=== PATIENT | female | born 1960 | race Caucasian/White ===

== ENCOUNTER 2018-05-01 12:49 | Emergency (ER) | payer OTHER, SELFPAY ==
[2018-05-01 12:55] VITALS: BP 113/75; PULSE 78; RESP 18; TEMP 36.7; O2SAT 98
--- NOTE | 2018-05-01 13:50 | ED_ITS ---
HPI - Back Pain/Injury <Elena Benton PA-C - Last Filed: 05/01/18 19:41> General Chief Complaint: Back Pain/Injury Stated Complaint: BACK PAIN/LEFT SIDE Time Seen by Provider: 05/01/18 13:46 Source: patient Mode of arrival: ambulatory Limitations: no limitations History of Present Illness HPI Narrative: This 58-year-old female complains of left sided back pain after a fall yesterday. She states she on a stump, and fell backwards, hitting her right lower thoracic and lumbar area on a stump. She denies any other injury, head contusion or LOC. She states she was slightly sore yesterday but took Tylenol and used a heating pad and felt okay last night. She states that she slept fine. She states that initially on awakening this morning she did not have any pain, but throughout the day she has had progressively worsening pain that feels like it is on the left side of her back, but can radiate down into her lower back, and also seems to radiate around to her anterior thigh as well. She does think she could have hit her hip area on the stump as well. She denies any weakness or paresthesia in the left leg. She denies any pain in the posterior or lateral leg. She has not had any urinary or bowel problems or changes. She states that she is not in pain at rest. It isn't painful to move her leg but painful to move her trunk. Pain has not been relieved with Tylenol today as it was yesterday. Related Data Home Medications Medication Instructions Recorded Confirmed albuterol sulfate 1 puff INHALATION Q4-6H PRN 05/01/18 05/01/18 cetirizine [Zyrtec] 10 mg PO QPM 05/01/18 05/01/18 cholecalciferol (vitamin D3) 5,000 unit PO QPM 05/01/18 05/01/18 [Vitamin D3] citalopram [Celexa] 20 mg PO QPM 05/01/18 05/01/18 fluticasone-salmeterol [Advair 1 puff INHALATION BID 05/01/18 05/01/18 Diskus] [id number]-ftgicawz-[id number] 1 tab PO QPM 05/01/18 05/01/18 [Multivitamin 50 Plus] vitamin K2 1 tab PO QPM 05/01/18 05/01/18 Previous Rx's Medication Instructions Recorded cyclobenzaprine 10 mg PO Q8H PRN #14 tab 05/01/18 lidocaine [Lidoderm] 2 patch TOP DAILY #30 each 05/01/18 meloxicam [Mobic] 15 mg PO DAILY #20 tab 05/01/18 oxycodone-acetaminophen [Percocet] 1 tab PO Q6H PRN #8 tab 05/01/18 Allergies Allergy/AdvReac Type Severity Reaction Status Date / Time hydrocodone [From VICODIN] Allergy Mild flu like Verified 05/01/18 14:42 symptoms Review of Systems <Elena Benton PA-C - Last Filed: 05/01/18 19:41> Review of Systems All systems reviewed & are unremarkable except as noted in HPI and below Exam <Elena Benton PA-C - Last Filed: 05/01/18 19:41> Narrative Exam Narrative: GENERAL APPEARANCE: Patient sitting comfortably, in no distress. LUNGS: Clear to auscultation bilaterally. HEART: Rate and rhythm regular without murmur, normal S1 and S2, no S3 or S4. MUSCULOSKELETAL: No point tenderness over the thoracic or lumbar spine, however at the T12-L2 levels she has left paraspinal musculature tenderness, also tenderness in the remainder of the musculature out to the mid scapular line through the lumbar area and also posterior hip and sacroiliac sites. No bony tenderness over the left hip, femur, or knee. She has full range of motion of the left hip, knee, and ankle without tenderness. Tender with any attempts at trunk range of motion, able to move from supine to sit. Lower extremity strength 5/5 bilaterally throughout bilateral hip flexors, knee extensors, foot plantar flexion. NEUROVASCULAR: Ft are warm and pink with pedal pulses intact, sensation grossly intact Initial Vital Signs Initial Vital Signs: Vital Signs Temperature 98.0 F 05/01/18 12:55 Pulse Rate 78 05/01/18 12:55 Respiratory Rate 18 05/01/18 12:55 Blood Pressure 113/75 05/01/18 12:55 Pulse Oximetry 98 05/01/18 12:55 <Jasiel Benavidez DO - Last Filed: 05/04/18 18:38> Initial Vital Signs Initial Vital Signs: Vital Signs Temperature 98.0 F 05/01/18 12:55 Pulse Rate 78 05/01/18 12:55 Respiratory Rate 18 05/01/18 12:55 Blood Pressure 113/75 05/01/18 12:55 Pulse Oximetry 98 05/01/18 12:55 Course <Elena Benton PA-C - Last Filed: 05/01/18 19:41> Additional Information: Patient is feeling more comfortable at the time of discharge. No acute neurologic symptoms. Advised return if any acute changes/ worsening, otherwise rest, medication management and follow-up with PCP as she may need further workup or a referral for therapy. She is agreeable Orders Ordered: Discontinued Medications Ibuprofen (Advil) 800 mg PO NOW ONE Stop: 05/01/18 14:03 Last Admin: 05/01/18 14:12 Dose: 800 mg Oxycodone/Acetaminophen (Percocet 5/325) 1 tab PO NOW ONE Stop: 05/01/18 14:03 Last Admin: 05/01/18 14:12 Dose: 1 tab Vital Signs - 8 hr 05/01/18 12:55 05/01/18 16:30 Temperature 98.0 F 97.9 F Pulse Rate 78 65 Respiratory Rate 18 16 Blood Pressure 113/75 Blood Pressure [Left Arm] 107/65 Pulse Oximetry 98 98 <Jasiel Benavidez DO - Last Filed: 05/04/18 18:38> Orders Ordered: Discontinued Medications Ibuprofen (Advil) 800 mg PO NOW ONE Stop: 05/01/18 14:03 Last Admin: 05/01/18 14:12 Dose: 800 mg Oxycodone/Acetaminophen (Percocet 5/325) 1 tab PO NOW ONE Stop: 05/01/18 14:03 Last Admin: 05/01/18 14:12 Dose: 1 tab Vital Signs - 8 hr 05/01/18 12:55 05/01/18 16:30 Temperature 98.0 F 97.9 F Pulse Rate 78 65 Respiratory Rate 18 16 Blood Pressure 113/75 Blood Pressure [Left Arm] 107/65 Pulse Oximetry 98 98 MDM - Back Pain/Injury <Elena Benton PA-C - Last Filed: 05/01/18 19:41> Imaging Data T/L, hip: Radiologist's impression: [address] [address] XRay Report Signed Patient: Jinny Felder MR#: [id number] : 1960 Acct:[id number] Age/Sex: 58 / F Date of Service: 05/01/18 Loc: ED Accession Number: [id number] Procedure: XR thoracic spine 3V Ordering Provider: Elena Benton P.A-C PROCEDURE: XR THORACIC SPINE 3V INDICATIONS: fall, L. paraspinal pain TECHNIQUE: 3 views of the thoracic spine were acquired. COMPARISON: None. FINDINGS: Bones: On the lateral views, the cervicothoracic junction is adequately visualized and the alignment through this region is within normal limits. The vertebral body heights are within normal limits throughout the thoracic spine without evidence to suggest acute compression fracture. The bone mineralization is within normal limits. Mild to moderate multilevel degenerative changes of the thoracic spine are evident. Soft tissues: The imaged overlying soft tissues of the chest are within normal limits. IMPRESSION: Mild to moderate multilevel degenerative changes of the thoracic spine. No fractures. Dictated by: Pool Garcia M.D. on 05/01/2018 at 14:03 Approved by: Pool Garcia M.D. on 05/01/2018 at 14:03 [place] [address] XRay Report Signed Patient: Jinny Felder MR#: [id number] : 1960 Acct:[id number] Age/Sex: 58 / F Date of Service: 05/01/18 Loc: ED Accession Number: [id number] Procedure: XR hip w pel if done LT 2V Ordering Provider: Elena Benton P.A-C PROCEDURE: XR HIP W PEL IF DONE LT 2V INDICATIONS: fall, pain TECHNIQUE: 2 views of the hip were acquired. COMPARISON: None. FINDINGS: Bones: No fractures or dislocations. No suspicious bony lesions. The visualized pelvic ring appears intact. Mild degenerative changes of the bilateral hips are present. There moderate degenerative changes of the imaged portions of the lumbosacral spine and pubic symphysis. Soft tissues: No suspicious soft tissue calcifications or masses. A surgical clip within the left hemipelvis likely is related to a previous tubal ligation procedure. A large amount of residual stool is seen throughout the colon. This may be related to constipation. Please correlate clinically. IMPRESSION: Mild degenerative changes of the left hip without acute fracture evident. Dictated by: Pool Garcia M.D. on 05/01/2018 at 13:59 Approved by: Pool Garcia M.D. on 05/01/2018 at 14:03 View Report History [address] [address] XRay Report Signed Patient: Jinny Felder MR#: [id number] : 1960 Acct:[id number] Age/Sex: 58 / F Date of Service: 05/01/18 Loc: ED Accession Number: [id number] Procedure: XR lumbar spine 2-3V Ordering Provider: Elena Benton P.A-C PROCEDURE: XR LUMBAR SPINE 2-3V INDICATIONS: fall, contusion, L paraspinal pain, anterior LE pain TECHNIQUE: 2 views of the lumbar spine were acquired. COMPARISON: [facility], MR, L-SPINE WITHOUT CONTRAST, 07/16/2012, 17:54. FINDINGS: Bones: There are 5 lumbar-type vertebral bodies. The lowest intervertebral disk space is designated as L5-S1. The vertebral body heights are well-maintained without evidence to suggest an acute compression fracture. The bone mineralization is within normal limits. Moderate degenerative changes of the lumbar spine are identified. Soft tissues: The soft tissues of the imaged abdomen and pelvis are within normal limits. A large to moderate amount of residual stool is seen throughout the included portions of the colon. IMPRESSION: 1. Moderate degenerative changes of the lumbar spine without an acute fracture evident. 2. Prominent residual stool within the colon may represent constipation. Dictated by: Pool Garcia M.D. on 05/01/2018 at 14:04 Approved by: Pool Garcia M.D. on 05/01/2018 at 14:09 View Report History [address] [address] XRay Report Signed Patient: Jinny Felder MR#: [id number] : 1960 Acct:[id number] Age/Sex: 58 / F Date of Service: 05/01/18 Loc: ED Accession Number: [id number] Procedure: XR lumbar spine 2-3V Ordering Provider: Elena Benton P.A-C PROCEDURE: XR LUMBAR SPINE 2-3V INDICATIONS: fall, contusion, L paraspinal pain, anterior LE pain TECHNIQUE: 2 views of the lumbar spine were acquired. COMPARISON: [facility], MR, L-SPINE WITHOUT CONTRAST, 07/16/2012, 17:54. FINDINGS: Bones: There are 5 lumbar-type vertebral bodies. The lowest intervertebral disk space is designated as L5-S1. The vertebral body heights are well-maintained without evidence to suggest an acute compression fracture. The bone mineralization is within normal limits. Moderate degenerative changes of the lumbar spine are identified. Soft tissues: The soft tissues of the imaged abdomen and pelvis are within normal limits. A large to moderate amount of residual stool is seen throughout the included portions of the colon. IMPRESSION: 1. Moderate degenerative changes of the lumbar spine without an acute fracture evident. 2. Prominent residual stool within the colon may represent constipation. Dictated by: Pool Garcia M.D. on 05/01/2018 at 14:04 Approved by: Pool Garcia M.D. on 05/01/2018 at 14:09 Discharge Plan Departure Patient Disposition: Home Clinical Impression: Strain of lumbar region, Strain of left hip, Contusion of multiple sites Discharge Date/Time: 05/01/18 16:33 Interventions: ED Discharge Assessment Last Done: 05/01/18 16:32 Instructions: DI for Low Back Pain Activity Restrictions/Additional Instructions: There were no acute breaks or problems found on your x-rays today. You do have a little bit of arthritis, and likely strains on top of this due to the falls. I have sent in a prescription for an anti-inflammatory, called meloxicam, and the muscle relaxant, Flexeril that you have had in the past. I have also sent in a prescription for lidocaine patches, and you can use all of these as needed. I have written you a prescription for a few Percocet in case you need these over the next day or 2 to help with pain. Please remember not to take the muscle relaxant or pain pills and drive since they can make you sleepy. Please follow-up with your PCM in a few days to assess your progress and determine whether any further testing or imaging studies are needed, they may be if you are not getting better. Please return here as we talked about if you have acutely worsening symptoms, or new symptoms such as weakness or numbness in your extremities or difficulty urinating. Prescriptions: New cyclobenzaprine 10 mg tablet 10 mg PO Q8H PRN (Reason: muscle spasm) Qty: 14 RF: 0 meloxicam [Mobic] 15 mg tablet 15 mg PO DAILY Qty: 20 RF: 0 oxycodone-acetaminophen [Percocet] 5-325 mg tablet 1 tab PO Q6H PRN (Reason: acute back and hip pain) Qty: 8 RF: 0 lidocaine [Lidoderm] 5 % adhesive patch,medicated 2 patch TOP DAILY Qty: 30 RF: 0 No Action fluticasone-salmeterol [Advair Diskus] 250-50 mcg/dose blister with device 1 puff Inhalation BID RF: 0 citalopram [Celexa] 20 mg tablet 20 mg PO QPM RF: 0 cetirizine [Zyrtec] 10 mg Tablet 10 mg PO QPM RF: 0 albuterol sulfate 90 mcg/actuation Hfa Aerosol Inhaler 1 puff INHALATION Q4-6H PRN (Reason: Shortness Of Breath) RF: 0 [id number]-jtoatyiw-seccxq [Multivitamin 50 Plus] Tablet 1 tab PO QPM RF: 0 cholecalciferol (vitamin D3) [Vitamin D3] 5,000 unit Tablet 5,000 unit PO QPM RF: 0 vitamin K2 1 tab PO QPM RF: 0 Referrals: [facility] [Provider Group] <Jasiel Benavidez DO - Last Filed: 05/04/18 18:38> Cosign ED Attending Kindra Attestation: I was available for consultation during this patient's emergency department encounter
--- NOTE | 2018-05-01 14:02 | DI.RAD.S_ITS ---
PROCEDURE: XR THORACIC SPINE 3V INDICATIONS: fall, L. paraspinal pain TECHNIQUE: 3 views of the thoracic spine were acquired. COMPARISON: None. FINDINGS: Bones: On the lateral views, the cervicothoracic junction is adequately visualized and the alignment through this region is within normal limits. The vertebral body heights are within normal limits throughout the thoracic spine without evidence to suggest acute compression fracture. The bone mineralization is within normal limits. Mild to moderate multilevel degenerative changes of the thoracic spine are evident. Soft tissues: The imaged overlying soft tissues of the chest are within normal limits. IMPRESSION: Mild to moderate multilevel degenerative changes of the thoracic spine. No fractures. Dictated by: Pool Garcia M.D. on 05/01/2018 at 14:03 Approved by: Pool Garcia M.D. on 05/01/2018 at 14:03
--- NOTE | 2018-05-01 14:02 | DI.RAD.S_ITS ---
PROCEDURE: XR LUMBAR SPINE 2-3V INDICATIONS: fall, contusion, L paraspinal pain, anterior LE pain TECHNIQUE: 2 views of the lumbar spine were acquired. COMPARISON: [facility], , L-SPINE WITHOUT CONTRAST, 07/16/2012, 17:54. FINDINGS: Bones: There are 5 lumbar-type vertebral bodies. The lowest intervertebral disk space is designated as L5-S1. The vertebral body heights are well-maintained without evidence to suggest an acute compression fracture. The bone mineralization is within normal limits. Moderate degenerative changes of the lumbar spine are identified. Soft tissues: The soft tissues of the imaged abdomen and pelvis are within normal limits. A large to moderate amount of residual stool is seen throughout the included portions of the colon. IMPRESSION: 1. Moderate degenerative changes of the lumbar spine without an acute fracture evident. 2. Prominent residual stool within the colon may represent constipation. Dictated by: Pool Garcia M.D. on 05/01/2018 at 14:04 Approved by: Pool Garcia M.D. on 05/01/2018 at 14:09
--- NOTE | 2018-05-01 14:02 | DI.RAD.S_ITS ---
PROCEDURE: XR HIP W PEL IF DONE LT 2V INDICATIONS: fall, pain TECHNIQUE: 2 views of the hip were acquired. COMPARISON: None. FINDINGS: Bones: No fractures or dislocations. No suspicious bony lesions. The visualized pelvic ring appears intact. Mild degenerative changes of the bilateral hips are present. There moderate degenerative changes of the imaged portions of the lumbosacral spine and pubic symphysis. Soft tissues: No suspicious soft tissue calcifications or masses. A surgical clip within the left hemipelvis likely is related to a previous tubal ligation procedure. A large amount of residual stool is seen throughout the colon. This may be related to constipation. Please correlate clinically. IMPRESSION: Mild degenerative changes of the left hip without acute fracture evident. Dictated by: Pool Garcia M.D. on 05/01/2018 at 13:59 Approved by: Pool Garcia M.D. on 05/01/2018 at 14:03
[2018-05-01] MEDS: OXYCODONE/ACETAMINOPHEN 5/325 TABLET 1 TAB PO (14:12)
[2018-05-01] MEDS: IBUPROFEN 400 MG TABLET 800 MG PO (14:12)
--- NOTE | 2018-05-01 14:51 | PC.NURSE ---
lung sounds clear throughout.
[2018-05-01 16:30] VITALS: BP 107/65; PULSE 65; RESP 16; TEMP 36.6; O2SAT 98
== END 2018-05-01 16:33 | disposition home or self-care (01) ==
PROVIDERS: Emergency Provider Internal Medicine; PCP Orthopaedic Surgery
DX: S39.012A Strain of muscle, fascia and tendon of lower back, initial encounter (principal); S76.012A Strain of muscle, fascia and tendon of left hip, initial encounter; W19.XXXA Unspecified fall, initial encounter
CPT/HCPCS: 72072; 72100; 73502; 99282; 99284

== ENCOUNTER 2019-02-08 16:46 | Emergency (ER) | payer OTHER, SELFPAY ==
[2019-02-08 16:48] VITALS: BP 115/70; PULSE 82; RESP 14; TEMP 36.7; O2SAT 98
[2019-02-08 17:04] LABS: Bacteria Urine None Seen; RBC Urine None Seen (0-5/HPF)
[2019-02-08 17:16] LABS: Culture Indicated Urine Specimen Cultured; WBC Urine 1-5/HPF (0-5/HPF)
--- NOTE | 2019-02-08 17:25 | ED.FEMALEGU ---
HPI - Female Genitourinary <Varsha AwadEDUARDO - Last Filed: 02/08/19 20:40> General Chief complaint: Urogenital-Female Stated complaint: SUSPECTED UTI Time Seen by Provider: 02/08/19 16:54 Source: patient Mode of arrival: Ambulatory Limitations: no limitations History of Present Illness HPI Narrative: 59-year-old female presents emergency department today complaining of dysuria, frequency, and chills since yesterday. She states she has had a few urinary tract infections years ago in the past and feels like this is similar. She denies any back pain, abdominal pain, nausea, vomiting, diarrhea, chest pain, shortness of breath, or other concerning symptoms. She states she is just getting over a cold but states she is feeling much better and has not been coughing very much at all. Related Data Home Medications Medication Instructions Recorded Confirmed albuterol sulfate 1 puff INHALATION Q4-6H PRN 05/01/18 05/01/18 cetirizine [Zyrtec] 10 mg PO QPM 05/01/18 05/01/18 cholecalciferol (vitamin D3) 5,000 unit PO QPM 05/01/18 05/01/18 [Vitamin D3] citalopram [Celexa] 20 mg PO QPM 05/01/18 05/01/18 fluticasone propion-salmeterol 1 puff INHALATION BID 05/01/18 05/01/18 [Advair Diskus] qddezvukkzrl-csupsaet-hpzrvt 1 tab PO QPM 05/01/18 05/01/18 [Multivitamin 50 Plus] vitamin K2 1 tab PO QPM 05/01/18 05/01/18 Previous Rx's Medication Instructions Recorded cyclobenzaprine 10 mg PO Q8H PRN #14 tab 05/01/18 lidocaine [Lidoderm] 2 patch TOP DAILY #30 each 05/01/18 meloxicam [Mobic] 15 mg PO DAILY #20 tab 05/01/18 oxycodone-acetaminophen [Percocet] 1 tab PO Q6H PRN #8 tab 05/01/18 nitrofurantoin macrocrystal 100 mg PO Q12H 5 Days #10 cap 02/08/19 nitrofurantoin macrocrystal 100 mg PO Q12H 5 Days #10 cap 02/08/19 Allergies Allergy/AdvReac Type Severity Reaction Status Date / Time hydrocodone [From VICODIN] Allergy Mild flu like Verified 02/08/19 16:51 symptoms Review of Systems <EDUARDO Díaz - Last Filed: 02/08/19 20:40> Review of Systems Narrative: REVIEW OF SYSTEMS: GENERAL: Denies fever, chills, malaise, or wt. loss. HENT: No head trauma, sore throat, or dysphagia. EYES: No loss of vision, double vision, eye pain, or irritation. CARDIOVASCULAR: No chest pain, palpitations, or orthopnea. RESPIRATORY: No shortness of breath or cough. GASTROINTESTINAL: Denies abdominal pain. GENITOURINARY: Complains of dysuria, see HPI.. No vaginal discharge or dyspareunia. Denies concerns for STIs MUSCULOSKELETAL: No pain, weakness, or trauma. INTEGUMENTARY: No rash, lesions, or pruritus. NEURO: No numbness, tingling, memory loss, confusion, or headaches. PSYCH: No behavior or mood changes. Patient History <EDUARDO Díaz - Last Filed: 02/08/19 20:40> Medical History Anxiety and depression (Chronic) Asthma (Chronic) Seasonal allergies (Chronic) Surgical History History of partial hysterectomy (Resolved) History of tonsillectomy (Resolved) History of tubal ligation (Resolved) Family History (Updated 05/01/18 @ 14:09 by Elena Benton PA-C) Other Family history non-contributory Social History (Updated 05/01/18 @ 14:09 by Elena Benton PA-C) Smoking Status: Current every day smoker additional social history: No EtOH Family History Other Family history non-contributory Social History Smoking Status: Current every day smoker additional social history: No EtOH alcohol intake frequency: 0-2 drinks per day Substance Use Type: marijuana Exam <EDUARDO Díaz - Last Filed: 02/08/19 20:40> Narrative Exam Narrative: PHYSICAL EXAMINATION: GENERAL: Well groomed, alert, and cooperative. Answers questions promptly and appropriately. Vital signs noted. HENT: Normocephalic, atraumatic. Hearing intact. Oral mucosa is pink and moist. EYES: Conjunctiva pink, sclera white, no periorbital swelling. CARDIOVASCULAR: Regular rate. RESPIRATORY: Normal respiratory rate, trachea midline, airway patent. No stridor, nasal flaring or accessory muscle use. GASTROINTESTINAL: Bowel sounds normoactive. Abdomen is soft and non-tender. No organomegaly, no palpable masses. GENITALURINARY: No flank tenderness. MUSCULOSKELETAL: Normal gait and coordination. Equal tone and mass bilaterally. EXTREMITIES: CMS intact, no pedal edema. SKIN: Warm, dry, soft, appropriate color for ethnicity. No lesions, rashes, or wounds. NEURO: Alert and Oriented X 3. Good coordination. No ataxia, or sensory deficits, or cognitive issues. PSYCH: Appropriate affect and mood. Initial Vital Signs Initial Vital Signs: Vital Signs Temperature 98.0 F 02/08/19 16:48 Pulse Rate 82 02/08/19 16:48 Respiratory Rate 14 02/08/19 16:48 Blood Pressure 115/70 02/08/19 16:48 Pulse Oximetry 98 02/08/19 16:48 <Jasiel Benavidez DO - Last Filed: 02/09/19 08:22> Initial Vital Signs Initial Vital Signs: Vital Signs Temperature 98.0 F 02/08/19 16:48 Pulse Rate 82 02/08/19 16:48 Respiratory Rate 14 02/08/19 16:48 Blood Pressure 115/70 02/08/19 16:48 Pulse Oximetry 98 02/08/19 16:48 Course <EDUARDO Díaz - Last Filed: 02/08/19 20:40> Orders Ordered: Discontinued Medications Nitrofurantoin Macrocrystals (Macrobid 100mg Prepack) 1 bottle MISC SEEINSTR ONE Stop: 02/08/19 17:27 Last Admin: 02/08/19 17:57 Dose: 1 bottle Documented by: JAMAL Vital Signs Vital signs: Vital Signs - 8 hr 02/08/19 16:48 02/08/19 17:59 Temperature 98.0 F Pulse Rate 82 82 Respiratory Rate 14 16 Blood Pressure 115/70 118/78 Pulse Oximetry 98 97 <Jasiel Benavidez DO - Last Filed: 02/09/19 08:22> Orders Ordered: Discontinued Medications Nitrofurantoin Macrocrystals (Macrobid 100mg Prepack) 1 bottle MISC SEEINSTR ONE Stop: 02/08/19 17:27 Last Admin: 02/08/19 17:57 Dose: 1 bottle Documented by: JAMAL Vital Signs Vital signs: Vital Signs - 8 hr 02/08/19 16:48 02/08/19 17:59 Temperature 98.0 F Pulse Rate 82 82 Respiratory Rate 14 16 Blood Pressure 115/70 118/78 Pulse Oximetry 98 97 MDM - Female Genitourinary <EDUARDO Díaz - Last Filed: 02/08/19 20:40> Medical Records Attestation: I reviewed the patient's medical records. Lab Data Attestation: I reviewed the patient's lab results. Labs: Lab Results 02/08/19 Range/Units 16:53 Urine RBC None seen (0-5/HPF) Urine WBC 1-5/hpf (0-5/HPF) Urine Bacteria None seen (None) Ur Culture Indicated? Specimen cultured Urine Dip Bedside Urine Glucose Negative Bedside Urine Bilirubin - Negative Bedside Urine Ketone - Negative Urine Specific [place] 1.005 Bedside Urine Occult Blood +/- Bedside Urine pH 6.0 Bedside Urine Protein - Negative Bedside Urine Urobilinogen - Negative Bedside Urine Nitrite - Negative Bedside Urine Leukocytes + 70 Esterase MDM Narrative Medical decision making narrative: Exam and history consistent with urinary tract infection. However urinalysis only shows small amount of blood and white blood cells. Due to the fact that patient is very symptomatic, she was given antibiotics. She was instructed that she will get a call in the next few days if antibiotics need to be changed. She was encouraged to follow up with her primary care provider in the next week. Return precautions given. <Jasiel Benavidez DO - Last Filed: 02/09/19 08:22> Lab Data Labs: Lab Results 02/08/19 Range/Units 16:53 Urine RBC None seen (0-5/HPF) Urine WBC 1-5/hpf (0-5/HPF) Urine Bacteria None seen (None) Ur Culture Indicated? Specimen cultured Urine Dip Bedside Urine Glucose Negative Bedside Urine Bilirubin - Negative Bedside Urine Ketone - Negative Urine Specific [place] 1.005 Bedside Urine Occult Blood +/- Bedside Urine pH 6.0 Bedside Urine Protein - Negative Bedside Urine Urobilinogen - Negative Bedside Urine Nitrite - Negative Bedside Urine Leukocytes + 70 Esterase Discharge Plan Departure Patient Disposition: Home Clinical Impression: Urinary tract infection Qualifiers: Urinary tract infection type: acute cystitis Hematuria presence: with hematuria Qualified Code(s): N30.01 - Acute cystitis with hematuria Discharge Date/Time: 02/08/19 18:00 Instructions: DI for Urinary Tract Infection (UTI) Activity Restrictions/Additional Instructions: Thank you for entrusting me with your care today. As discussed, it appears to have a urinary tract infection. You will receive a call in 2 days if your antibiotics need to be changed based on urine culture. Please follow up with your primary care provider next few weeks if symptoms continue. Return to the emergency department if you develop chest pain, shortness of breath, syncope, slurred speech, fevers, or other concerning symptoms. [facility]. Prescriptions: New nitrofurantoin macrocrystal 100 mg capsule 100 mg PO Q12H 5 Days Qty: 10 RF: 0 nitrofurantoin macrocrystal 100 mg capsule 100 mg PO Q12H 5 Days Qty: 10 RF: 0 No Action fluticasone propion-salmeterol [Advair Diskus] 250-50 mcg/dose blister with device 1 puff Inhalation BID RF: 0 citalopram [Celexa] 20 mg tablet 20 mg PO QPM RF: 0 cetirizine [Zyrtec] 10 mg Tablet 10 mg PO QPM RF: 0 albuterol sulfate 90 mcg/actuation Hfa Aerosol Inhaler 1 puff INHALATION Q4-6H PRN (Reason: Shortness Of Breath) RF: 0 sfokmgfgsqvf-xwexgxfz-smovjh [Multivitamin 50 Plus] Tablet 1 tab PO QPM RF: 0 cholecalciferol (vitamin D3) [Vitamin D3] 5,000 unit Tablet 5,000 unit PO QPM RF: 0 vitamin K2 1 tab PO QPM RF: 0 cyclobenzaprine 10 mg tablet 10 mg PO Q8H PRN (Reason: muscle spasm) Qty: 14 RF: 0 meloxicam [Mobic] 15 mg tablet 15 mg PO DAILY Qty: 20 RF: 0 oxycodone-acetaminophen [Percocet] 5-325 mg tablet 1 tab PO Q6H PRN (Reason: acute back and hip pain) Qty: 8 RF: 0 lidocaine [Lidoderm] 5 % adhesive patch,medicated 2 patch TOP DAILY Qty: 30 RF: 0 Referrals: Kervin Ghotra MD [Primary Care Provider] - <Jasiel Benavidez DO - Last Filed: 02/09/19 08:22> Sign Out Provider Sign Out Attestation: I was available for consultation during this patient's emergency department visit. This chart is signed by myself for administrative purposes only. I did not have direct contact with this patient during this visit. They were seen independently by the APC.
[2019-02-08] MEDS: NITROFURANTOIN 100MG PREPACK 1 BOTTLE MISC (17:57)
[2019-02-08 17:59] VITALS: BP 118/78; PULSE 82; RESP 16; O2SAT 97
== END 2019-02-08 18:00 | disposition home or self-care (01) ==
PROVIDERS: Emergency Provider Nurse Practitioner; PCP Orthopaedic Surgery
DX: N30.01 Acute cystitis with hematuria (principal)
CPT/HCPCS: 81003; 81015; 87077; 87086; 87186; 99282; 99283

== ENCOUNTER 2021-03-30 16:57 | Emergency (ER) | payer OTHER, SELFPAY ==
[2021-03-30 17:04] VITALS: BP 117/70; PULSE 85; RESP 18; TEMP 36.9; O2SAT 91; BMI 25.8
--- NOTE | 2021-03-30 17:13 | DI.RAD.S_ITS ---
PROCEDURE: XR CHEST 1V INDICATIONS: Short of breath, the hypoxia TECHNIQUE: One view of the chest was acquired. COMPARISON: None. FINDINGS: Surgical changes and devices: None. Lungs and pleura: Lungs are clear. No pleural effusions or pneumothorax. Mediastinum: Mediastinal contours appear normal. Heart size is normal. Bones and chest wall: No suspicious bony lesions. Age-appropriate bony degenerative changes are seen. Minimal dextroconvex scoliotic curvature is seen. Overlying soft tissues appear unremarkable. IMPRESSION: Unremarkable portable chest for age, with clear lungs. Dictated by: Raheem Jackson M.D. on 03/30/2021 at 16:43 Approved by: Raheem Jackson M.D. on 03/30/2021 at 16:44
[2021-03-30 17:31] LABS: Add Manual Diff / Slide Review NO; Basophils Absolute Auto 100 /uL (0-100); Basophils Percent Auto 0.7 % (0-2); Eosinophils Absolute Auto 200 /uL (0-450); Hematocrit 40.8 % (36-46); Hemoglobin 13.7 g/dL (12.0-16.0); Lymphocytes Absolute Auto 1400 /uL (1100-4500); Lymphocytes Percent Auto 18.2 % (25-40); Mean Corpuscular HGB Conc 33.5 % (30-36); Mean Corpuscular Hemoglobin 32.6 PG (26-34); Mean Corpuscular Volume 97.4 fL (80-100); Monocytes Absolute Auto 800 /uL (0-900); Neutrophils Absolute Auto 5300 /uL (1500-7000); Neutrophils Percent Auto 68.1 % (50-75); Platelet Count 258 X10^3/uL (150-400); Red Blood Cell Count 4.19 X10^6/uL (4.0-5.2); Red Cell Distribution Width 12.1 % (11.6-14.8); White Blood Cell Count 7.7 X10^3/uL (4.5-11.0)
[2021-03-30 17:46] LABS: COVID19 -Nasal RAPID Negative (Negative)
[2021-03-30 18:02] LABS: BUN Creatinine Ratio 16.5 (6-22); Blood Urea Nitrogen 15 mg/dL (7-17); Calcium 9.7 mg/dL (8.4-10.2); Carbon Dioxide 28 mmol/L (22-32); Chloride 104 mmol/L (98-107); Creatine Kinase 41 U/L (30-135); Estimated Glomerular Filt Rate > 60.0 mL/min (>60); Glucose 107 mg/dL (80-110); HEMOLYSIS < 15 (0-50); Lactate (Lactic Acid) 0.7 mmol/L (0.7-2.1); Magnesium 2.1 mg/dL (1.6-2.3); Potassium 4.4 mmol/L (3.4-5.1); Sodium 138 mmol/L (137-145)
--- NOTE | 2021-03-30 18:10 | ED_ITS ---
HPI - SOB/Dyspnea General Chief Complaint: Shortness of Breath/Dyspnea Stated Complaint: SOB Time Seen by Provider: 03/30/21 18:06 Source: patient Mode of arrival: Ambulatory Limitations: no limitations History of Present Illness HPI Narrative: 61F daily smoker with history of seizure presents with a significant other and a chief complaint of increasing shortness of breath and hacking cough for the past few days. She has been using her Advair and Mucinex as instructed. She does not have a rescue inhaler. She states her symptoms started acting up after she started washing after a friend's cats to help them out. She has a known allergy to cats. She denies any fever chills. She has had no nausea, vomiting or diarrhea. Related Data Home Medications Medication Instructions Recorded Confirmed albuterol sulfate 90 mcg/actuation 1 puff INHALATION Q4-6H PRN 05/01/18 05/01/18 aerosol inhaler cetirizine 10 mg tablet (Zyrtec) 10 mg PO QPM 05/01/18 05/01/18 cholecalciferol (vitamin D3) 125 5,000 unit PO QPM 05/01/18 05/01/18 mcg (5,000 unit) tablet (Vitamin D3) citalopram 20 mg tablet 20 mg PO QPM 05/01/18 05/01/18 fluticasone 250 mcg-salmeterol 50 1 puff INHALATION BID 05/01/18 05/01/18 mcg/dose blistr powdr for inhalation akohqnjolmvx-jcylxzsd-bulhix 1 tab PO QPM 05/01/18 05/01/18 tablet (Multivitamin 50 Plus) vitamin K2 1 tab PO QPM 05/01/18 05/01/18 Previous Rx's Medication Instructions Recorded cyclobenzaprine 10 mg tablet 10 mg PO Q8H PRN #14 tab 05/01/18 lidocaine 5 % topical patch 2 patch TOP DAILY #30 each 05/01/18 (Lidoderm) meloxicam 15 mg tablet (Mobic) 15 mg PO DAILY #20 tab 05/01/18 oxycodone-acetaminophen 5 mg-325 1 tab PO Q6H PRN #8 tab 05/01/18 mg tablet (Percocet) albuterol sulfate 90 mcg/actuation 2 puff INHALATION Q4H PRN #1 each 03/30/21 breath activated powder inhaler doxycycline hyclate 100 mg tablet 100 mg PO BID #20 tab 03/30/21 prednisone 20 mg tablet 20 mg PO DAILY #5 tab 03/30/21 Allergies Allergy/AdvReac Type Severity Reaction Status Date / Time hydrocodone [From VICODIN] Allergy Mild flu like Verified 02/08/19 16:51 symptoms Review of Systems Review of Systems Narrative: GENERAL: Denies chills, fatigue, malaise, fever, sweats. HEENT: Denies sinus pain, ear pain, sore throat, difficulty swallowing, dizziness. RESPIRATORY: See HPI CARDIOVASCULAR: Denies chest pain, palpitations, orthopnea, edema, GASTROINTESTINAL: Denies nausea, vomiting, abdominal pain, diarrhea, constipation, melena. : Denies dysuria, frequency, incontinence, hematuria, urinary retention. MUSCULOSKELETAL: denies weakness, joint pain, or bony pain SKIN: Denies rash, skin lesions, or other NEUROLOGIC: Denies weakness, headache, numbness, change in speech, confusion, seizures, incoordination. PSYCHIATRIC: No concerning psychosocial issues. 12 point review of systems is negative except for those stated above Patient History Medical History Anxiety and depression Asthma Seasonal allergies Surgical History History of partial hysterectomy History of tonsillectomy History of tubal ligation Family History Other Family history non-contributory Social History Smoking Status: Current every day smoker additional social history: No EtOH Smoking Status: Current every day smoker tobacco type: cigarettes alcohol intake frequency: 0-2 drinks per day Substance Use Type: marijuana Exam Narrative Exam Narrative: GENERAL: [61 year old patient appears stated age. Well-developed patient, in mild distress. HEAD: Atraumatic. Normocephalic. EYES: Pupils equal round and reactive. Extraocular motions intact. No scleral icterus. No injection or drainage. ENT: Nose without bleeding, purulent drainage. Throat without erythema, tonsillar hypertrophy or exudate. Airway patent. NECK: Trachea midline. Non tender CARDIOVASCULAR: Regular rate and rhythm without murmurs, gallops, or rubs. RESPIRATORY: Decreased breath sounds throughout with prolonged expiratory phase GASTROINTESTINAL: Abdomen soft, non-tender, nondistended. EXTREMITIES: No edema or joint tenderness. BACK: Nontender without deformity or crepitance. No flank tenderness. NEURO: AOx3. SKIN: No rash or erythema of visible areas Initial Vital Signs Initial Vital Signs: Vital Signs Temperature 98.5 F 03/30/21 17:04 Pulse Rate 85 03/30/21 17:04 Respiratory Rate 18 03/30/21 17:04 Blood Pressure 117/70 03/30/21 17:04 Pulse Oximetry 91 03/30/21 17:04 Course Orders Ordered: Discontinued Medications Albuterol/Ipratropium (Albuterol/Ipratropium 3 Ml Ampul) 3 ml INH NOW ONE Stop: 03/30/21 18:59 Last Admin: 03/30/21 19:26 Dose: 3 ml Documented by: FADY Methylprednisolone (Methylprednisolone 125 Mg/2 Ml Vial) 125 mg IV NOW ONE Stop: 03/30/21 18:59 Last Admin: 03/30/21 19:10 Dose: 125 mg Documented by: KEN Reevaluation(s) Reevaluation #1: Patient with significantly improved respiratory exam after above-stated therapies. She has been given return precautions and has had questions answered to her apparent satisfaction Vital Signs Vital signs: Vital Signs - 8 hr 03/30/21 17:04 Temperature 98.5 F Pulse Rate 85 Respiratory Rate 18 Blood Pressure 117/70 Pulse Oximetry 91 MDM - SOB/Dyspnea Lab Data Result diagrams: 03/30/21 17:23 03/30/21 17:23 Labs: Lab Results 03/30/21 03/30/21 03/30/21 Range/Units 17:05 17:10 17:10 WBC (4.5-11.0) X10^3/uL RBC (4.0-5.2) X10^6/uL Hgb (12.0-16.0) g/dL Hct (36-46) % MCV (80-100) fL MCH (26-34) PG MCHC (30-36) % RDW (11.6-14.8) % Plt Count (150-400) X10^3/uL Neut % (Auto) (50-75) % Lymph % (Auto) (25-40) % [place] % (Auto) (3-14) % Eos % (Auto) (2-4) % Baso % (Auto) (0-2) % Neut # (Auto) (6436-2351) /uL Lymph # (Auto) (5874-8349) /uL [place] # (Auto) (0-900) /uL Eos # (Auto) (0-450) /uL Baso # (Auto) (0-100) /uL D-Dimer < 200 (<230) ng/mL Sodium (137-145) mmol/L Potassium (3.4-5.1) mmol/L Chloride (98-107) mmol/L Carbon Dioxide (22-32) mmol/L BUN (7-17) mg/dL Creatinine (0.52-1.04) mg/dL Estimated GFR (>60) mL/min BUN/Creatinine Ratio (6-22) Glucose (80-110) mg/dL Lactate (0.7-2.1) mmol/L Calcium (8.4-10.2) mg/dL Magnesium (1.6-2.3) mg/dL Total Creatine Kinase (30-135) U/L CK-MB (CK-2) CK-MB (CK-2) Rel Index Troponin I (0.01-0.034) ng/mL Chlamy pneumoniae PCR Not detected (Not Detect) Adenovirus (PCR) Not detected (Not Detect) B. pertussis DNA (PCR) Not detected (Not Detecte) B.parapertussis DNA PCR Not detected (Not Detecte) Coronavirus OC43 (PCR) Not detected (Not Detect) Coronavirus HKU1 (PCR) Not detected (Not Detect) Coronavirus 229E (PCR) Not detected (Not Detect) SARS-CoV-2 (PCR) Negative Not detected (Negative) Coronavirus NL63 (PCR) Not detected (Not Detect) Human Metapneumovir PCR Not detected (Not Detect) Influenza Type A (PCR) Not detected (Not Detect) Influenza Type B (PCR) Not detected (Not Detect) M. pneumoniae (PCR) Not detected (Not Detect) Parainfluenza 1 (PCR) Not detected (Not Detect) Parainfluenza 2 (PCR) Not detected (Not Detect) Parainfluenza 3 (PCR) Not detected (Not Detect) Parainfluenza 4 (PCR) Not detected (Not Detect) RSV (PCR) Not detected (Not Detect) Entero/Rhino (PCR) Detected H (Not Detect) 03/30/21 03/30/21 03/30/21 Range/Units 17:23 17:23 17:23 WBC 7.7 (4.5-11.0) X10^3/uL RBC 4.19 (4.0-5.2) X10^6/uL Hgb 13.7 (12.0-16.0) g/dL Hct 40.8 (36-46) % MCV 97.4 (80-100) fL MCH 32.6 (26-34) PG MCHC 33.5 (30-36) % RDW 12.1 (11.6-14.8) % Plt Count 258 (150-400) X10^3/uL Neut % (Auto) 68.1 (50-75) % Lymph % (Auto) 18.2 L (25-40) % [place] % (Auto) 10.0 (3-14) % Eos % (Auto) 3.0 (2-4) % Baso % (Auto) 0.7 (0-2) % Neut # (Auto) 5300 (4563-7387) /uL Lymph # (Auto) 1400 (2377-0910) /uL [place] # (Auto) 800 (0-900) /uL Eos # (Auto) 200 (0-450) /uL Baso # (Auto) 100 (0-100) /uL D-Dimer (<230) ng/mL Sodium 138 (137-145) mmol/L Potassium 4.4 (3.4-5.1) mmol/L Chloride 104 (98-107) mmol/L Carbon Dioxide 28 (22-32) mmol/L BUN 15 (7-17) mg/dL Creatinine 0.91 (0.52-1.04) mg/dL Estimated GFR > 60.0 (>60) mL/min BUN/Creatinine Ratio 16.5 (6-22) Glucose 107 (80-110) mg/dL Lactate 0.7 (0.7-2.1) mmol/L Calcium 9.7 (8.4-10.2) mg/dL Magnesium 2.1 (1.6-2.3) mg/dL Total Creatine Kinase 41 (30-135) U/L CK-MB (CK-2) TNP CK-MB (CK-2) Rel Index TNP Troponin I < 0.012 (0.01-0.034) ng/mL Chlamy pneumoniae PCR (Not Detect) Adenovirus (PCR) (Not Detect) B. pertussis DNA (PCR) (Not Detecte) B.parapertussis DNA PCR (Not Detecte) Coronavirus OC43 (PCR) (Not Detect) Coronavirus HKU1 (PCR) (Not Detect) Coronavirus 229E (PCR) (Not Detect) SARS-CoV-2 (PCR) (Negative) Coronavirus NL63 (PCR) (Not Detect) Human Metapneumovir PCR (Not Detect) Influenza Type A (PCR) (Not Detect) Influenza Type B (PCR) (Not Detect) M. pneumoniae (PCR) (Not Detect) Parainfluenza 1 (PCR) (Not Detect) Parainfluenza 2 (PCR) (Not Detect) Parainfluenza 3 (PCR) (Not Detect) Parainfluenza 4 (PCR) (Not Detect) RSV (PCR) (Not Detect) Entero/Rhino (PCR) (Not Detect) Discharge Plan Departure Patient Disposition: Home Clinical Impression: Chronic obstructive pulmonary disease with (acute) exacerbation, Atypical pneumonia Activity Restrictions/Additional Instructions: *You have been diagnosed with [COPD exacerbation with atypical pneumonia ] *What to do: *Please continue to take your regular medications as directed. [ x] New medication prescriptions sent to your pharmacy: [ [facility]] [ ] New medication written as a paper prescription [ ] No new medications given *Please follow up with your primary care provider in 2-3 days, call for an appointment. Let them know you were seen in the Emergency Department and that we ask that you be seen in follow up. We will electronically transmit a record of today's note if your PCP is in our system *If you do not have a primary care provider please contact the [facility] Resource line at [phone]. They will ask some questions about your medical history and help get you set up with a doctor in the community. *Return to Emergency Department if you should have any new, worsening or concerning symptoms, such as [fever greater than 101 F, shaking chills, worsening pain, persistent vomiting or other bothersome symptoms] Prescriptions: New prednisone 20 mg tablet 20 mg PO DAILY Qty: 5 0RF Rx Instructions: administer with food or milk doxycycline hyclate 100 mg tablet 100 mg PO BID Qty: 20 0RF albuterol sulfate 90 mcg/actuation aerosol powdr breath activated 2 puff INHALATION Q4H PRN (Reason: shortness of breath or wheezing) Qty: 1 0RF Rx Instructions: administer with spacer No Action fluticasone propion-salmeterol [Advair Diskus] 250-50 mcg/dose blister with device 1 puff Inhalation BID 0RF citalopram [Celexa] 20 mg tablet 20 mg PO QPM 0RF cetirizine [Zyrtec] 10 mg Tablet 10 mg PO QPM 0RF albuterol sulfate 90 mcg/actuation Hfa Aerosol Inhaler 1 puff INHALATION Q4-6H PRN (Reason: Shortness Of Breath) 0RF plqyvltdteuy-rpsgnifo-mvgova [Multivitamin 50 Plus] Tablet 1 tab PO QPM 0RF cholecalciferol (vitamin D3) [Vitamin D3] 5,000 unit Tablet 5,000 unit PO QPM 0RF vitamin K2 1 tab PO QPM 0RF cyclobenzaprine 10 mg tablet 10 mg PO Q8H PRN (Reason: muscle spasm) Qty: 14 0RF Rx Instructions: 1/2-1 tab up to q8h prn. Do not drive meloxicam [Mobic] 15 mg tablet 15 mg PO DAILY Qty: 20 0RF Rx Instructions: not with other NSAIDS oxycodone-acetaminophen [Percocet] 5-325 mg tablet 1 tab PO Q6H PRN (Reason: acute back and hip pain) Qty: 8 0RF Rx Instructions: do not drive lidocaine [Lidoderm] 5 % adhesive patch,medicated 2 patch TOP DAILY Qty: 30 0RF Rx Instructions: apply 1-3 patches daily and leave on most painful area for 12 hrs Referrals: Kervin Ghotra MD [Primary Care Provider] -
[2021-03-30 18:14] LABS: Troponin I < 0.012 ng/mL (0.01-0.034)
[2021-03-30 18:35] LABS: D Dimer < 200 ng/mL (<230)
[2021-03-30 18:46] LABS: Adenovirus Not Detected (Not Detect); Coronavirus 229E Not Detected (Not Detect); Coronavirus HKU1 Not Detected (Not Detect); Coronavirus NL 63 Not Detected (Not Detect); Coronavirus OC43 Not Detected (Not Detect); Human Metapneumovirus Not Detected (Not Detect); SARS- CoV-2 Not Detected (Not Detecte)
[2021-03-30 18:47] LABS: B. parapertussis Not Detected (Not Detecte); Bordetella pertussis Not Detected (Not Detecte); Chlamydophila pneumoniae Not Detected (Not Detect); Human Rhinovirus/Enterovirus Detected (Not Detect); Influenza A Not Detected (Not Detect); Influenza B Not Detected (Not Detect); Mycoplasma pneumoniae Not Detected (Not Detect); Parainfluenza Virus 1 Not Detected (Not Detect); Parainfluenza Virus 2 Not Detected (Not Detect); Parainfluenza Virus 3 Not Detected (Not Detect); Parainfluenza Virus 4 Not Detected (Not Detect); Respiratory Syncytial Virus Not Detected (Not Detect)
[2021-03-30] MEDS: methylPREDNISolone 125 MG/2 ML VIAL IV (19:10)
[2021-03-30 19:12] VITALS: BP 124/64; PULSE 70; RESP 20; O2SAT 94
[2021-03-30] MEDS: ALBUTEROL/IPRATROPIUM 3 ML AMPUL INH (19:26)
[2021-03-30 19:36] VITALS: PULSE 73; RESP 16; O2SAT 93
[2021-03-30 20:00] VITALS: BP 122/73; PULSE 77; RESP 20; O2SAT 93
== END 2021-03-30 20:12 | disposition home or self-care (01) ==
PROVIDERS: Emergency Medicine; Emergency Provider Emergency Medicine; PCP Orthopaedic Surgery
DX: J44.1 Chronic obstructive pulmonary disease with (acute) exacerbation (principal); J18.8 Other pneumonia, unspecified organism; F17.210 Nicotine dependence, cigarettes, uncomplicated; Z20.822 Contact with and (suspected) exposure to COVID-19
CPT/HCPCS: 36415; 71045; 80048; 82550; 83605; 83735; 84484; 85025; 85379; 87633; 87635; 94640; 96374; 99284; C9803; J2930

== ENCOUNTER 2022-07-25 09:50 | Emergency (ER) | payer OTHER, SELFPAY ==
[2022-07-25] VITALS (8 sets, daily range): BP systolic 124–140; BP diastolic 66–81; PULSE 70–82; RESP 16–29; TEMP 36.2; O2SAT 91–96; BMI 25.8
--- NOTE | 2022-07-25 10:11 | DI.RAD.S_ITS ---
PROCEDURE: XR CHEST 1V INDICATIONS: Shortness of breath TECHNIQUE: One view of the chest was acquired. COMPARISON: [facility], , XR CHEST 1V, 03/30/2021, 17:34. FINDINGS: Surgical changes and devices: None. Lungs and pleura: Lungs are clear. No pleural effusions or pneumothorax. Mediastinum: Mediastinal contours appear normal. Heart size is normal. Bones and chest wall: No suspicious bony lesions. Overlying soft tissues appear unremarkable. IMPRESSION: No acute cardiopulmonary pathology. Dictated by: David Silveira M.D. on 07/25/2022 at 10:18 Approved by: David Silveira M.D. on 07/25/2022 at 10:18
--- NOTE | 2022-07-25 10:18 | ED.SOB ---
HPI - SOB/Dyspnea General Chief Complaint: Shortness of Breath/Dyspnea Stated Complaint: SOB dyspnea Time Seen by Provider: 07/25/22 10:17 Source: patient, RN notes reviewed and old records reviewed Mode of arrival: Family Vehicle Limitations: no limitations History of Present Illness HPI Narrative: This is a 62-year-old female with history of seasonal allergies, asthma and anxiety who presents with shortness of breath that has been going on for about 1-1/2 weeks with productive clear sputum, patient states no fevers or chills, she has not noticed increased nasal congestion or other infectious symptoms she is had a little bit of light discomfort up in her chest in the upper throat area. No chest pressure or pain. She states she is felt more short of breath with exertion. She denies any diaphoresis. No nausea or vomiting, no swelling for extremities. No changes to bowel movements or urination. No known sick contacts. She states she does have a history of asthma she uses Advair 250/50 daily, she uses albuterol she is been using it twice daily which is atypical for her. She takes Zyrtec, Celexa, vitamin-D, multivitamin and a nasal decongestant daily. Patient states prior surgeries include hysterectomy, no known cardiac history or stents. She does smoke a half pack daily, occasional alcohol, no illicit. Her primary care is through the [facility]. Patient states she presents today as her symptoms have not been improving she is not feeling significantly worse. Related Data Home Medications Medication Instructions Recorded Confirmed albuterol sulfate 90 mcg/actuation 1 puff inhalation Q4-6H PRN 05/01/18 05/01/18 aerosol inhaler Shortness Of Breath cetirizine 10 mg tablet (Zyrtec) 10 mg PO QPM 05/01/18 05/01/18 cholecalciferol (vitamin D3) 125 5,000 unit PO QPM 05/01/18 05/01/18 mcg (5,000 unit) tablet (Vitamin D3) citalopram 20 mg tablet 20 mg PO QPM 05/01/18 05/01/18 fluticasone 250 mcg-salmeterol 50 1 puff inhalation BID 05/01/18 05/01/18 mcg/dose blistr powdr for inhalation [id number] 1 tab PO QPM 01/03/19 01/03/19 tablet (Multivitamin 50 Plus tablet) vitamin K2 1 tab PO QPM 05/01/18 05/01/18 Previous Rx's Medication Instructions Recorded cyclobenzaprine 10 mg tablet 10 mg PO Q8H PRN muscle spasm #14 05/01/18 tabs lidocaine 5 % topical patch 2 patch topical DAILY #30 ea 05/01/18 (Lidoderm) meloxicam 15 mg tablet (Mobic) 15 mg PO DAILY pain #20 tabs 05/01/18 oxycodone-acetaminophen 5 mg-325 1 tab PO Q6H PRN acute back and 05/01/18 mg tablet (Percocet) hip pain #8 tabs albuterol sulfate 90 mcg/actuation 2 puff inhalation Q4H PRN 03/30/21 breath activated powder inhaler shortness of breath or wheezing #1 ea doxycycline hyclate 100 mg tablet 100 mg PO BID #20 tabs 03/30/21 prednisone 20 mg tablet 20 mg PO DAILY #5 tabs 03/30/21 prednisone 50 mg tablet 50 mg PO DAILY #5 tabs 07/25/22 Allergies Allergy/AdvReac Type Severity Reaction Status Date / Time hydrocodone [From VICODIN] Allergy Mild flu like Verified 07/25/22 10:47 symptoms Review of Systems Review of Systems ROS Unobtainable: All systems reviewed & are unremarkable except as noted in HPI and below Patient History Medical History (Updated 07/25/22 @ 18:38 by Deb Paula DO) Anxiety and depression Asthma Seasonal allergies Surgical History History of partial hysterectomy History of tonsillectomy History of tubal ligation Family History Other Family history non-contributory Social History Smoking Status: Current every day smoker additional social history: No EtOH Smoking Status: Current every day smoker tobacco type: cigarettes alcohol intake frequency: 0-2 drinks per day Substance Use Type: marijuana Exam Narrative Exam Narrative: GENERAL: Alert and oriented x three, elderly female in mild distress HEENT: Head normocephalic, atraumatic, EOMI, pupils reactive, nares are clear, face symmetric, moist mucous membranes NECK: Supple, full range of motion CARDIOVASCULAR: Regular rate and rhythm without murmurs, rubs or gallops. No JVD. No swelling bilateral lower extremities. RESPIRATORY: Breath sounds equal bilaterally, patient has expiratory inspiratory wheeze bilateral bases, not appreciated much at the upper lungs bilaterally, no rales or rhonchi. No tachypnea. No accessory muscle use. Patient's speaks in full sentences. ABDOMEN: Soft, nontender. Normoactive bowel sounds all 4 quadrants. No guarding or rebound, rigidity, no mass : No CVA tenderness EXTREMITIES: Normal range of motion, no clubbing or edema. Neurovascularly intact NEUROLOGICAL: Cranial nerves II through XII grossly intact. Moving all extremities SKIN: Warm, dry, no petechiae, no rashes or lesions. Initial Vital Signs Initial Vital Signs: Vital Signs Pulse Rate 82 07/25/22 10:05 Blood Pressure 140/81 07/25/22 10:05 Pulse Oximetry 95 07/25/22 10:05 Oxygen Delivery Method Room Air 07/25/22 10:05 Course Orders Ordered: ED Orders 07/25/22 10:10 Complete Blood Count AUTO DIFF Stat Comprehensive Metabolic Panel Stat Lactate (Lactic Acid) Stat NT-proBNP (BNP-Adult 18+) Stat Prothrombin Time INR Stat Troponin I Stat 07/25/22 10:11 XR chest 1V Stat EKG-12 Lead Stat Measure peak expiratory flow ONCE RT Consult Eval and Treat NOW 07/25/22 10:15 Respiratory Panel (Film Array) Stat Discontinued Medications Albuterol/Ipratropium (Albuterol/Ipratropium 3 Ml Ampul) 3 ml INH NOW ONE Stop: 07/25/22 10:38 Last Admin: 07/25/22 10:48 Dose: 3 ml Documented By: HAILEEF Methylprednisolone (Methylprednisolone 125 Mg/2 Ml Vial) 125 mg IV NOW ONE Stop: 07/25/22 10:38 Last Admin: 07/25/22 10:59 Dose: 125 mg Documented By: RLS Vital Signs Vital signs: Vital Signs - 8 hr 07/25/22 10:48 07/25/22 11:00 07/25/22 11:01 Pulse Rate 73 81 Respiratory Rate 16 29 H Blood Pressure 127/76 Pulse Oximetry 95 91 Oxygen Delivery Method Room Air 07/25/22 11:01 07/25/22 11:30 07/25/22 11:30 Pulse Rate 76 70 Respiratory Rate 28 H 21 Blood Pressure 129/66 Pulse Oximetry 96 92 Oxygen Delivery Method 07/25/22 12:00 07/25/22 12:00 Pulse Rate 74 Respiratory Rate 21 Blood Pressure 124/68 Pulse Oximetry 91 Oxygen Delivery Method MDM - SOB/Dyspnea Lab Data 07/25/22 10:10 07/25/22 10:10 Labs: Lab Results 07/25/22 07/25/22 07/25/22 Range/Units 10:10 10:10 10:10 WBC 5.6 (4.5-11.0) X10^3/uL RBC 4.16 (4.0-5.2) X10^6/uL Hgb 14.2 (12.0-16.0) g/dL Hct 41.3 (36-46) % MCV 99.3 (80-100) fL MCH 34.0 (26-34) PG MCHC 34.3 (30-36) % RDW 11.9 (11.6-14.8) % Plt Count 272 (150-400) X10^3/uL Neut % (Auto) 57.2 (50-75) % Lymph % (Auto) 29.3 (25-40) % Bartholomew % (Auto) 8.1 (3-14) % Eos % (Auto) 4.5 H (2-4) % Baso % (Auto) 0.9 (0-2) % Neut # (Auto) 3200 (5368-9727) /uL Lymph # (Auto) 1700 (5153-2798) /uL Bartholomew # (Auto) 500 (0-900) /uL Eos # (Auto) 300 (0-450) /uL Baso # (Auto) 0 (0-100) /uL PT 10.9 (10.1-12.7) SECONDS INR 1.0 (0.9-1.3) Sodium 138 (137-145) mmol/L Potassium 4.6 (3.4-5.1) mmol/L Chloride 104 (98-107) mmol/L Carbon Dioxide 30 (22-32) mmol/L BUN 17 (7-17) mg/dL Creatinine 0.85 (0.52-1.04) mg/dL Estimated GFR > 60 (>60) mL/min BUN/Creatinine Ratio 20.0 (6-22) Glucose 94 (80-110) mg/dL Lactate (0.7-2.1) mmol/L Calcium 8.8 (8.4-10.2) mg/dL Total Bilirubin 0.6 (0.2-1.3) mg/dL AST 24 (14-36) IU/L ALT 19 (<35) IU/L Alkaline Phosphatase 79 (38-126) U/L Troponin I < 0.012 (0.01-0.034) ng/mL NT-Pro-B Natriuret Pep 64 (<125) pg/mL Total Protein 7.1 (6.3-8.2) g/dL Albumin 4.1 (3.5-5.0) g/dL Globulin 3.0 (1.7-4.1) g/dL Albumin/Globulin Ratio 1.4 (1.0-2.8) Chlamy pneumoniae PCR (Not Detect) Adenovirus (PCR) (Not Detect) B. pertussis DNA (PCR) (Not Detecte) B.parapertussis DNA PCR (Not Detecte) Coronavirus OC43 (PCR) (Not Detect) Coronavirus HKU1 (PCR) (Not Detect) Coronavirus 229E (PCR) (Not Detect) SARS-CoV-2 (PCR) (Not Detecte) Coronavirus NL63 (PCR) (Not Detect) Human Metapneumovir PCR (Not Detect) Influenza Type A (PCR) (Not Detect) Influenza Type B (PCR) (Not Detect) M. pneumoniae (PCR) (Not Detect) Parainfluenza 1 (PCR) (Not Detect) Parainfluenza 2 (PCR) (Not Detect) Parainfluenza 3 (PCR) (Not Detect) Parainfluenza 4 (PCR) (Not Detect) RSV (PCR) (Not Detect) Entero/Rhino (PCR) (Not Detect) 07/25/22 07/25/22 Range/Units 10:10 10:15 WBC (4.5-11.0) X10^3/uL RBC (4.0-5.2) X10^6/uL Hgb (12.0-16.0) g/dL Hct (36-46) % MCV (80-100) fL MCH (26-34) PG MCHC (30-36) % RDW (11.6-14.8) % Plt Count (150-400) X10^3/uL Neut % (Auto) (50-75) % Lymph % (Auto) (25-40) % Bartholomew % (Auto) (3-14) % Eos % (Auto) (2-4) % Baso % (Auto) (0-2) % Neut # (Auto) (3440-3344) /uL Lymph # (Auto) (1209-8238) /uL Bartholomew # (Auto) (0-900) /uL Eos # (Auto) (0-450) /uL Baso # (Auto) (0-100) /uL PT (10.1-12.7) SECONDS INR (0.9-1.3) Sodium (137-145) mmol/L Potassium (3.4-5.1) mmol/L Chloride (98-107) mmol/L Carbon Dioxide (22-32) mmol/L BUN (7-17) mg/dL Creatinine (0.52-1.04) mg/dL Estimated GFR (>60) mL/min BUN/Creatinine Ratio (6-22) Glucose (80-110) mg/dL Lactate 0.8 (0.7-2.1) mmol/L Calcium (8.4-10.2) mg/dL Total Bilirubin (0.2-1.3) mg/dL AST (14-36) IU/L ALT (<35) IU/L Alkaline Phosphatase (38-126) U/L Troponin I (0.01-0.034) ng/mL NT-Pro-B Natriuret Pep (<125) pg/mL Total Protein (6.3-8.2) g/dL Albumin (3.5-5.0) g/dL Globulin (1.7-4.1) g/dL Albumin/Globulin Ratio (1.0-2.8) Chlamy pneumoniae PCR Not detected (Not Detect) Adenovirus (PCR) Not detected (Not Detect) B. pertussis DNA (PCR) Not detected (Not Detecte) B.parapertussis DNA PCR Not detected (Not Detecte) Coronavirus OC43 (PCR) Not detected (Not Detect) Coronavirus HKU1 (PCR) Not detected (Not Detect) Coronavirus 229E (PCR) Not detected (Not Detect) SARS-CoV-2 (PCR) Not detected (Not Detecte) Coronavirus NL63 (PCR) Not detected (Not Detect) Human Metapneumovir PCR Not detected (Not Detect) Influenza Type A (PCR) Not detected (Not Detect) Influenza Type B (PCR) Not detected (Not Detect) M. pneumoniae (PCR) Not detected (Not Detect) Parainfluenza 1 (PCR) Not detected (Not Detect) Parainfluenza 2 (PCR) Not detected (Not Detect) Parainfluenza 3 (PCR) Not detected (Not Detect) Parainfluenza 4 (PCR) Not detected (Not Detect) RSV (PCR) Not detected (Not Detect) Entero/Rhino (PCR) Detected H (Not Detect) Imaging Data Chest x-ray: Radiologist's Impression: [address] [address] XRay Report Signed Patient: Jinny Felder MR#: [id number] : 1960 Acct:[id number] Age/Sex: 62 / F Date of Service: 07/25/22 Loc: ED Accession Number: [id number] ?? Procedure: XR chest 1V Ordering Provider: Deb Paula D.O. PROCEDURE:? XR CHEST 1V ? INDICATIONS:? Shortness of breath ? TECHNIQUE:? One view of the chest was acquired.? ? COMPARISON:? [facility], [place], XR CHEST 1V, 03/30/2021, 17:34. ? FINDINGS:? ? Surgical changes and devices:? None.? ? Lungs and pleura:? Lungs are clear.? No pleural effusions or pneumothorax.? ? Mediastinum:? Mediastinal contours appear normal.? Heart size is normal.? ? Bones and chest wall:? No suspicious bony lesions.? Overlying soft tissues appear unremarkable.? ? IMPRESSION:? No acute cardiopulmonary pathology. ? ? Dictated by: David Silveira M.D. on 07/25/2022 at 10:18 ? ? Approved by: David Silveira M.D. on 07/25/2022 at 10:18?? ECG Data Attestation: I personally reviewed and interpreted this ECG as follows: Prior ECG tracings: not available for review Interpretation: Sinus rhythm, short IA, rate of 73 IA 108 QRS is 68 QTC of 416. No acute ST elevation appreciated. Patient has no priors for comparison. MDM Narrative Medical decision making narrative: This is a 62-year-old female who presents with complaint of shortness of breath for a week and a half sometimes worse with exertion she does have some improvement with her albuterol but has not significantly improved. She is using her albuterol more frequently. Patient does not have any chest pressure, she has not had other other symptoms seem like a cardiac equivalent, patient does have wheezes bilaterally in bases and I suspect she is having flare of her asthma she also still continues to smoke which is likely exacerbates her symptoms. Chest x-ray is negative, labs including CBC, coags, CMP are negative, troponin and BNP are negative. Respiratory panel is positive for entero/rhino. Patient does not have prior EKGs for comparison but my suspicion for cardiac cause is much lower. Patient had DuoNeb and Solu-Medrol here in the department with improvement some very mild scant wheeze on repeat check but improved movement and decreased wheeze. Patient is feeling improved. Discussed viral infection likely causing her symptoms do not suspect cardiac or other causes at this time. Plan for continued oral steroids patient does not use a spacer with her inhaler so use a spacer with teaching from RT and return precautions. Discharge Plan Departure Patient Disposition: Home Clinical Impression: Asthma with exacerbation, Tobacco use, Rhinovirus infection Activity Restrictions/Additional Instructions: Please follow-up with your physician for recheck. Continue your home medications as prescribed. You may use your albuterol inhaler every 4-6 hours as needed for wheezing. Take oral steroids once daily until gone. Prescription sent to Please return for worsening symptoms, increasing chest pain, shortness of breath, lightheadedness or passing out, new swelling in her extremities or other new or concerning changes. Prescriptions: New prednisone 50 mg tablet 50 mg PO DAILY Qty: 5 0RF No Action fluticasone propion-salmeterol [Advair Diskus] 250-50 mcg/dose blister with device 1 puff Inhalation BID citalopram [Celexa] 20 mg tablet 20 mg PO QPM cetirizine [Zyrtec] 10 mg Tablet 10 mg PO QPM albuterol sulfate 90 mcg/actuation Hfa Aerosol Inhaler 1 puff INHALATION Q4-6H PRN (Reason: Shortness Of Breath) [id number] [Multivitamin 50 Plus] Tablet 1 tab PO QPM cholecalciferol (vitamin D3) [Vitamin D3] 5,000 unit Tablet 5,000 unit PO QPM vitamin K2 1 tab PO QPM cyclobenzaprine 10 mg tablet 10 mg PO Q8H PRN (Reason: muscle spasm) Qty: 14 0RF Rx Instructions: 1/2-1 tab up to q8h prn. Do not drive meloxicam [Mobic] 15 mg tablet 15 mg PO DAILY Qty: 20 0RF Rx Instructions: not with other NSAIDS oxycodone-acetaminophen [Percocet] 5-325 mg tablet 1 tab PO Q6H PRN (Reason: acute back and hip pain) Qty: 8 0RF Rx Instructions: do not drive lidocaine [Lidoderm] 5 % adhesive patch,medicated 2 patch TOP DAILY Qty: 30 0RF Rx Instructions: apply 1-3 patches daily and leave on most painful area for 12 hrs prednisone 20 mg tablet 20 mg PO DAILY Qty: 5 0RF Rx Instructions: administer with food or milk doxycycline hyclate 100 mg tablet 100 mg PO BID Qty: 20 0RF albuterol sulfate 90 mcg/actuation aerosol powdr breath activated 2 puff INHALATION Q4H PRN (Reason: shortness of breath or wheezing) Qty: 1 0RF Rx Instructions: administer with spacer Referrals: Kevrin Ghotra MD [Primary Care Provider] - Stand Alone Forms: Patient Portal/API
[2022-07-25 10:21] LABS: Add Manual Diff / Slide Review NO; Basophils Absolute Auto 0 /uL (0-100); Basophils Percent Auto 0.9 % (0-2); Eosinophils Absolute Auto 300 /uL (0-450); Eosinophils Percent Auto 4.5 % (2-4); Hematocrit 41.3 % (36-46); Hemoglobin 14.2 g/dL (12.0-16.0); Lymphocytes Absolute Auto 1700 /uL (1100-4500); Lymphocytes Percent Auto 29.3 % (25-40); Mean Corpuscular HGB Conc 34.3 % (30-36); Mean Corpuscular Volume 99.3 fL (80-100); Monocytes Absolute Auto 500 /uL (0-900); Monocytes Percent Auto 8.1 % (3-14); Neutrophils Absolute Auto 3200 /uL (1500-7000); Neutrophils Percent Auto 57.2 % (50-75); Platelet Count 272 X10^3/uL (150-400); Red Blood Cell Count 4.16 X10^6/uL (4.0-5.2); Red Cell Distribution Width 11.9 % (11.6-14.8); White Blood Cell Count 5.6 X10^3/uL (4.5-11.0)
[2022-07-25 10:28] LABS: Prothrombin Time 10.9 SECONDS (10.1-12.7)
[2022-07-25 10:31] LABS: Lactate (Lactic Acid) 0.8 mmol/L (0.7-2.1)
[2022-07-25 10:33] LABS: Alanine Aminotransferase 19 IU/L (<35); Albumin 4.1 g/dL (3.5-5.0); Albumin Globulin Ratio 1.4 (1.0-2.8); Alkaline Phosphatase 79 U/L (38-126); Aspartate Aminotransferase 24 IU/L (14-36); Bilirubin Total 0.6 mg/dL (0.2-1.3); Blood Urea Nitrogen 17 mg/dL (7-17); Calcium 8.8 mg/dL (8.4-10.2); Carbon Dioxide 30 mmol/L (22-32); Chloride 104 mmol/L (98-107); Estimated Glomerular Filt Rate > 60 mL/min (>60); Glucose 94 mg/dL (80-110); HEMOLYSIS < 15 (0-50); Potassium 4.6 mmol/L (3.4-5.1); Sodium 138 mmol/L (137-145); Total Protein 7.1 g/dL (6.3-8.2)
[2022-07-25 10:44] LABS: NT-proBNP (BNP-Adult 18+) 64 pg/mL (<125); Troponin I < 0.012 ng/mL (0.01-0.034)
[2022-07-25] MEDS: ALBUTEROL/IPRATROPIUM 3 ML AMPUL INH (10:48)
[2022-07-25] MEDS: methylPREDNISolone 125 MG/2 ML VIAL IV (10:59)
[2022-07-25 11:58] LABS: Adenovirus Not Detected (Not Detect); B. parapertussis Not Detected (Not Detecte); Bordetella pertussis Not Detected (Not Detecte); Chlamydophila pneumoniae Not Detected (Not Detect); Coronavirus 229E Not Detected (Not Detect); Coronavirus HKU1 Not Detected (Not Detect); Coronavirus NL 63 Not Detected (Not Detect); Coronavirus OC43 Not Detected (Not Detect); Human Metapneumovirus Not Detected (Not Detect); Human Rhinovirus/Enterovirus Detected (Not Detect); Influenza A Not Detected (Not Detect); Influenza B Not Detected (Not Detect); Mycoplasma pneumoniae Not Detected (Not Detect); Parainfluenza Virus 1 Not Detected (Not Detect); Parainfluenza Virus 2 Not Detected (Not Detect); Parainfluenza Virus 3 Not Detected (Not Detect); Parainfluenza Virus 4 Not Detected (Not Detect); Respiratory Syncytial Virus Not Detected (Not Detect); SARS- CoV-2 Not Detected (Not Detecte)
== END 2022-07-25 12:28 | disposition home or self-care (01) ==
PROVIDERS: Emergency Provider Emergency Medicine; PCP Orthopaedic Surgery
DX: J45.901 Unspecified asthma with (acute) exacerbation (principal); B34.8 Other viral infections of unspecified site; Z72.0 Tobacco use; Z79.899 Other long term (current) drug therapy
CPT/HCPCS: 36415; 71045; 80053; 83605; 83880; 84484; 85025; 85610; 87633; 93005; 94150; 94640; 96374; 99284; J2930

== ENCOUNTER 2022-09-02 09:50 | Emergency (ER) | payer OTHER, SELFPAY ==
[2022-09-02] VITALS (7 sets, daily range): BP systolic 118–132; BP diastolic 68–70; PULSE 74–86; RESP 16–18; TEMP 36.5; O2SAT 90–95; BMI 26.4
--- NOTE | 2022-09-02 10:10 | DI.RAD.S_ITS ---
PROCEDURE: XR CHEST 2V INDICATIONS: wheezing/sob TECHNIQUE: 2 views of the chest were acquired. COMPARISON: [facility], [place], XR CHEST 1V, 07/25/2022, 10:08. FINDINGS: Surgical changes and devices: None. Lungs and pleura: Lungs are clear. No pneumothorax. Slight blunting of the right greater than left costophrenic angles are suggestive of small effusions. Mediastinum: Mediastinal contours are normal. Heart size is normal. Bones and chest wall: No suspicious bony abnormalities. Soft tissues appear unremarkable. IMPRESSION: 1. Tiny effusions. 2. No concerning consolidation. Dictated by: Kervin Espinosa M.D. on 09/02/2022 at 10:21 Approved by: Kervin Espinosa M.D. on 09/02/2022 at 10:23
[2022-09-02] MEDS: ALBUTEROL/IPRATROPIUM 3 ML AMPUL 9 ML INH (10:15)
[2022-09-02 10:50] LABS: Add Manual Diff / Slide Review NO; Basophils Absolute Auto 100 /uL (0-100); Basophils Percent Auto 0.9 % (0-2); Eosinophils Absolute Auto 300 /uL (0-450); Eosinophils Percent Auto 4.9 % (2-4); Hematocrit 42.7 % (36-46); Hemoglobin 14.5 g/dL (12.0-16.0); Lymphocytes Absolute Auto 1800 /uL (1100-4500); Lymphocytes Percent Auto 25.7 % (25-40); Mean Corpuscular Hemoglobin 34.4 PG (26-34); Mean Corpuscular Volume 101.3 fL (80-100); Monocytes Absolute Auto 400 /uL (0-900); Monocytes Percent Auto 6.1 % (3-14); Neutrophils Absolute Auto 4400 /uL (1500-7000); Neutrophils Percent Auto 62.4 % (50-75); Platelet Count 274 X10^3/uL (150-400); Red Blood Cell Count 4.21 X10^6/uL (4.0-5.2); Red Cell Distribution Width 12.5 % (11.6-14.8); White Blood Cell Count 7.1 X10^3/uL (4.5-11.0)
[2022-09-02 10:53] LABS: Prothrombin Time 11.3 SECONDS (10.1-12.7)
[2022-09-02 11:07] LABS: Lactate (Lactic Acid) 0.9 mmol/L (0.7-2.1)
[2022-09-02 11:08] LABS: Alanine Aminotransferase 17 IU/L (<35); Albumin Globulin Ratio 1.3 (1.0-2.8); Alkaline Phosphatase 81 U/L (38-126); Aspartate Aminotransferase 22 IU/L (14-36); BUN Creatinine Ratio 21.8 (6-22); Bilirubin Total 0.7 mg/dL (0.2-1.3); Blood Urea Nitrogen 17 mg/dL (7-17); Calcium 8.8 mg/dL (8.4-10.2); Carbon Dioxide 32 mmol/L (22-32); Chloride 102 mmol/L (98-107); Estimated Glomerular Filt Rate > 60 mL/min (>60); Glucose 92 mg/dL (80-110); HEMOLYSIS < 15 (0-50); Potassium 4.3 mmol/L (3.4-5.1); Sodium 137 mmol/L (137-145)
[2022-09-02 11:20] LABS: NT-proBNP (BNP-Adult 18+) 78 pg/mL (<125); Troponin I < 0.012 ng/mL (0.01-0.034)
[2022-09-02 11:46] LABS: Adenovirus Not Detected (Not Detect); B. parapertussis Not Detected (Not Detecte); Bordetella pertussis Not Detected (Not Detecte); Chlamydophila pneumoniae Not Detected (Not Detect); Coronavirus 229E Not Detected (Not Detect); Coronavirus HKU1 Not Detected (Not Detect); Coronavirus NL 63 Not Detected (Not Detect); Coronavirus OC43 Not Detected (Not Detect); Human Metapneumovirus Not Detected (Not Detect); Human Rhinovirus/Enterovirus Not Detected (Not Detect); Influenza A Not Detected (Not Detect); Influenza B Not Detected (Not Detect); Mycoplasma pneumoniae Not Detected (Not Detect); Parainfluenza Virus 1 Not Detected (Not Detect); Parainfluenza Virus 2 Not Detected (Not Detect); Parainfluenza Virus 3 Not Detected (Not Detect); Parainfluenza Virus 4 Not Detected (Not Detect); Respiratory Syncytial Virus Not Detected (Not Detect); SARS- CoV-2 Not Detected (Not Detecte)
--- NOTE | 2022-09-02 12:28 | ED.SOB ---
HPI - SOB/Dyspnea <Patricia Love PA-C - Last Filed: 09/02/22 17:10> General Chief Complaint: Shortness of Breath/Dyspnea Stated Complaint: difficulty breathing Time Seen by Provider: 09/02/22 11:59 Source: patient Mode of arrival: Ambulatory Limitations: no limitations History of Present Illness HPI Narrative: Patient is a 62-year-old female presenting for evaluation of increasing dyspnea for the last several weeks. She states that she did not have any chest pain nor palpitations nor headache nor fever nor body aches or chills. She says that she is increasingly started to experience some shortness of breath and wheezing. She reports that she had an itching sensation in the roof of her mouth and her nose which she associates with allergies. She states that she took allergy medicine but it did not seem to help. She denies taking any cold medications. She takes an Advair daily once in the morning and once in the evening. She reports that her shortness of breath started to get worse so that by about 3 or 4 she felt she needed to take the Advair but she would wait intake albuterol instead. She states the albuterol did not help as much as the Advair. She came in today because her wheezing and shortness breath worsened. She reports smoking for the last 45 years less than a half a pack a day. She states she is now down to about 3 cigarettes a day. She was here 1 month ago for similar symptoms and was treated with prednisone. She states that she felt much better after the oral prednisone. She denies any recent surgery, coagulation issue or exogenous estrogen. Related Data Home Medications Medication Instructions Recorded Confirmed albuterol sulfate 90 mcg/actuation 1 puff inhalation Q4-6H PRN 05/01/18 05/01/18 aerosol inhaler Shortness Of Breath cetirizine 10 mg tablet (Zyrtec) 10 mg PO QPM 05/01/18 05/01/18 cholecalciferol (vitamin D3) 125 5,000 unit PO QPM 05/01/18 05/01/18 mcg (5,000 unit) tablet (Vitamin D3) citalopram 20 mg tablet 20 mg PO QPM 05/01/18 05/01/18 fluticasone 250 mcg-salmeterol 50 1 puff inhalation BID 01/03/19 01/03/19 mcg/dose blistr powdr for inhalation [id number] 1 tab PO QPM 05/01/18 05/01/18 tablet (Multivitamin 50 Plus tablet) vitamin K2 1 tab PO QPM 05/01/18 05/01/18 Previous Rx's Medication Instructions Recorded cyclobenzaprine 10 mg tablet 10 mg PO Q8H PRN muscle spasm #14 05/01/18 tabs lidocaine 5 % topical patch 2 patch topical DAILY #30 ea 05/01/18 (Lidoderm) meloxicam 15 mg tablet (Mobic) 15 mg PO DAILY pain #20 tabs 05/01/18 oxycodone-acetaminophen 5 mg-325 1 tab PO Q6H PRN acute back and 05/01/18 mg tablet (Percocet) hip pain #8 tabs albuterol sulfate 90 mcg/actuation 2 puff inhalation Q4H PRN 03/30/21 breath activated powder inhaler shortness of breath or wheezing #1 ea doxycycline hyclate 100 mg tablet 100 mg PO BID #20 tabs 03/30/21 prednisone 20 mg tablet 20 mg PO DAILY #5 tabs 03/30/21 prednisone 50 mg tablet 50 mg PO DAILY #5 tabs 07/25/22 prednisone 50 mg tablet 50 mg PO DAILY 5 days #5 tabs 09/02/22 Allergies Allergy/AdvReac Type Severity Reaction Status Date / Time hydrocodone [From VICODIN] Allergy Mild flu like Verified 07/25/22 10:47 symptoms Patient History <Patricia Love PA-C - Last Filed: 09/02/22 17:10> Medical History (Updated 09/02/22 @ 12:51 by Patricia Love PA-C) Anxiety and depression Asthma Seasonal allergies Surgical History History of partial hysterectomy History of tonsillectomy History of tubal ligation Family History Other Family history non-contributory Social History Smoking Status: Current every day smoker additional social history: No EtOH Smoking Status: Current every day smoker tobacco type: cigarettes alcohol intake frequency: 0-2 drinks per day Substance Use Type: marijuana Exam <Patricia Love PA-C - Last Filed: 09/02/22 17:10> Initial Vital Signs Initial Vital Signs: Vital Signs Temperature 97.7 F 09/02/22 10:00 Pulse Rate 86 09/02/22 10:00 Respiratory Rate 18 09/02/22 10:00 Blood Pressure 132/68 09/02/22 10:00 Pulse Oximetry 93 09/02/22 10:00 Oxygen Delivery Method Room Air 09/02/22 10:00 GENERAL: 62 year old patient appears stated age. Well-developed patient, in no acute distress. HEAD: Atraumatic. Normocephalic. EYES: Pupils equal round and reactive. Extraocular motions intact. No scleral icterus. No injection or drainage. ENT: Nose without bleeding, purulent drainage. Throat without erythema, tonsillar hypertrophy or exudate. Airway patent. TMs pearly jason with good COL, Nontender to mastoid, tragus or pinna palpation. NECK: Trachea midline. CARDIOVASCULAR: Regular rate and rhythm without murmurs, gallops, or rubs. RESPIRATORY: Wheezing noted throughout lungs on auscultation EXTREMITIES: No edema or joint tenderness. NEURO: AOx3. SKIN: No rash or erythema of visible areas <Deb Paula DO - Last Filed: 09/02/22 19:21> Initial Vital Signs Initial Vital Signs: Vital Signs Temperature 97.7 F 09/02/22 10:00 Pulse Rate 86 09/02/22 10:00 Respiratory Rate 18 09/02/22 10:00 Blood Pressure 132/68 09/02/22 10:00 Pulse Oximetry 93 09/02/22 10:00 Oxygen Delivery Method Room Air 09/02/22 10:00 Course <Patricia Love PA-C - Last Filed: 09/02/22 17:10> Orders Ordered: ED Orders 09/02/22 10:22 Measure peak expiratory flow ONCE RT Consult Eval and Treat NOW 09/02/22 10:39 EKG-12 Lead Stat 09/02/22 10:40 Complete Blood Count AUTO DIFF Stat Comprehensive Metabolic Panel Stat Lactate (Lactic Acid) Stat NT-proBNP (BNP-Adult 18+) Stat Prothrombin Time INR Stat Troponin I Stat 09/02/22 10:50 Respiratory Panel (Film Array) Stat Discontinued Medications Albuterol (Albuterol Hfa Mdi 60 Puff/8 Gm Inhaler) 6 puff INH NOW ONE Stop: 09/02/22 12:39 Albuterol (Albuterol Hfa Prepack) 1 box [facility] ONE Stop: 09/02/22 13:16 Last Admin: 09/02/22 13:16 Dose: 1 box Documented By: HAILEE Albuterol/Ipratropium (Albuterol/Ipratropium 3 Ml Ampul) 9 ml INH NOW ONE Stop: 09/02/22 10:13 Last Admin: 09/02/22 10:15 Dose: 9 ml Documented By: TO Methylprednisolone (Methylprednisolone 125 Mg/2 Ml Vial) 125 mg IV NOW ONE Stop: 09/02/22 12:41 Last Admin: 09/02/22 13:07 Dose: 125 mg Documented By: SHERIE Vital Signs Vital signs: Vital Signs - 8 hr 09/02/22 11:30 09/02/22 14:00 Pulse Rate 80 85 Respiratory Rate 18 Blood Pressure 123/70 Pulse Oximetry 90 L 94 Oxygen Delivery Method Room Air Room Air <Deb Paula DO - Last Filed: 09/02/22 19:21> Orders Ordered: ED Orders 09/02/22 10:22 Measure peak expiratory flow ONCE RT Consult Eval and Treat NOW 09/02/22 10:39 EKG-12 Lead Stat 09/02/22 10:40 Complete Blood Count AUTO DIFF Stat Comprehensive Metabolic Panel Stat Lactate (Lactic Acid) Stat NT-proBNP (BNP-Adult 18+) Stat Prothrombin Time INR Stat Troponin I Stat 09/02/22 10:50 Respiratory Panel (Film Array) Stat Discontinued Medications Albuterol (Albuterol Hfa Mdi 60 Puff/8 Gm Inhaler) 6 puff INH NOW ONE Stop: 09/02/22 12:39 Albuterol (Albuterol Hfa Prepack) 1 box [facility] ONE Stop: 09/02/22 13:16 Last Admin: 09/02/22 13:16 Dose: 1 box Documented By: HAILEE Albuterol/Ipratropium (Albuterol/Ipratropium 3 Ml Ampul) 9 ml INH NOW ONE Stop: 09/02/22 10:13 Last Admin: 09/02/22 10:15 Dose: 9 ml Documented By: TO Methylprednisolone (Methylprednisolone 125 Mg/2 Ml Vial) 125 mg IV NOW ONE Stop: 09/02/22 12:41 Last Admin: 09/02/22 13:07 Dose: 125 mg Documented By: SHERIE Vital Signs Vital signs: Vital Signs - 8 hr 09/02/22 11:30 09/02/22 14:00 Pulse Rate 80 85 Respiratory Rate 18 Blood Pressure 123/70 Pulse Oximetry 90 L 94 Oxygen Delivery Method Room Air Room Air MDM - SOB/Dyspnea <Patricia Love PA-C - Last Filed: 09/02/22 17:10> Lab Data 09/02/22 10:40 09/02/22 10:40 Labs: Lab Results 09/02/22 09/02/22 09/02/22 Range/Units 10:40 10:40 10:40 WBC 7.1 (4.5-11.0) X10^3/uL RBC 4.21 (4.0-5.2) X10^6/uL Hgb 14.5 (12.0-16.0) g/dL Hct 42.7 (36-46) % MCV 101.3 H (80-100) fL MCH 34.4 H (26-34) PG MCHC 34.0 (30-36) % RDW 12.5 (11.6-14.8) % Plt Count 274 (150-400) X10^3/uL Neut % (Auto) 62.4 (50-75) % Lymph % (Auto) 25.7 (25-40) % Whitley % (Auto) 6.1 (3-14) % Eos % (Auto) 4.9 H (2-4) % Baso % (Auto) 0.9 (0-2) % Neut # (Auto) 4400 (8983-9719) /uL Lymph # (Auto) 1800 (3379-7814) /uL Whitley # (Auto) 400 (0-900) /uL Eos # (Auto) 300 (0-450) /uL Baso # (Auto) 100 (0-100) /uL PT 11.3 (10.1-12.7) SECONDS INR 1.0 (0.9-1.3) Sodium 137 (137-145) mmol/L Potassium 4.3 (3.4-5.1) mmol/L Chloride 102 (98-107) mmol/L Carbon Dioxide 32 (22-32) mmol/L BUN 17 (7-17) mg/dL Creatinine 0.78 (0.52-1.04) mg/dL Estimated GFR > 60 (>60) mL/min BUN/Creatinine Ratio 21.8 (6-22) Glucose 92 (80-110) mg/dL Lactate (0.7-2.1) mmol/L Calcium 8.8 (8.4-10.2) mg/dL Total Bilirubin 0.7 (0.2-1.3) mg/dL AST 22 (14-36) IU/L ALT 17 (<35) IU/L Alkaline Phosphatase 81 (38-126) U/L Troponin I < 0.012 (0.01-0.034) ng/mL NT-Pro-B Natriuret Pep 78 (<125) pg/mL Total Protein 7.0 (6.3-8.2) g/dL Albumin 4.0 (3.5-5.0) g/dL Globulin 3.0 (1.7-4.1) g/dL Albumin/Globulin Ratio 1.3 (1.0-2.8) Chlamy pneumoniae PCR (Not Detect) Adenovirus (PCR) (Not Detect) B. pertussis DNA (PCR) (Not Detecte) B.parapertussis DNA PCR (Not Detecte) Coronavirus OC43 (PCR) (Not Detect) Coronavirus HKU1 (PCR) (Not Detect) Coronavirus 229E (PCR) (Not Detect) SARS-CoV-2 (PCR) (Not Detecte) Coronavirus NL63 (PCR) (Not Detect) Human Metapneumovir PCR (Not Detect) Influenza Type A (PCR) (Not Detect) Influenza Type B (PCR) (Not Detect) M. pneumoniae (PCR) (Not Detect) Parainfluenza 1 (PCR) (Not Detect) Parainfluenza 2 (PCR) (Not Detect) Parainfluenza 3 (PCR) (Not Detect) Parainfluenza 4 (PCR) (Not Detect) RSV (PCR) (Not Detect) Entero/Rhino (PCR) (Not Detect) 09/02/22 09/02/22 Range/Units 10:40 10:50 WBC (4.5-11.0) X10^3/uL RBC (4.0-5.2) X10^6/uL Hgb (12.0-16.0) g/dL Hct (36-46) % MCV (80-100) fL MCH (26-34) PG MCHC (30-36) % RDW (11.6-14.8) % Plt Count (150-400) X10^3/uL Neut % (Auto) (50-75) % Lymph % (Auto) (25-40) % Whitley % (Auto) (3-14) % Eos % (Auto) (2-4) % Baso % (Auto) (0-2) % Neut # (Auto) (8424-5032) /uL Lymph # (Auto) (2172-3853) /uL Whitley # (Auto) (0-900) /uL Eos # (Auto) (0-450) /uL Baso # (Auto) (0-100) /uL PT (10.1-12.7) SECONDS INR (0.9-1.3) Sodium (137-145) mmol/L Potassium (3.4-5.1) mmol/L Chloride (98-107) mmol/L Carbon Dioxide (22-32) mmol/L BUN (7-17) mg/dL Creatinine (0.52-1.04) mg/dL Estimated GFR (>60) mL/min BUN/Creatinine Ratio (6-22) Glucose (80-110) mg/dL Lactate 0.9 (0.7-2.1) mmol/L Calcium (8.4-10.2) mg/dL Total Bilirubin (0.2-1.3) mg/dL AST (14-36) IU/L ALT (<35) IU/L Alkaline Phosphatase (38-126) U/L Troponin I (0.01-0.034) ng/mL NT-Pro-B Natriuret Pep (<125) pg/mL Total Protein (6.3-8.2) g/dL Albumin (3.5-5.0) g/dL Globulin (1.7-4.1) g/dL Albumin/Globulin Ratio (1.0-2.8) Chlamy pneumoniae PCR Not detected (Not Detect) Adenovirus (PCR) Not detected (Not Detect) B. pertussis DNA (PCR) Not detected (Not Detecte) B.parapertussis DNA PCR Not detected (Not Detecte) Coronavirus OC43 (PCR) Not detected (Not Detect) Coronavirus HKU1 (PCR) Not detected (Not Detect) Coronavirus 229E (PCR) Not detected (Not Detect) SARS-CoV-2 (PCR) Not detected (Not Detecte) Coronavirus NL63 (PCR) Not detected (Not Detect) Human Metapneumovir PCR Not detected (Not Detect) Influenza Type A (PCR) Not detected (Not Detect) Influenza Type B (PCR) Not detected (Not Detect) M. pneumoniae (PCR) Not detected (Not Detect) Parainfluenza 1 (PCR) Not detected (Not Detect) Parainfluenza 2 (PCR) Not detected (Not Detect) Parainfluenza 3 (PCR) Not detected (Not Detect) Parainfluenza 4 (PCR) Not detected (Not Detect) RSV (PCR) Not detected (Not Detect) Entero/Rhino (PCR) Not detected (Not Detect) Imaging Data Chest x-ray: Radiologist's Impression: PROCEDURE:? XR CHEST 2V ? INDICATIONS:? wheezing/sob ? TECHNIQUE:? 2 views of the chest were acquired.? ? COMPARISON:? [facility], , XR CHEST 1V, 07/25/2022, 10:08. ? FINDINGS:? ? Surgical changes and devices:? None.? ? Lungs and pleura:? Lungs are clear.? No pneumothorax.? Slight blunting of the right greater than left costophrenic angles are suggestive of small effusions.? ? Mediastinum:? Mediastinal contours are normal.? Heart size is normal.? ? Bones and chest wall:? No suspicious bony abnormalities.? Soft tissues appear unremarkable.? ? IMPRESSION:? 1. Tiny effusions. 2. No concerning consolidation. ? ? Dictated by: Kervin Espinosa M.D. on 09/02/2022 at 10:21 ? ? Approved by: Kervin Espinosa M.D. on 09/02/2022 at 10:23 ? MDM Narrative Medical decision making narrative: CC: This is a new problem, uncertain diagnosis possible systemic effects Complicating co-morbidities: Smoked times 45 years half a pack per day. Data collected from: patient Medical records reviewed: Visit to emergency department in June 2022 with similar episode of exacerbation. Differential considered: Pulmonary embolism, pneumonia, Exam documented above, pertinent findings include: Crackles and wheezing on auscultation to lungs Lab Test results independently reviewed as above. Pertinent CBC, PT, INR, lactate, troponins , CMP showed no abnormal findings. Imaging studies independently reviewed: Chest x-ray showed no abnormal findings Consultations: Reviewed case with Main Treatments: DuoNeb, 125 mg of Solu-Medrol, albuterol treatment with spacer teaching. Re-evaluations: Significant improvement after DuoNeb, however lungs are still wheezy with crackles. O2 sat dips down to 90-93 and increases to 94/95 with deep breathing. Ordered Solu-Medrol in addition to albuterol puff with spacer instruction. She reports improvement after Solu-Medrol and repeat albuterol. Discussion: Patient presented with increased shortness of breath after several weeks of worsening wheezing and coughing. She has chronic history of smoking for the last 45 years half a pack per day. Due to recent symptoms, she is down to 3 cigarettes a day. She was seen in the emergency department in June for an exacerbation and treated successfully with Solu-Medrol and DuoNeb in the ED and outpatient only with prednisone. Her symptoms significantly improved with DuoNeb treatment and IV Solu-Medrol today. She denied any fever, body aches or chills and CBC showed no elevated white count therefore sepsis seems unlikely. Chest x-ray did not show any pneumonia. Her clinical picture does not fit with pulmonary embolism as she denies chest pain has had no recent surgeries nor coagulation issues. Her O2 sat did remain between 93 and 96 today. Her clinical picture fits most closely with an exacerbation of COPD and I recommend that she continue close follow up with her primary care provider to reduce the risk of this recurring. She is been discharge with prescription for 5 day course of prednisone. She is feeling significantly better after Solu-Medrol, DuoNeb and albuterol administration with spacer instruction. Disposition: see below, along with detailed discharge instructions that have been reviewed with patient as well as indications for ED re-evaluation and additional outpatient follow up <Deb Paula, - Last Filed: 09/02/22 19:21> Lab Data Labs: Lab Results 09/02/22 09/02/22 09/02/22 Range/Units 10:40 10:40 10:40 WBC 7.1 (4.5-11.0) X10^3/uL RBC 4.21 (4.0-5.2) X10^6/uL Hgb 14.5 (12.0-16.0) g/dL Hct 42.7 (36-46) % MCV 101.3 H (80-100) fL MCH 34.4 H (26-34) PG MCHC 34.0 (30-36) % RDW 12.5 (11.6-14.8) % Plt Count 274 (150-400) X10^3/uL Neut % (Auto) 62.4 (50-75) % Lymph % (Auto) 25.7 (25-40) % Whitley % (Auto) 6.1 (3-14) % Eos % (Auto) 4.9 H (2-4) % Baso % (Auto) 0.9 (0-2) % Neut # (Auto) 4400 (8500-3191) /uL Lymph # (Auto) 1800 (8651-3887) /uL Whitley # (Auto) 400 (0-900) /uL Eos # (Auto) 300 (0-450) /uL Baso # (Auto) 100 (0-100) /uL PT 11.3 (10.1-12.7) SECONDS INR 1.0 (0.9-1.3) Sodium 137 (137-145) mmol/L Potassium 4.3 (3.4-5.1) mmol/L Chloride 102 (98-107) mmol/L Carbon Dioxide 32 (22-32) mmol/L BUN 17 (7-17) mg/dL Creatinine 0.78 (0.52-1.04) mg/dL Estimated GFR > 60 (>60) mL/min BUN/Creatinine Ratio 21.8 (6-22) Glucose 92 (80-110) mg/dL Lactate (0.7-2.1) mmol/L Calcium 8.8 (8.4-10.2) mg/dL Total Bilirubin 0.7 (0.2-1.3) mg/dL AST 22 (14-36) IU/L ALT 17 (<35) IU/L Alkaline Phosphatase 81 (38-126) U/L Troponin I < 0.012 (0.01-0.034) ng/mL NT-Pro-B Natriuret Pep 78 (<125) pg/mL Total Protein 7.0 (6.3-8.2) g/dL Albumin 4.0 (3.5-5.0) g/dL Globulin 3.0 (1.7-4.1) g/dL Albumin/Globulin Ratio 1.3 (1.0-2.8) Chlamy pneumoniae PCR (Not Detect) Adenovirus (PCR) (Not Detect) B. pertussis DNA (PCR) (Not Detecte) B.parapertussis DNA PCR (Not Detecte) Coronavirus OC43 (PCR) (Not Detect) Coronavirus HKU1 (PCR) (Not Detect) Coronavirus 229E (PCR) (Not Detect) SARS-CoV-2 (PCR) (Not Detecte) Coronavirus NL63 (PCR) (Not Detect) Human Metapneumovir PCR (Not Detect) Influenza Type A (PCR) (Not Detect) Influenza Type B (PCR) (Not Detect) M. pneumoniae (PCR) (Not Detect) Parainfluenza 1 (PCR) (Not Detect) Parainfluenza 2 (PCR) (Not Detect) Parainfluenza 3 (PCR) (Not Detect) Parainfluenza 4 (PCR) (Not Detect) RSV (PCR) (Not Detect) Entero/Rhino (PCR) (Not Detect) 09/02/22 09/02/22 Range/Units 10:40 10:50 WBC (4.5-11.0) X10^3/uL RBC (4.0-5.2) X10^6/uL Hgb (12.0-16.0) g/dL Hct (36-46) % MCV (80-100) fL MCH (26-34) PG MCHC (30-36) % RDW (11.6-14.8) % Plt Count (150-400) X10^3/uL Neut % (Auto) (50-75) % Lymph % (Auto) (25-40) % Whitley % (Auto) (3-14) % Eos % (Auto) (2-4) % Baso % (Auto) (0-2) % Neut # (Auto) (2013-3145) /uL Lymph # (Auto) (2229-0104) /uL Whitley # (Auto) (0-900) /uL Eos # (Auto) (0-450) /uL Baso # (Auto) (0-100) /uL PT (10.1-12.7) SECONDS INR (0.9-1.3) Sodium (137-145) mmol/L Potassium (3.4-5.1) mmol/L Chloride (98-107) mmol/L Carbon Dioxide (22-32) mmol/L BUN (7-17) mg/dL Creatinine (0.52-1.04) mg/dL Estimated GFR (>60) mL/min BUN/Creatinine Ratio (6-22) Glucose (80-110) mg/dL Lactate 0.9 (0.7-2.1) mmol/L Calcium (8.4-10.2) mg/dL Total Bilirubin (0.2-1.3) mg/dL AST (14-36) IU/L ALT (<35) IU/L Alkaline Phosphatase (38-126) U/L Troponin I (0.01-0.034) ng/mL NT-Pro-B Natriuret Pep (<125) pg/mL Total Protein (6.3-8.2) g/dL Albumin (3.5-5.0) g/dL Globulin (1.7-4.1) g/dL Albumin/Globulin Ratio (1.0-2.8) Chlamy pneumoniae PCR Not detected (Not Detect) Adenovirus (PCR) Not detected (Not Detect) B. pertussis DNA (PCR) Not detected (Not Detecte) B.parapertussis DNA PCR Not detected (Not Detecte) Coronavirus OC43 (PCR) Not detected (Not Detect) Coronavirus HKU1 (PCR) Not detected (Not Detect) Coronavirus 229E (PCR) Not detected (Not Detect) SARS-CoV-2 (PCR) Not detected (Not Detecte) Coronavirus NL63 (PCR) Not detected (Not Detect) Human Metapneumovir PCR Not detected (Not Detect) Influenza Type A (PCR) Not detected (Not Detect) Influenza Type B (PCR) Not detected (Not Detect) M. pneumoniae (PCR) Not detected (Not Detect) Parainfluenza 1 (PCR) Not detected (Not Detect) Parainfluenza 2 (PCR) Not detected (Not Detect) Parainfluenza 3 (PCR) Not detected (Not Detect) Parainfluenza 4 (PCR) Not detected (Not Detect) RSV (PCR) Not detected (Not Detect) Entero/Rhino (PCR) Not detected (Not Detect) ECG Data Attestation: I personally reviewed and interpreted this ECG as follows: Prior ECG tracings: available for review Interpretation: Mank: Sinus rhythm, rate of 77 [place] 124 QRS is [address] acute [address] elevation depression noted. Patient has prior from 07/25/[address] changes appreciated. Discharge Plan Departure Patient Disposition: Home Clinical Impression: Acute exacerbation of chronic obstructive airways disease Activity Restrictions/Additional Instructions: You were seen today in the ER for increased shortness of breath increasing over the last several weeks. You were treated today with a DuoNeb and an albuterol with spacer instruction. You received a steroid today in the emergency department as well. I have provided a prescription for prednisone for you to start tomorrow. This should help contiue to help improve your breathing. Please follow up with your primary care provider to discuss adjusted management to daily inhaler regimen since you have had two exacerbations in the last two months. We discussed that you may need a pulmonary function test to evaluate the status of your respiratory ability at this time. I also recommend that you discuss with your primary care provider whether it would be appropriate to start a long-term prescription allergy management such as Singulair to help reduce the occurrence of these exacerbations. Please return to the emergency department if your breathing worsens or you develop other concerning symptoms. Prescriptions: New prednisone 50 mg tablet 50 mg PO DAILY 5 Days Qty: 5 0RF No Action fluticasone propion-salmeterol [Advair Diskus] 250-50 mcg/dose blister with device 1 puff Inhalation BID citalopram [Celexa] 20 mg tablet 20 mg PO QPM cetirizine [Zyrtec] 10 mg Tablet 10 mg PO QPM albuterol sulfate 90 mcg/actuation Hfa Aerosol Inhaler 1 puff INHALATION Q4-6H PRN (Reason: Shortness Of Breath) [id number] [Multivitamin 50 Plus] Tablet 1 tab PO QPM cholecalciferol (vitamin D3) [Vitamin D3] 5,000 unit Tablet 5,000 unit PO QPM vitamin K2 1 tab PO QPM cyclobenzaprine 10 mg tablet 10 mg PO Q8H PRN (Reason: muscle spasm) Qty: 14 0RF Rx Instructions: 1/2-1 tab up to q8h prn. Do not drive meloxicam [Mobic] 15 mg tablet 15 mg PO DAILY Qty: 20 0RF Rx Instructions: not with other NSAIDS oxycodone-acetaminophen [Percocet] 5-325 mg tablet 1 tab PO Q6H PRN (Reason: acute back and hip pain) Qty: 8 0RF Rx Instructions: do not drive lidocaine [Lidoderm] 5 % adhesive patch,medicated 2 patch TOP DAILY Qty: 30 0RF Rx Instructions: apply 1-3 patches daily and leave on most painful area for 12 hrs prednisone 20 mg tablet 20 mg PO DAILY Qty: 5 0RF Rx Instructions: administer with food or milk doxycycline hyclate 100 mg tablet 100 mg PO BID Qty: 20 0RF albuterol sulfate 90 mcg/actuation aerosol powdr breath activated 2 puff INHALATION Q4H PRN (Reason: shortness of breath or wheezing) Qty: 1 0RF Rx Instructions: administer with spacer prednisone 50 mg tablet 50 mg PO DAILY Qty: 5 0RF Referrals: Kervin Ghotra MD [Primary Care Provider] - Stand Alone Forms: Patient Portal/API <Deb Paula DO - Last Filed: 09/02/22 19:21> Cosign ED Attending Cosignature Attestation: Mid-level case was discussed, images, EKG and labs reviewed.
[2022-09-02] MEDS: methylPREDNISolone 125 MG/2 ML VIAL IV (13:07)
[2022-09-02] MEDS: ALBUTEROL HFA PREPACK 1 BOX MISC (13:16)
== END 2022-09-02 14:01 | disposition home or self-care (01) ==
PROVIDERS: Emergency Medicine; Emergency Provider Physician Assistant; PCP Orthopaedic Surgery
DX: J44.1 Chronic obstructive pulmonary disease with (acute) exacerbation (principal); Z20.822 Contact with and (suspected) exposure to COVID-19; Z79.899 Other long term (current) drug therapy
CPT/HCPCS: 71046; 80053; 83605; 83880; 84484; 85025; 85610; 87633; 93005; 94150; 94640; 96374; 99284; A9270; J2930

== ENCOUNTER 2022-10-02 10:38 | Emergency (ER) | payer OTHER, SELFPAY ==
[2022-10-02 10:53] VITALS: BP 124/70; PULSE 81; RESP 16; TEMP 36.8; O2SAT 99; BMI 25.8
[2022-10-02] MEDS: LIDOCAINE PATCH 1 EACH ADH..PATCH TOP (11:07)
[2022-10-02] MEDS: KETOROLAC 30 MG/ML VIAL IM (11:07)
[2022-10-02] MEDS: CYCLOBENZAPRINE 10 MG TABLET PO (11:07)
--- NOTE | 2022-10-02 11:38 | ED.BACK ---
HPI - Back Pain/Injury <Abby Hayes PA-C - Last Filed: 10/02/22 15:44> General Chief Complaint: Back Pain/Injury Stated Complaint: lower back pain Time Seen by Provider: 10/02/22 10:57 Source: patient History of Present Illness HPI Narrative: 62-year-old female presents to the ED with 3 days of lower back pain. Patient states that the pain is radiating down the back of bilateral legs up to the knees. Patient states that the pain started when she bent forward to tie her shoes 3 days ago. No other trauma or injury. Patient also states that she had some dysuria last week for which she took some qerj-jkx-jxgrwyw medicine called Cystex, following which her symptoms resolved. Patient was not seen at a doctor's office or tested for a UTI. Patient assumed it was a UTI based on her symptoms. Patient currently denies fever, chills, urinary hesitancy, urinary frequency, urinary urgency, dysuria, saddle paresthesias, bowel incontinence, urinary incontinence, numbness, tingling, weakness. Related Data Home Medications Medication Instructions Recorded Confirmed albuterol sulfate 90 mcg/actuation 1 puff inhalation Q4-6H PRN 05/01/18 05/01/18 aerosol inhaler Shortness Of Breath cetirizine 10 mg tablet (Zyrtec) 10 mg PO QPM 05/01/18 05/01/18 cholecalciferol (vitamin D3) 125 5,000 unit PO QPM 05/01/18 05/01/18 mcg (5,000 unit) tablet (Vitamin D3) citalopram 20 mg tablet 20 mg PO QPM 05/01/18 05/01/18 fluticasone 250 mcg-salmeterol 50 1 puff inhalation BID 05/01/18 05/01/18 mcg/dose blistr powdr for inhalation kwcuczkarzle-siuwhvrm-dluoze 1 tab PO QPM 05/01/18 05/01/18 tablet (Multivitamin 50 Plus tablet) vitamin K2 1 tab PO QPM 05/01/18 05/01/18 Previous Rx's Medication Instructions Recorded cyclobenzaprine 10 mg tablet 10 mg PO Q8H PRN muscle spasm #14 05/01/18 tabs lidocaine 5 % topical patch 2 patch topical DAILY #30 ea 05/01/18 (Lidoderm) meloxicam 15 mg tablet (Mobic) 15 mg PO DAILY pain #20 tabs 05/01/18 oxycodone-acetaminophen 5 mg-325 1 tab PO Q6H PRN acute back and 05/01/18 mg tablet (Percocet) hip pain #8 tabs albuterol sulfate 90 mcg/actuation 2 puff inhalation Q4H PRN 03/30/21 breath activated powder inhaler shortness of breath or wheezing #1 ea doxycycline hyclate 100 mg tablet 100 mg PO BID #20 tabs 03/30/21 prednisone 20 mg tablet 20 mg PO DAILY #5 tabs 03/30/21 prednisone 50 mg tablet 50 mg PO DAILY #5 tabs 07/25/22 cefpodoxime 200 mg tablet 200 mg PO BID 10 days #20 tabs 10/02/22 tramadol 50 mg tablet 50 mg PO Q8H PRN pain #10 tabs 10/02/22 Allergies Allergy/AdvReac Type Severity Reaction Status Date / Time hydrocodone [From VICODIN] Allergy Mild flu like Verified 10/02/22 10:58 symptoms Review of Systems <Abby Hayes PA-C - Last Filed: 10/02/22 15:44> Review of Systems ROS Unobtainable: All systems reviewed & are unremarkable except as noted in HPI and below Constitutional Constitutional: Denies chills, Denies fatigue, Denies fever(s), Denies frequent falls, Denies lethargy and Denies weakness Eyes Eyes: Denies change in vision, Denies eye discharge, Denies irritation and Denies loss of vision ENT Ears, Nose, Mouth, and Throat: Denies change in voice, Denies dizziness, Denies neck pain, Denies sore throat and Denies throat swelling Cardiovascular Cardiovascular: Denies chest pain, Denies irregular heart rhythm, Denies lightheadedness, Denies palpitations, Denies dyspnea, Denies dyspnea on exertion and Denies orthopnea Respiratory Respiratory: Denies cough, Denies dyspnea, Denies dyspnea on exertion and Denies wheezing Gastrointestinal Gastrointestinal: Denies abdominal pain, Denies change in bowel habits, Denies diarrhea, Denies nausea and Denies vomiting Genitourinary Genitourinary: Denies hematuria, Reports dysuria, Denies flank pain, Denies urinary incontinence and Denies urinary urgency Musculoskeletal Musculoskeletal: Reports back pain, Denies muscle weakness, Denies neck pain, Denies numbness, Reports radiating pain into limb and Denies tingling Integumentary/Breasts Skin/Breast: Denies pruritus, Denies erythema, Denies rash and Denies wounds Neurologic Neurologic: Denies behavioral changes, Denies confusion, Denies dizziness, Denies frequent falls, Denies loss of vision, Denies numbness, Denies tingling and Denies weakness Psychiatric Psychiatric: Denies anxiety, Denies behavioral changes, Denies confusion, Denies depression, Denies homicidal ideation and Denies suicidal ideation Endocrine Endocrine: Denies fatigue, Denies flushing and Denies palpitations Hematologic/Lymphatic Hematologic/Lymphatic: Denies easy bruising Allergic/Immunologic Allergic/Immunologic: Denies urticaria, Denies throat swelling and Denies wheezing Patient History <Abby Hayes PA-C - Last Filed: 10/02/22 15:44> Medical History (Updated 10/02/22 @ 12:04 by Abby Hayes PA-C) Anxiety and depression Asthma Seasonal allergies Surgical History History of partial hysterectomy History of tonsillectomy History of tubal ligation Family History Other Family history non-contributory Social History Smoking Status: Former smoker additional social history: No EtOH Smoking Status: Former smoker tobacco type: cigarettes alcohol intake frequency: 0-2 drinks per day Substance Use Type: marijuana Exam <Abby Hayes PA-C - Last Filed: 10/02/22 15:44> Narrative Exam Narrative: Const General:?cooperative, healthy appearing and comfortable [facility] Head:?normal to inspection Ears:?hearing grossly normal bilaterally Nose:?external nose normal Face and sinus:?normal facial exam and sinuses nontender Mouth:?oral mucosae normal Throat:?posterior oropharynx normal Eyes General:?appearance normal, both eyes and all related structures Neck Neck:?normal visual inspection and no lymphadenopathy noted Resp Effort & Inspection:?normal respiratory effort Auscultation:?clear to auscultation bilaterally Cardio Rate:?regular rate Rhythm:?regular rhythm Neuro General:?patient alert, patient awake and patient oriented x3 Initial Vital Signs Initial Vital Signs: Vital Signs Temperature 98.2 F 10/02/22 10:53 Pulse Rate 81 10/02/22 10:53 Respiratory Rate 16 10/02/22 10:53 Blood Pressure 124/70 10/02/22 10:53 Pulse Oximetry 99 10/02/22 10:53 Oxygen Delivery Method Room Air 10/02/22 10:53 <Paloma Mendoza DO - Last Filed: 10/08/22 09:19> Initial Vital Signs Initial Vital Signs: Vital Signs Temperature 98.2 F 10/02/22 10:53 Pulse Rate 81 10/02/22 10:53 Respiratory Rate 16 10/02/22 10:53 Blood Pressure 124/70 10/02/22 10:53 Pulse Oximetry 99 10/02/22 10:53 Oxygen Delivery Method Room Air 10/02/22 10:53 Course <Abby Hayes PA-C - Last Filed: 10/02/22 15:44> Orders Ordered: Discontinued Medications Cyclobenzaprine HCl (Cyclobenzaprine 10 Mg Tablet) 10 mg PO NOW ONE Stop: 10/02/22 10:59 Last Admin: 10/02/22 11:07 Dose: 10 mg Documented By: AT Ketorolac Tromethamine (Ketorolac 30 Mg/Ml Vial) 30 mg IM NOW ONE Stop: 10/02/22 10:59 Last Admin: 10/02/22 11:07 Dose: 30 mg Documented By: AT Lidocaine (Lidocaine Patch 1 Each Adh..Patch) 1 each TOP NOW ONE Stop: 10/02/22 10:59 Last Admin: 10/02/22 11:07 Dose: 1 each Documented By: AT Vital Signs Vital signs: Vital Signs - 8 hr 10/02/22 10:53 10/02/22 12:01 Temperature 98.2 F Pulse Rate 81 78 Respiratory Rate 16 14 Blood Pressure 124/70 148/62 H Pulse Oximetry 99 96 Oxygen Delivery Method Room Air Room Air <Paloma Mendoza DO - Last Filed: 10/08/22 09:19> Orders Ordered: Discontinued Medications Cyclobenzaprine HCl (Cyclobenzaprine 10 Mg Tablet) 10 mg PO NOW ONE Stop: 10/02/22 10:59 Last Admin: 10/02/22 11:07 Dose: 10 mg Documented By: AT Ketorolac Tromethamine (Ketorolac 30 Mg/Ml Vial) 30 mg IM NOW ONE Stop: 10/02/22 10:59 Last Admin: 10/02/22 11:07 Dose: 30 mg Documented By: AT Lidocaine (Lidocaine Patch 1 Each Adh..Patch) 1 each TOP NOW ONE Stop: 10/02/22 10:59 Last Admin: 10/02/22 11:07 Dose: 1 each Documented By: AT Vital Signs Vital signs: Vital Signs - 8 hr 10/02/22 10:53 10/02/22 12:01 Temperature 98.2 F Pulse Rate 81 78 Respiratory Rate 16 14 Blood Pressure 124/70 148/62 H Pulse Oximetry 99 96 Oxygen Delivery Method Room Air Room Air MDM - Back Pain/Injury <Abby Hayes PA-C - Last Filed: 10/02/22 15:44> Lab Data Labs: Lab Results 10/02/22 Range/Units 11:00 Urine RBC 1-5/hpf (0-5/HPF) Urine WBC 5-10/hpf H (0-5/HPF) Ur Squamous Epith Cells 1-5 /hpf (0-5/HPF) Urine Bacteria Few (2-10) H (None) Urine Dip Bedside Urine Glucose Negative Bedside Urine Bilirubin - Negative Bedside Urine Ketone - Negative Urine Specific [place] 1.020 Bedside Urine Occult Blood - Negative Bedside Urine pH 6.0 Bedside Urine Protein - Negative Bedside Urine Urobilinogen - Negative Bedside Urine Nitrite - Negative Bedside Urine Leukocytes +/- 15 Esterase MDM Narrative Medical decision making narrative: 62-year-old female presents to the ED with 3 days of lower back pain. Patient states that the pain is radiating down the back of bilateral legs up to the knees. Concern for UTI versus pyelonephritis versus musculoskeletal sprain/strain of the back versus other. Will treat back pain with lidocaine patch, ketorolac, Flexeril. UA was obtained which shows a UTI. Will prescribe antibiotics. Patient's symptoms minimally improved with the pain medication. Will prescribe tramadol for the next 2-3 days until patient is able to see her PCP for further follow-up. ED return precautions were discussed with patient. Patient verbalized understanding. Medical records reviewed: Yes <Paloma Mendoza DO - Last Filed: 10/08/22 09:19> Lab Data Labs: Lab Results 10/02/22 Range/Units 11:00 Urine RBC 1-5/hpf (0-5/HPF) Urine WBC 5-10/hpf H (0-5/HPF) Ur Squamous Epith Cells 1-5 /hpf (0-5/HPF) Urine Bacteria Few (2-10) H (None) Urine Dip Bedside Urine Glucose Negative Bedside Urine Bilirubin - Negative Bedside Urine Ketone - Negative Urine Specific [place] 1.020 Bedside Urine Occult Blood - Negative Bedside Urine pH 6.0 Bedside Urine Protein - Negative Bedside Urine Urobilinogen - Negative Bedside Urine Nitrite - Negative Bedside Urine Leukocytes +/- 15 Esterase Discharge Plan Departure Patient Disposition: Home Clinical Impression: UTI (urinary tract infection), Lower back pain Instructions: DI for Urinary Tract Infection (UTI), DI for Back Strain or Sprain Activity Restrictions/Additional Instructions: You were evaluated in the ED today for back pain and urinary symptoms. Your urine did show a urinary tract infection for which you are being prescribed an antibiotic. Please complete the full dose of antibiotics as prescribed. Your back pain is most likely due to a musculoskeletal sprain/strain. You may continue to take Tylenol or ibuprofen or tramadol, lidocaine patches, heat packs for the back pain. Please follow-up with your PCP as soon as possible. You may benefit from physical therapy as well that your PCP can refer you to. Return to the ED if you have numbness, tingling, weakness, trouble urinating. Prescriptions: New cefpodoxime 200 mg tablet 200 mg PO BID 10 Days Qty: 20 0RF Rx Instructions: must administer with a meal/food tramadol 50 mg tablet 50 mg PO Q8H PRN (Reason: pain) Qty: 10 0RF No Action fluticasone propion-salmeterol [Advair Diskus] 250-50 mcg/dose blister with device 1 puff Inhalation BID citalopram [Celexa] 20 mg tablet 20 mg PO QPM cetirizine [Zyrtec] 10 mg Tablet 10 mg PO QPM albuterol sulfate 90 mcg/actuation Hfa Aerosol Inhaler 1 puff INHALATION Q4-6H PRN (Reason: Shortness Of Breath) [id number]-grvhoqcn-vunbot [Multivitamin 50 Plus] Tablet 1 tab PO QPM cholecalciferol (vitamin D3) [Vitamin D3] 5,000 unit Tablet 5,000 unit PO QPM vitamin K2 1 tab PO QPM cyclobenzaprine 10 mg tablet 10 mg PO Q8H PRN (Reason: muscle spasm) Qty: 14 0RF Rx Instructions: 1/2-1 tab up to q8h prn. Do not drive meloxicam [Mobic] 15 mg tablet 15 mg PO DAILY Qty: 20 0RF Rx Instructions: not with other NSAIDS oxycodone-acetaminophen [Percocet] 5-325 mg tablet 1 tab PO Q6H PRN (Reason: acute back and hip pain) Qty: 8 0RF Rx Instructions: do not drive lidocaine [Lidoderm] 5 % adhesive patch,medicated 2 patch TOP DAILY Qty: 30 0RF Rx Instructions: apply 1-3 patches daily and leave on most painful area for 12 hrs prednisone 20 mg tablet 20 mg PO DAILY Qty: 5 0RF Rx Instructions: administer with food or milk doxycycline hyclate 100 mg tablet 100 mg PO BID Qty: 20 0RF albuterol sulfate 90 mcg/actuation aerosol powdr breath activated 2 puff INHALATION Q4H PRN (Reason: shortness of breath or wheezing) Qty: 1 0RF Rx Instructions: administer with spacer prednisone 50 mg tablet 50 mg PO DAILY Qty: 5 0RF Referrals: ProviderNorah [Primary Care Provider] - Stand Alone Forms: Patient Portal/API <Paloma Mendoza DO - Last Filed: 10/08/22 09:19> Cosign ED Attending Ellenature Attestation: I was immediately available in the department for consultation. Documentation has been reviewed.
[2022-10-02 11:50] LABS: Bacteria Urine Few (2-10); RBC Urine 1-5/HPF (0-5/HPF); Squamous Epithelial Cell Urine 1-5 /HPF (0-5/HPF); WBC Urine 5-10/HPF (0-5/HPF)
[2022-10-02 12:01] VITALS: BP 148/62; PULSE 78; RESP 14; O2SAT 96
== END 2022-10-02 12:14 | disposition home or self-care (01) ==
PROVIDERS: Emergency Provider Student in an Organized Health Care Education/Training Program
DX: M54.50 Low back pain, unspecified (principal); N39.0 Urinary tract infection, site not specified
CPT/HCPCS: 81003; 81015; 87077; 87086; 87186; 96372; 99284; J1885

== ENCOUNTER → 2023-02-18 11:29 | Outpatient (CLI) | payer MEDICARE, OTHER, SELFPAY ==
--- NOTE | 2023-02-18 | DI.RAD.S_ITS ---
Bone Density Report Name: ELIUD TOLEDO Age: 63 Sex: Female Ethnicity: White Date of : 1960 Indication: postmenopausal; screening for osteoporosis; Referring Provider: LATA CHAMBERS Study: Bone densitometry was performed. Exam Date: February 18, 2023 Accession number: [id number] Bone Density: Region BMD T-score Z-score Classification AP Spine(L1, L2, L3) 0.901 -1.1 0.7 Osteopenia Femoral Neck (Left) 0.592 -2.3 -0.8 Osteopenia Total Hip (Left) 0.653 -2.4 -1.1 Osteopenia Femoral Neck (Right) 0.622 -2.0 -0.5 Osteopenia Total Hip (Right) 0.689 -2.1 -0.8 Osteopenia Total Hip Mean 0.671 -2.3 -1.0 Osteopenia World Health Organization criteria for BMD impression classify patients as: Normal (T-score at or above -1.0), Osteopenia (T-score between -1.0 and -2.5), or Osteoporosis (T-score at or below -2.5). 10-year Fracture Risk(1): Major Osteoporotic Fracture 13% Hip Fracture 3.5% Reported Risk Factors: [place] (), Neck BMD=0.592, BMI=25.1, smoking (1) FRAX(R) Version 3.08. Fracture probability calculated for an untreated patient. Fracture probability may be lower if the patient has received treatment. Impression: The patient has low bone mass, based on the Left Total Hip T-score. The patient has an estimated ten-year risk of hip fracture of 3.5% and an estimated ten-year risk of major fracture of 13%, based on the WHO FRAX algorithm. The patient has risk factors, including: smoking. Discussion: BONE DENSITY IS LOW AT ONE OR MORE SKELETAL SITES. THE PATIENT'S BMD AND CLINICAL RISK FACTORS CONTRIBUTE TO THIS PATIENT'S INCREASED RISK OF FRACTURE. This patient's lowest T-score is low at one or more skeletal sites. It meets the World Health Organization's (WHO) criteria for low bone mass (T-score between -1.0 and -2.5). The patient's 10-year risk of hip fracture as calculated by FRAX exceeds the threshold where pharmacological therapy is recommended by the National Osteoporosis Foundation (NOF). However, all treatment decisions require clinical judgment and consideration of individual patient factors, including patient preferences, comorbidities, previous drug use, risk factors not captured in the FRAX model (e.g., frailty, falls, vitamin D deficiency, increased bone turnover, interval significant decline in bone density) and possible under or overestimation of fracture risk by FRAX. The patient should follow a healthful lifestyle (good nutrition with adequate calcium and vitamin D, and appropriate weight-bearing exercise). Follow-Up: Consider a repeat BMD and Vertebral Fracture Assessment (VFA) exam in 2 years or sooner if medically necessary, to reassess this patient's status. Reported by: MELVI ALLEN M.D. on 02/18/2023 12:04:00 PM.
--- NOTE | 2023-02-18 | DI.CT.S_ITS ---
PROCEDURE: CT LUNG LOW DOSE SCREENING INDICATIONS: history of nicotine dependence TECHNIQUE: Noncontrast 2.0-2.5 mm thick sections acquired from the pulmonary apices to the posterior costophrenic angles. 7 mm thick axial MIP, and 5 mm coronal and sagittal reformats were then acquired. A low radiation dose technique was utilized. COMPARISON: [facility], CR, XR CHEST 2V, 09/02/2022, 10:09. FINDINGS: Image quality: Diagnostic, given the low radiation dose technique. Lungs and pleura: Emphysematous changes are seen, with hyperexpanded lungs. No focally suspicious pulmonary nodule can be seen. No focal infiltrates are seen. Mediastinum: Heart size is normal. No pericardial effusion. Wpjg-pj-[id number] coronary artery calcification is seen. No mediastinal adenopathy by size criteria. Thoracic aorta and central pulmonary arteries are normal in size. Esophagus is normal in caliber. No hiatal hernia. Bones and chest wall: No suspicious bony lesions. No vertebral body compression fractures. Accentuated thoracic kyphosis is seen. Age-appropriate bony degenerative changes are seen. No axillary or supraclavicular adenopathy by size criteria. Thyroid gland demonstrates no significant noncontrast abnormality. Abdomen: Visualized upper abdomen solid organs and bowel loops appear normal in the absence of contrast. IMPRESSION: No suspicious pulmonary nodule is seen. Hyperexpanded lungs, with emphysematous changes. Additional findings: [id number] coronary artery calcification. LUNG-RADS 1; Recommend annual screening for lung cancer with low dose CT, as long as the patient meets the screening criteria. Dictated by: Raheem Jackson M.D. on 02/18/2023 at 11:53 Approved by: Raheem Jackson M.D. on 02/18/2023 at 11:55
== END ==
PROVIDERS: PCP Internal Medicine; Referring Provider Internal Medicine; Visit Provider Internal Medicine
DX: I25.10 Atherosclerotic heart disease of native coronary artery without angina pectoris (principal); Z87.891 Personal history of nicotine dependence; Z12.2 Encounter for screening for malignant neoplasm of respiratory organs; Z13.820 Encounter for screening for osteoporosis; M85.852 Other specified disorders of bone density and structure, left thigh; N95.8 Other specified menopausal and perimenopausal disorders
CPT/HCPCS: 71271; 77080

== ENCOUNTER 2023-03-04 08:31 | Inpatient (IN) | payer MEDICARE, OTHER, SELFPAY ==
[2023-03-04] VITALS (21 sets, daily range): BP systolic 123–156; BP diastolic 56–71; PULSE 69–107; RESP 16–35; TEMP 36.3–36.8; O2SAT 86–99; BMI 25.0
--- NOTE | 2023-03-04 08:55 | DI.RAD.S_ITS ---
PROCEDURE: XR CHEST 1V INDICATIONS: Shortness of breath TECHNIQUE: One view of the chest was acquired. COMPARISON: [facility], CR, XR CHEST 2V, 09/02/2022, 10:09. FINDINGS: Surgical changes and devices: None. Lungs and pleura: Lungs are clear. No pleural effusions or pneumothorax. Mediastinum: Mediastinal contours appear normal. Heart size is normal. Bones and chest wall: No suspicious bony lesions. Overlying soft tissues appear unremarkable. IMPRESSION: No evidence acute pulmonary process. Dictated by: Dimitri Fuentes M.D. on 03/04/2023 at 9:46 Approved by: Dimitri Fuentes M.D. on 03/04/2023 at 9:46
[2023-03-04 09:16] LABS: Prothrombin Time 11.2 SECONDS (10.1-12.7)
[2023-03-04 09:21] LABS: Lactate (Lactic Acid) 0.8 mmol/L (0.7-2.1)
[2023-03-04 09:22] LABS: Alanine Aminotransferase 17 IU/L (<35); Albumin 4.3 g/dL (3.5-5.0); Albumin Globulin Ratio 1.4 (1.0-2.8); Alkaline Phosphatase 81 U/L (38-126); Aspartate Aminotransferase 22 IU/L (14-36); BUN Creatinine Ratio 19.5 (6-22); Bilirubin Total 0.7 mg/dL (0.2-1.3); Blood Urea Nitrogen 15 mg/dL (7-17); Calcium 9.4 mg/dL (8.4-10.2); Carbon Dioxide 29 mmol/L (22-32); Chloride 105 mmol/L (98-107); Estimated Glomerular Filt Rate > 60 mL/min (>60); Globulin 3.1 g/dL (1.7-4.1); Glucose 91 mg/dL (80-110); HEMOLYSIS < 15 (0-50); Potassium 4.3 mmol/L (3.4-5.1); Sodium 139 mmol/L (137-145); Total Protein 7.4 g/dL (6.3-8.2)
[2023-03-04 09:26] LABS: Add Manual Diff / Slide Review NO; Basophils Absolute Auto 100 /uL (0-100); Basophils Percent Auto 1.1 % (0-2); Eosinophils Absolute Auto 500 /uL (0-450); Eosinophils Percent Auto 5.9 % (2-4); Hemoglobin 15.4 g/dL (12.0-16.0); Lymphocytes Absolute Auto 1500 /uL (1100-4500); Lymphocytes Percent Auto 18.7 % (25-40); Mean Corpuscular HGB Conc 34.1 % (30-36); Mean Corpuscular Hemoglobin 33.8 PG (26-34); Monocytes Absolute Auto 500 /uL (0-900); Monocytes Percent Auto 5.7 % (3-14); Neutrophils Absolute Auto 5700 /uL (1500-7000); Neutrophils Percent Auto 68.6 % (50-75); Platelet Count 322 X10^3/uL (150-400); Red Blood Cell Count 4.54 X10^6/uL (4.0-5.2); Red Cell Distribution Width 11.9 % (11.6-14.8); White Blood Cell Count 8.3 X10^3/uL (4.5-11.0)
[2023-03-04 09:33] LABS: NT-proBNP (BNP-Adult 18+) 108 pg/mL (<125); Troponin I < 0.012 ng/mL (0.01-0.034)
[2023-03-04] MEDS: ALBUTEROL/IPRATROPIUM 3 ML AMPUL 6 ML INH (09:34)
--- NOTE | 2023-03-04 09:34 | PC.NURSE ---
Pt states that she woke up feeling sob and used bother inhalers at home and did not have any relief. Hx of asthma and copd exacerbations. pt normally has o2 sats 99-100% at home and today she was low at 92%. Pt does not show any significant work of breathing, however, she states that she is having a hard time getting a full deep breath. bilateral inspiratory and expiratory wheezing throughout upon auscultation. o2 sat 95% on RA, RR18 and non-labored at this time. pt denies any cp or other sx at this time.
--- NOTE | 2023-03-04 10:11 | ED_ITS ---
HPI - SOB/Dyspnea General Chief Complaint: Shortness of Breath/Dyspnea Stated Complaint: resp. problems/hard time breathing T-5 Time Seen by Provider: 03/04/23 08:40 Source: patient and family Mode of arrival: Ambulatory Limitations: no limitations History of Present Illness HPI Narrative: 63-year-old female with known history of COPD on Advair daily with no prior O2 requirements and anxiety. Patient states for the past 5 days she is had increasing shortness of breath. She states no fevers she denies any cold cough congestive type symptoms. She states she is had a little bit of tightness in her chest but she is felt very tight and wheezy. She gets relief when she uses her albuterol she is been using it about every 6 hours. She uses her Advair twice daily regardless of symptoms. Patient states she is had a mild cough very small amounts of productive sputum that have not been discolored. She denies diaphoresis. No nausea no vomiting, no new swelling in extremities, no issues with bowel movements or urination. Patient states only medications are her Advair, albuterol PRN and Celexa. States had a prior hysterectomy. Patient states Vicodin makes her feel very ill. She quit smoking tobacco a week ago, occasional alcohol, uses THC but does not vape. No other recreational drugs. Primary care is Dr. Javier. She has never seen Pulmonology. Related Data Home Medications Medication Instructions Recorded Confirmed cetirizine 10 mg tablet (Zyrtec) 10 mg PO QPM 05/01/18 03/04/23 cholecalciferol (vitamin D3) 125 5,000 unit PO QPM 05/01/18 03/04/23 mcg (5,000 unit) tablet (Vitamin D3) citalopram 20 mg tablet 30 mg PO QPM 05/01/18 03/04/23 fluticasone 250 mcg-salmeterol 50 1 puff inhalation BID 05/01/18 03/04/23 mcg/dose blistr powdr for inhalation pechripxkmrb-xzxzdqrg-ilaokx 1 tab PO QPM 05/01/18 03/04/23 tablet (Multivitamin 50 Plus tablet) albuterol sulfate 90 mcg/actuation 2 puff inhalation Q6H PRN 03/04/23 03/04/23 breath activated powder inhaler shortness of breath or wheezing ferrous sulfate 325 mg (65 mg 325 mg PO DAILY 03/04/23 03/04/23 iron) tablet fluticasone propionate 50 1 spray intranasal DAILY 03/04/23 03/04/23 mcg/actuation nasal spray,suspension Allergies Allergy/AdvReac Type Severity Reaction Status Date / Time hydrocodone [From VICODIN] Allergy Mild flu like Verified 03/04/23 08:48 symptoms Review of Systems Review of Systems ROS Unobtainable: All systems reviewed & are unremarkable except as noted in HPI and below Patient History Medical History Anxiety and depression Seasonal allergies Asthma Surgical History History of partial hysterectomy History of tonsillectomy History of tubal ligation Family History Other Family history non-contributory Social History household members: spouse Smoking Status: Former smoker alcohol intake: current additional social history: No EtOH Smoking Status: Former smoker tobacco type: cigarettes alcohol intake frequency: a few times a month Substance Use Type: does not use Exam Narrative Exam Narrative: GEN: well nourished, well appearing female, alert and oriented x 3, patient appears to be in moderate distress. HEENT: Atraumatic, pupils are equal round reactive to light, extraocular movements are intact, nares are clear, there is no conjunctival pallor. Throat is clear without any exudates, erythema, tonsillar enlargement or uvular deviation HEART: Regular rate and rhythm without murmur, clicks, rubs. pulses are equal in upper and lower extremities. No edema. LUNGS:Lungs patient has bilateral wheezes at the bases, still slightly diminished, no rales, crackles, chest moves symmetrically, mild tachypnea. No accessory muscle use. Patient was seen after receiving 2 DuoNebs and states she is felt improved. ABD:bowel sounds normal, soft, non-tender, no guarding, rebound, rigidity, no masses noted, no hepatosplenomegaly :No CVA tenderness MSCL: Full range of motion, normal gait NEURO:CN 2-12 intact, sensation normal SKIN: No rash, erythema or other skin changes Initial Vital Signs Initial Vital Signs: Vital Signs Temperature 98.3 F 03/04/23 08:44 Pulse Rate 76 03/04/23 08:44 Respiratory Rate 18 03/04/23 08:44 Blood Pressure 143/71 H 03/04/23 08:44 Pulse Oximetry 92 03/04/23 08:44 Oxygen Delivery Method Room Air 03/04/23 08:44 Course Orders Ordered: ED Orders 03/04/23 12:25 Respiratory Panel (Film Array) Stat Acetaminophen (Acetaminophen 325 Mg Tablet) 650 mg PO Q4H PRN PRN Reason: Fever/Mild Pain (1-3) Last Admin: 03/04/23 16:53 Dose: 650 mg Documented By: TLS Albuterol (Albuterol Hfa Mdi 60 Puff/8 Gm Inhaler) 2 puff INH RTQ4HR PRN PRN Reason: Shortness Of Breath Albuterol/Ipratropium (Albuterol/Ipratropium 3 Ml Ampul) 3 ml INH RTQ4HR PRN PRN Reason: Shortness Of Breath Azithromycin (Azithromycin 250 Mg Tablet) 500 mg PO DAILY TONY Stop: 03/08/23 08:59 Citalopram Hydrobromide (Citalopram 10 Mg Tablet) 30 mg PO DAILY TONY Ferrous Sulfate (Ferrous Sulfate 325 Mg Tablet) 325 mg PO DAILY TONY Fluticasone Propionate (Fluticasone 120 [place]/16 Gm [place].Susp) 1 spray NASAL DAILY TONY Loratadine (Loratadine 10 Mg Tablet) 10 mg PO DAILY TONY Lorazepam (Lorazepam 1 Mg Tablet) 1 mg PO BEDTIME PRN PRN Reason: Sleep Lutein (Vit C/E/Zn/Coppr/Lutein/Zeaxan Capsule) 1 cap PO DAILY TONY Prednisone (Prednisone 20 Mg Tablet) 40 mg PO DAILY TONY Stop: 03/10/23 08:59 Sodium Chloride (Sodium Chloride 0.9% Flush) 10 ml IV BID TONY Vitamin D (Cholecalciferol (Vitamin D3) 5,000 Unit Tablet) 5,000 unit PO QPM TONY Last Admin: 03/04/23 18:30 Dose: 5,000 unit Documented By: TLS Discontinued Medications Albuterol (Albuterol 2.5 Mg/3 Ml Neb (Adult)) 10 mg INH NOW ONE Stop: 03/04/23 10:49 Last Admin: 03/04/23 10:58 Dose: 10 mg Documented By: SHERIE Albuterol/Ipratropium (Albuterol/Ipratropium 3 Ml Ampul) 6 ml INH NOW ONE Stop: 03/04/23 09:32 Last Admin: 03/04/23 09:34 Dose: 6 ml Documented By: TO Methylprednisolone (Methylprednisolone 125 Mg/2 Ml Vial) 125 mg IV NOW ONE Stop: 03/04/23 10:49 Last Admin: 03/04/23 10:58 Dose: 125 mg Documented By: SHERIE Vital Signs Vital signs: Vital Signs - 8 hr 03/04/23 10:58 03/04/23 11:00 03/04/23 11:00 Pulse Rate 74 73 Respiratory Rate 18 22 Blood Pressure 125/69 Pulse Oximetry 97 97 Oxygen Delivery Method Room Air 03/04/23 11:30 03/04/23 11:30 03/04/23 12:00 Pulse Rate 88 107 H Respiratory Rate 35 H Blood Pressure 136/59 L Pulse Oximetry 91 94 Oxygen Delivery Method 03/04/23 12:05 Pulse Rate 104 H Respiratory Rate 24 Blood Pressure Pulse Oximetry 86 L Oxygen Delivery Method MDM - SOB/Dyspnea Lab Data 03/04/23 09:00 03/04/23 09:00 Labs: Lab Results 03/04/23 Range/Units 09:00 WBC 8.3 (4.5-11.0) X10^3/uL RBC 4.54 (4.0-5.2) X10^6/uL Hgb 15.4 (12.0-16.0) g/dL Hct 45.0 (36-46) % MCV 99.0 (80-100) fL MCH 33.8 (26-34) PG MCHC 34.1 (30-36) % RDW 11.9 (11.6-14.8) % Plt Count 322 (150-400) X10^3/uL Neut % (Auto) 68.6 (50-75) % Lymph % (Auto) 18.7 L (25-40) % Ashley % (Auto) 5.7 (3-14) % Eos % (Auto) 5.9 H (2-4) % Baso % (Auto) 1.1 (0-2) % Neut # (Auto) 5700 (4644-3012) /uL Lymph # (Auto) 1500 (3709-7333) /uL Ashley # (Auto) 500 (0-900) /uL Eos # (Auto) 500 H (0-450) /uL Baso # (Auto) 100 (0-100) /uL PT 11.2 (10.1-12.7) SECONDS INR 1.0 (0.9-1.3) Sodium 139 (137-145) mmol/L Potassium 4.3 (3.4-5.1) mmol/L Chloride 105 (98-107) mmol/L Carbon Dioxide 29 (22-32) mmol/L BUN 15 (7-17) mg/dL Creatinine 0.77 (0.52-1.04) mg/dL Estimated GFR > 60 (>60) mL/min BUN/Creatinine Ratio 19.5 (6-22) Glucose 91 (80-110) mg/dL Lactate 0.8 (0.7-2.1) mmol/L Calcium 9.4 (8.4-10.2) mg/dL Total Bilirubin 0.7 (0.2-1.3) mg/dL AST 22 (14-36) IU/L ALT 17 (<35) IU/L Alkaline Phosphatase 81 (38-126) U/L Troponin I < 0.012 (0.01-0.034) ng/mL NT-Pro-B Natriuret Pep 108 (<125) pg/mL Total Protein 7.4 (6.3-8.2) g/dL Albumin 4.3 (3.5-5.0) g/dL Globulin 3.1 (1.7-4.1) g/dL Albumin/Globulin Ratio 1.4 (1.0-2.8) Imaging Data Chest x-ray: Radiologist's Impression: [address] [address] XRay Report Signed Patient: Jinny Felder MR#: [id number] : 1960 Acct:[id number] Age/Sex: 63 / F Date of Service: 03/04/23 Loc: ED Accession Number: [id number] Procedure: XR chest 1V Ordering Provider: Deb Paula D.O. PROCEDURE: XR CHEST 1V INDICATIONS: Shortness of breath TECHNIQUE: One view of the chest was acquired. COMPARISON: [facility], [place], XR CHEST 2V, 09/02/2022, 10:09. FINDINGS: Surgical changes and devices: None. Lungs and pleura: Lungs are clear. No pleural effusions or pneumothorax. Mediastinum: Mediastinal contours appear normal. Heart size is normal. Bones and chest wall: No suspicious bony lesions. Overlying soft tissues appear unremarkable. IMPRESSION: No evidence acute pulmonary process. Dictated by: Dimitri Fuentes M.D. on 03/04/2023 at 9:46 Approved by: Dimitri Fuentes M.D. on 03/04/2023 at 9:46 ECG Data Attestation: I personally reviewed and interpreted this ECG as follows: Interpretation: Rate of 73 CA 124 QRS 64 QTC of 425. Appears to be sinus rhythm. No acute ST elevation depression appears to have some motion artifact lateral leads some be to be depression but not MDM Narrative Medical decision making narrative: 63-year-old female presents with increased shortness of breath he is quite wheezy initially on examination, improved after albuterol treatment. CBC, INR CMP are all appropriate glucose is 91 LFTs, troponin BNP are not elevated. Chest x-ray is negative. Patient deferred any viral respiratory testing. She is not having a lot of significant symptoms of upper respiratory congestion. Suspect COPD flare. Was given steroids and some additional nebs. On recheck patient's wheeze has significantly improved. Occasionally dip down to 89% seated when we ambulate her she dips down to 86/87% on room air. Slight increased work of breathing. Not requiring BiPAP or other interventions but would benefit from inpatient stay with steroids and nebs. Spoke with the hospitalist, Dr. Tavarez who accepts. Would like a respiratory panel which was ordered. We did note she would a CT lung screening on 02/18/2023 which showed COPD changes. Discharge Plan Departure Patient Disposition: Home Clinical Impression: Acute exacerbation of chronic obstructive airways disease
[2023-03-04] MEDS: methylPREDNISolone 125 MG/2 ML VIAL IV (10:58)
[2023-03-04] MEDS: ALBUTEROL 2.5 MG/3 ML NEB (ADULT) 10 MG INH (10:58)
[2023-03-04 13:23] LABS: Adenovirus Not Detected (Not Detect); B. parapertussis Not Detected (Not Detecte); Bordetella pertussis Not Detected (Not Detect); Chlamydophila pneumoniae Not Detected (Not Detect); Coronavirus 229E Not Detected (Not Detect); Coronavirus HKU1 Not Detected (Not Detect); Coronavirus NL 63 Not Detected (Not Detect); Coronavirus OC43 Not Detected (Not Detect); Human Metapneumovirus Not Detected (Not Detect); Human Rhinovirus/Enterovirus Not Detected (Not Detect); Influenza A Not Detected (Not Detect); Influenza B Not Detected (Not Detect); Mycoplasma pneumoniae Not Detected (Not Detect); Parainfluenza Virus 1 Not Detected (Not Detect); Parainfluenza Virus 2 Not Detected (Not Detect); Parainfluenza Virus 3 Not Detected (Not Detect); Parainfluenza Virus 4 Not Detected (Not Detect); Respiratory Syncytial Virus Not Detected (Not Detect); SARS- CoV-2 Not Detected (Not Detecte)
--- NOTE | 2023-03-04 16:01 | P.HP_ITS ---
History of Present Illness History of Present Illness Chief complaint: resp. problems/hard time breathing T-5 Narrative: 63-year-old female with known history of COPD on Advair daily with no prior O2 requirements and anxiety. Patient states for the past 5 days she is had increasing shortness of breath. She states no fevers she denies any cold cough congestive type symptoms. She states she is had a little bit of tightness in her chest but she is felt very tight and wheezy. She gets relief when she uses her albuterol she is been using it about every 6 hours. She uses her Advair twice daily regardless of symptoms. Patient states she is had a mild cough very small amounts of productive sputum that have not been discolored. She denies diaphoresis. No nausea no vomiting, no new swelling in extremities, no issues with bowel movements or urination. Patient states only medications are her Advair, albuterol PRN and Celexa. States had a prior hysterectomy. Patient states Vicodin makes her feel very ill. She quit smoking tobacco a week ago, occasional alcohol, uses THC but does not vape. No other recreational drugs. Primary care is Dr. Javier. She has never seen Pulmonology [facility] Medical History Anxiety and depression Seasonal allergies Asthma Surgical History History of partial hysterectomy History of tonsillectomy History of tubal ligation Family History Other Family history non-contributory Social History household members: spouse Smoking Status: Former smoker alcohol intake: current additional social history: No EtOH Meds Home Medications and Allergies Home Medications Medication Instructions Recorded Confirmed Type cetirizine 10 mg tablet (Zyrtec) 10 mg PO QPM 05/01/18 03/04/23 History cholecalciferol (vitamin D3) 125 5,000 unit PO QPM 05/01/18 03/04/23 History mcg (5,000 unit) tablet (Vitamin D3) citalopram 20 mg tablet 30 mg PO QPM 05/01/18 03/04/23 History fluticasone 250 mcg-salmeterol 50 1 puff inhalation BID 05/01/18 03/04/23 History mcg/dose blistr powdr for inhalation qtoalsvegfdp-zovxmjle-qwvcle 1 tab PO QPM 05/01/18 03/04/23 History tablet (Multivitamin 50 Plus tablet) albuterol sulfate 90 mcg/actuation 2 puff inhalation Q6H PRN 03/04/23 03/04/23 History breath activated powder inhaler shortness of breath or wheezing ferrous sulfate 325 mg (65 mg 325 mg PO DAILY 03/04/23 03/04/23 History iron) tablet fluticasone propionate 50 1 spray intranasal DAILY 03/04/23 03/04/23 History mcg/actuation nasal spray,suspension Allergies Allergy/AdvReac Type Severity Reaction Status Date / Time hydrocodone [From VICODIN] Allergy Mild flu like Verified 03/04/23 08:48 symptoms Review of Systems Review of Systems Narrative: 14 system review completed and pertinent findings in the HPI. Exam Vital Signs (past 8 hours): - 03/04/23 08:44 03/04/23 08:53 03/04/23 09:00 Temperature 98.3 F Pulse Rate 76 72 75 Respiratory Rate 18 31 H Blood Pressure 143/71 H Pulse Oximetry 92 92 91 Oxygen Delivery Method Room Air Oxygen Flow Rate 03/04/23 09:21 03/04/23 09:21 03/04/23 09:30 Temperature Pulse Rate 70 72 Respiratory Rate 26 H 24 Blood Pressure 156/65 H Pulse Oximetry 92 89 L Oxygen Delivery Method Oxygen Flow Rate 03/04/23 09:31 03/04/23 09:31 03/04/23 09:34 Temperature Pulse Rate 73 73 Respiratory Rate 22 17 Blood Pressure 130/63 Pulse Oximetry 95 94 Oxygen Delivery Method Room Air Oxygen Flow Rate 03/04/23 10:00 03/04/23 10:00 03/04/23 10:30 Temperature Pulse Rate 69 Respiratory Rate 25 H Blood Pressure 148/70 H 146/68 H Pulse Oximetry 96 Oxygen Delivery Method Oxygen Flow Rate 03/04/23 10:30 03/04/23 10:58 03/04/23 11:00 Temperature Pulse Rate 71 74 Respiratory Rate 35 H 18 Blood Pressure 125/69 Pulse Oximetry 94 97 Oxygen Delivery Method Room Air Oxygen Flow Rate 03/04/23 11:00 03/04/23 11:30 03/04/23 11:30 Temperature Pulse Rate 73 88 Respiratory Rate 22 35 H Blood Pressure 136/59 L Pulse Oximetry 97 91 Oxygen Delivery Method Oxygen Flow Rate 03/04/23 12:00 03/04/23 12:05 03/04/23 12:30 Temperature Pulse Rate 107 H 104 H 103 H Respiratory Rate 24 Blood Pressure Pulse Oximetry 94 86 L Oxygen Delivery Method Oxygen Flow Rate 03/04/23 12:38 03/04/23 13:00 03/04/23 13:30 Temperature Pulse Rate 97 H 98 H Respiratory Rate Blood Pressure Pulse Oximetry 90 L 86 L Oxygen Delivery Method Nasal Cannula Oxygen Flow Rate 03/04/23 13:33 03/04/23 13:33 03/04/23 15:32 Temperature Pulse Rate 100 H Respiratory Rate 18 Blood Pressure 138/66 Pulse Oximetry 91 90 L Oxygen Delivery Method Nasal Cannula Oxygen Flow Rate 2 1.5 Oxygen Delivery Method Nasal Cannula Oxygen Flow Rate 1.5 Narrative Exam Narrative: GEN: well nourished, well appearing female, alert and oriented x 3, patient appears to be in moderate distress. HEENT: Atraumatic, pupils are equal round reactive to light, extraocular movements are intact, nares are clear, there is no conjunctival pallor. Throat is clear without any exudates, erythema, tonsillar enlargement or uvular deviation HEART: Regular rate and rhythm without murmur, clicks, rubs. pulses are equal in upper and lower extremities. No edema. LUNGS:Lungs patient has bilateral wheezes at the bases, still slightly diminished, no rales, crackles, chest moves symmetrically, mild tachypnea. No accessory muscle use. Patient was seen after receiving 2 DuoNebs and states she is felt improved. ABD:bowel sounds normal, soft, non-tender, no guarding, rebound, rigidity, no masses noted, no hepatosplenomegaly :No CVA tenderness MSCL: Full range of motion, normal gait NEURO:CN 2-12 intact, sensation normal SKIN: No rash, erythema or other skin changes Objective Labs 03/04/23 09:00 03/04/23 09:00 Labs: Laboratory Results - last 24 hr 03/04/23 03/04/23 09:00 12:25 WBC 8.3 RBC 4.54 Hgb 15.4 Hct 45.0 MCV 99.0 MCH 33.8 MCHC 34.1 RDW 11.9 Plt Count 322 Neut % (Auto) 68.6 Lymph % (Auto) 18.7 L [place] % (Auto) 5.7 Eos % (Auto) 5.9 H Baso % (Auto) 1.1 Neut # (Auto) 5700 Lymph # (Auto) 1500 [place] # (Auto) 500 Eos # (Auto) 500 H Baso # (Auto) 100 PT 11.2 INR 1.0 Sodium 139 Potassium 4.3 Chloride 105 Carbon Dioxide 29 BUN 15 Creatinine 0.77 Estimated GFR > 60 BUN/Creatinine Ratio 19.5 Glucose 91 Lactate 0.8 Calcium 9.4 Total Bilirubin 0.7 AST 22 ALT 17 Alkaline Phosphatase 81 Troponin I < 0.012 NT-Pro-B Natriuret Pep 108 Total Protein 7.4 Albumin 4.3 Globulin 3.1 Albumin/Globulin Ratio 1.4 Chlamy pneumoniae PCR Not detected Adenovirus (PCR) Not detected B.parapertussis DNA PCR Not detected Coronavirus OC43 (PCR) Not detected Coronavirus HKU1 (PCR) Not detected Coronavirus 229E (PCR) Not detected SARS-CoV-2 (PCR) Not detected Coronavirus NL63 (PCR) Not detected Human Metapneumovir PCR Not detected Influenza Type A (PCR) Not detected Influenza Type B (PCR) Not detected M. pneumoniae (PCR) Not detected Parainfluenza 1 (PCR) Not detected Parainfluenza 2 (PCR) Not detected Parainfluenza 3 (PCR) Not detected Parainfluenza 4 (PCR) Not detected RSV (PCR) Not detected Entero/Rhino (PCR) Not detected Assessment & Plan Assessment & Plan narrative: #asthma/COPD with exacerbation POA, acute -methyprednisolone given in the ER, will treat with prednisone 40 daily for 5 days - cover with antibiotics azithromycin - albuterol and ipratropium inh/neb prn #anxiety/depression -continue citalopram #seasonal allergies - continue cetirizine and fluticasone # smoker- former CODE: Full DVT: enoxaparin 40mg daily Surrogate decision maker: Edmond Felder Time Spent With Patient Time with patient: 70 minutes or more, with 50% spent counseling/coordinating Quality VTE Deep Vein Thrombosis/Pulmonary Embolism Present on Admission: No MIPS - Admit I confirm the patient?s Advance Care Plan is present, Code status is documented, Surrogate decision maker is in patient?s record [If Yes, STOP here]: Yes [facility] - Meds 'Current medications' to include all prescriptions, vjnt-vxl-yheihhr products, herbals, cannabis/cannabidiol products, and vitamin/mineral/dietary (nutritional) supplements. I have utilized all available resources to obtain, update, or review the patient?s current medications. [If Yes, STOP here]: Yes
[2023-03-04] MEDS: ACETAMINOPHEN 325 MG TABLET 650 MG PO (16:53)
[2023-03-04] MEDS: CHOLECALCIFEROL (VITAMIN D3) 5,000 UNIT TABLET 5000 UNIT PO (18:30)
[2023-03-04] MEDS: ALBUTEROL/IPRATROPIUM 3 ML AMPUL INH (19:51)
[2023-03-04] MEDS: SODIUM CHLORIDE 0.9% FLUSH 10 ML IV (21:30)
[2023-03-04] MEDS: LORazepam 1 MG TABLET PO (21:34)
[2023-03-05 05:54] VITALS: PULSE 76; O2SAT 94
[2023-03-05 06:19] LABS: Add Manual Diff / Slide Review NO; Basophils Absolute Auto 200 /uL (0-100); Basophils Percent Auto 1.2 % (0-2); Eosinophils Absolute Auto 0 /uL (0-450); Eosinophils Percent Auto 0.1 % (2-4); Hematocrit 39.6 % (36-46); Hemoglobin 13.5 g/dL (12.0-16.0); Lymphocytes Absolute Auto 1400 /uL (1100-4500); Lymphocytes Percent Auto 10.4 % (25-40); Mean Corpuscular Hemoglobin 33.7 PG (26-34); Mean Corpuscular Volume 99.2 fL (80-100); Monocytes Absolute Auto 1000 /uL (0-900); Monocytes Percent Auto 7.2 % (3-14); Neutrophils Absolute Auto 11100 /uL (1500-7000); Neutrophils Percent Auto 81.1 % (50-75); Platelet Count 266 X10^3/uL (150-400); Red Blood Cell Count 3.99 X10^6/uL (4.0-5.2); Red Cell Distribution Width 11.5 % (11.6-14.8); White Blood Cell Count 13.7 X10^3/uL (4.5-11.0)
[2023-03-05 06:33] LABS: Alanine Aminotransferase 16 IU/L (<35); Albumin Globulin Ratio 1.4 (1.0-2.8); Alkaline Phosphatase 67 U/L (38-126); Aspartate Aminotransferase 20 IU/L (14-36); BUN Creatinine Ratio 28.2 (6-22); Bilirubin Total 0.7 mg/dL (0.2-1.3); Blood Urea Nitrogen 22 mg/dL (7-17); Calcium 9.8 mg/dL (8.4-10.2); Carbon Dioxide 28 mmol/L (22-32); Chloride 103 mmol/L (98-107); Estimated Glomerular Filt Rate > 60 mL/min (>60); Globulin 2.8 g/dL (1.7-4.1); Glucose 113 mg/dL (80-110); HEMOLYSIS 20 (0-50); Potassium 4.2 mmol/L (3.4-5.1); Sodium 137 mmol/L (137-145); Total Protein 6.8 g/dL (6.3-8.2)
[2023-03-05 07:00] VITALS: BP 134/90; PULSE 72; RESP 18; O2SAT 97
[2023-03-05] MEDS: ALBUTEROL/IPRATROPIUM 3 ML AMPUL INH ×2 (07:05→14:02)
[2023-03-05 07:06] VITALS: O2SAT 94
[2023-03-05] MEDS: VIT C/E/ZN/COPPR/LUTEIN/ZEAXAN CAPSULE 1 CAP PO (09:22)
[2023-03-05] MEDS: AZITHROMYCIN 250 MG TABLET 500 MG PO (09:22)
[2023-03-05] MEDS: predniSONE 20 MG TABLET 40 MG PO (09:22)
[2023-03-05] MEDS: CITALOPRAM 10 MG TABLET 30 MG PO (09:22)
[2023-03-05] MEDS: LORATADINE 10 MG TABLET PO (09:22)
[2023-03-05] MEDS: SODIUM CHLORIDE 0.9% FLUSH 10 ML IV ×2 (09:23→21:25)
[2023-03-05 14:02] VITALS: PULSE 84; RESP 16; O2SAT 92
--- NOTE | 2023-03-05 16:08 | CM.DANOTE ---
Brief DCP Assessment Note Patient is a 63yo F here for respiratory problems. PCP Dr. Yaya Miller Medicare and [facility] reviewed EMR. Per provider in rounds, patient will likely be here for a few days. on a couple of ltrs of O2 at the moment and normally is not at home. Per chart review, lives at home with spouse Edmond in [place]. Unable to meet with patient at this time due to triaging needs. No needs identified via chart review. Likely home with spouse when medically stable. Plan: CM team will continue to follow as needed. Likely home with spouse when medically stable, transport with family in [place]. ADEN Monet Discharge Planning/Care Management CM Discharge Assessment Start: 03/05/23 15:59 Freq: Status: Active Protocol: Document 03/05/23 15:59 (Rec: 03/05/23 16:08 [id number]) Discharge Planning Assessment Assigned Chartered Financial Analyst ADEN Pandey DPOA/Assigned Designee Name Edmond (spouse) Contact Information [phone] Advance Directives? No History Provided By Medical Record Prior Living Arrangements House Household Members spouse Discharge Plan Home Transportation Arrangement likely family in [place] Whiteboard Updated in Patient Room with No name and ext. # of Chartered Financial Analyst Review Status In Process Next Review Type Continued Stay Review
[2023-03-05] MEDS: ACETAMINOPHEN 325 MG TABLET 650 MG PO (16:11)
[2023-03-05] MEDS: CHOLECALCIFEROL (VITAMIN D3) 5,000 UNIT TABLET 5000 UNIT PO (16:12)
--- NOTE | 2023-03-05 16:38 | P.PN_ITS ---
Subjective Subjective Interval history: 63 F admitted with asthma/COPD exacerbation with hypoxia, she still feels short of breath today with exertion. Overall improved today. Did desat with ambulation today to 84%, quickly recovered to 90s with sitting. Exam Vital Signs (past 8 hours): - 03/05/23 09:28 03/05/23 14:02 Pulse Rate 84 Respiratory Rate 16 Pulse Oximetry 92 Oxygen Delivery Method Room Air Room Air Oxygen Flow Rate 0 Fraction of Inspired Oxygen 21 Fraction of Inspired Oxygen 21 SaO2/FiO2 Ratio 438 Oxygen Delivery Method Room Air Oxygen Flow Rate 0 Narrative Exam Narrative: Gen: No acute distress, ambulated with minimal dyspnea, O2 84% after ambulation Pulm: expiratory wheezing bilaterally, no rhonchi or rales CV: RRR no m/r/g Ext: no edema Objective Labs 03/05/23 05:48 03/05/23 05:48 Labs: Laboratory Results - last 24 hr 03/05/23 05:48 WBC 13.7 H D RBC 3.99 L Hgb 13.5 Hct 39.6 MCV 99.2 MCH 33.7 MCHC 34.0 RDW 11.5 L Plt Count 266 Neut % (Auto) 81.1 H Lymph % (Auto) 10.4 L [place] % (Auto) 7.2 Eos % (Auto) 0.1 L Baso % (Auto) 1.2 Neut # (Auto) 34385 H Lymph # (Auto) 1400 [place] # (Auto) 1000 H Eos # (Auto) 0 Baso # (Auto) 200 H Sodium 137 Potassium 4.2 Chloride 103 Carbon Dioxide 28 BUN 22 H Creatinine 0.78 Estimated GFR > 60 BUN/Creatinine Ratio 28.2 H Glucose 113 H Calcium 9.8 Total Bilirubin 0.7 AST 20 ALT 16 Alkaline Phosphatase 67 C-Reactive Protein 1.0 Total Protein 6.8 Albumin 4.0 Globulin 2.8 Albumin/Globulin Ratio 1.4 PFSH Medical History Anxiety and depression Seasonal allergies Asthma Surgical History History of partial hysterectomy History of tonsillectomy History of tubal ligation Family History Other Family history non-contributory Social History household members: spouse Smoking Status: Former smoker alcohol intake: current additional social history: No EtOH Assessment & Plan Assessment & Plan narrative: #asthma/COPD with exacerbation and acute respiratory failure with hypoxia POA, acute -methyprednisolone given in the ER, continue treatments with prednisone 40 daily for 5 days - continue antibiotics azithromycin for antiinflammatory effect. Leukocytosis today likely due to steroids not bacterial infection. - continue albuterol and ipratropium inh/neb prn - continues to improve, now only hypoxic with exertion. Hopeful can wean from supplemental o2 and discharge home tomorrow. #anxiety/depression -continue citalopram #seasonal allergies - continue cetirizine and fluticasone # smoker- former CODE: Full DVT: enoxaparin 40mg daily Surrogate decision maker: Edmond Felder Dispo: hopeful discharge home tomorrow once no longer hypoxic with exertion, may need a few more days however. Quality VTE Deep Vein Thrombosis/Pulmonary Embolism Present on Admission: No
[2023-03-05 21:16] VITALS: BP 104/66; PULSE 73; RESP 18; TEMP 36.4; O2SAT 92
[2023-03-06 03:45] VITALS: O2SAT 90
[2023-03-06] MEDS: ALBUTEROL/IPRATROPIUM 3 ML AMPUL INH ×2 (03:45→10:37)
[2023-03-06 03:47] VITALS: O2SAT 93
[2023-03-06 03:55] VITALS: O2SAT 96
[2023-03-06 09:16] VITALS: BP 110/70; PULSE 80; RESP 19; TEMP 36.2; O2SAT 91
[2023-03-06] MEDS: CITALOPRAM 10 MG TABLET 30 MG PO (09:28)
[2023-03-06] MEDS: FLUTICASONE 120 SPRAY/16 GM SPRAY.SUSP NASAL (09:28)
[2023-03-06] MEDS: VIT C/E/ZN/COPPR/LUTEIN/ZEAXAN CAPSULE 1 CAP PO (09:28)
[2023-03-06] MEDS: predniSONE 20 MG TABLET 40 MG PO (09:29)
[2023-03-06] MEDS: AZITHROMYCIN 250 MG TABLET 500 MG PO (09:29)
[2023-03-06] MEDS: SODIUM CHLORIDE 0.9% FLUSH 10 ML IV (09:29)
[2023-03-06] MEDS: LORATADINE 10 MG TABLET PO (09:29)
[2023-03-06 10:37] VITALS: PULSE 66; RESP 14; O2SAT 94
--- NOTE | 2023-03-06 14:59 | CM.DPC ---
DCP Cont: Per MD, pt making some improvements and will try to wean off oxygen today and might be stable for d/c later today vs tomorrow pending progress. Per RT, pt was on 2LO2 this morning and now room air trial to see if pt can tolerate during exertion. MD does not anticipate any needs at discharge. No bedside discussion today due to triage needs and currently no identified barriers to discharge. Plan: SW to follow to confirm pt able to transition to room air for plan of discharge home with spouse and any further identified discharge planning needs. ADEN Boyle
--- NOTE | 2023-03-06 15:18 | PM.DS.1 ---
History of Present Illness History of Present Illness Date Patient Seen: 03/06/23 Time Patient Seen: 15:18 Chief complaint: resp. problems/hard time breathing T-5 Narrative: 63-year-old female with known history of COPD on Advair daily with no prior O2 requirements and anxiety. Patient states for the past 5 days she is had increasing shortness of breath. She states no fevers she denies any cold cough congestive type symptoms. She states she is had a little bit of tightness in her chest but she is felt very tight and wheezy. She gets relief when she uses her albuterol she is been using it about every 6 hours. She uses her Advair twice daily regardless of symptoms. Patient states she is had a mild cough very small amounts of productive sputum that have not been discolored. She denies diaphoresis. No nausea no vomiting, no new swelling in extremities, no issues with bowel movements or urination. Patient states only medications are her Advair, albuterol PRN and Celexa. States had a prior hysterectomy. Patient states Vicodin makes her feel very ill. She quit smoking tobacco a week ago, occasional alcohol, uses THC but does not vape. No other recreational drugs. Primary care is Dr. Javier. She has never seen Pulmonology Discharge Providers Provider Date of admission: 03/04/23 12:19 Discharge Date: 03/06/23 Primary care physician: Maximiliano Javier MD Discharge provider: Krystian Valdes DO Summary Hospital Course Discharge Diagnosis: #asthma/COPD with exacerbation and acute respiratory failure with hypoxia POA, acute #anxiety/depression #seasonal allergies # smoker- former Hospital Course: This is a 63 year old female admitted with acute respiratory failure with hypoxia, due to asthma/COPD exacerbation. She continued to improve slowly, with continued hypoxia with exertion but on the day of discharge she was no longer requiring supplemental oxygen with exertion with O2 saturations >90 on room air. She will complete 5 days of prednisone and azithromycin at home after discharge. She was also prescribed nebulizer with albuterol for home use. Outpatient follow up with her primary care provider is recommended to review hospitalization in the next few weeks. No other medication changes were recommended at discharge. Time Spent with Patient Time spent: Greater than 30 minutes Exam Vital Signs (past 8 hours): - 03/06/23 09:16 03/06/23 10:37 Temperature 97.2 F L Pulse Rate 80 66 Respiratory Rate 19 14 Blood Pressure 110/70 Pulse Oximetry 91 94 Oxygen Delivery Method Room Air Oxygen Flow Rate 0 Fraction of Inspired Oxygen 21 SaO2/FiO2 Ratio 438 Oxygen Delivery Method Room Air Oxygen Flow Rate 0 Narrative Exam Narrative: Gen: No acute distress, ambulated with minimal dyspnea, O2 84% after ambulation Pulm: expiratory wheezing bilaterally, no rhonchi or rales CV: RRR no m/r/g Ext: no edema Objective Labs 03/05/23 05:48 03/05/23 05:48 [facility] Medical History Anxiety and depression Seasonal allergies Asthma Surgical History History of partial hysterectomy History of tonsillectomy History of tubal ligation Family History Other Family history non-contributory Social History household members: spouse Smoking Status: Former smoker alcohol intake: current additional social history: No EtOH Discharge Plan Discharge Plan Patient Disposition: Home Provider Discharge Comment: You were admitted to the hospital with an asthma exacerbation requiring oxygen. This improved with an antibiotic for inflammation and steroids. You should finish the course of steroids and antibiotics at home, and a nebulizer was sent to the pharmacy for additional treatments if you feel short of breath. Discharge orders & Medications Prescriptions: New (DME) nebulizer and compressor Device See Rx Instructions .Route Qty: 1 0RF Rx Instructions: One nebulizer and compressor albuterol sulfate 1.25 mg/3 mL solution for nebulization 1.25 mg inhalation Q4-6H PRN (Reason: shortness of breath or wheezing) 30 Days Qty: 75 0RF prednisone 20 mg tablet 40 mg PO DAILY 3 Days Qty: 6 0RF azithromycin 250 mg tablet 250 mg PO DAILY 3 Days Qty: 3 0RF Continued fluticasone propion-salmeterol 250-50 mcg/dose blister with device 1 puff Inhalation BID citalopram 20 mg tablet 30 mg PO QPM Rx Instructions: 1.5 tabs cetirizine [Zyrtec] 10 mg Tablet 10 mg PO QPM Multivitamin 50 Plus Tablet 1 tab PO QPM cholecalciferol (vitamin D3) [Vitamin D3] 5,000 unit Tablet 5,000 unit PO QPM ferrous sulfate 325 mg (65 mg iron) Tablet 325 mg PO DAILY fluticasone propionate 50 mcg/actuation [place],Suspension 1 spray INTRANASAL DAILY Rx Instructions: administer into each nostril albuterol sulfate 90 mcg/actuation aerosol powdr breath activated 2 puff INHALATION Q6H PRN (Reason: shortness of breath or wheezing) Rx Instructions: administer with spacer Follow up/Referrals: Maximiliano Javier MD [Primary Care Provider] - 2 Weeks (message left for Dr Geronimo nurse to call you to schedule a hospital follow up appointment with in 2 weeks of discharge ) Diet/Activity/Treatments Diet: Diet as Tolerated and Regular Activity: As tolerated, no restrictions Visit Report/Discharge Packet Instructions: Chronic Obstructive Pulmonary Disease (Alternative Therapy), COPD: When to Call for Help Stand Alone Forms: Patient Portal/API, Stroke Signs & Symptoms Discharge Data Primary Care Provider: Maximiliano Javier Quality VTE Deep Vein Thrombosis/Pulmonary Embolism Present on Admission: No
== END 2023-03-06 15:55 | disposition home or self-care (01) | DRG 190 ==
LOC: ED 10:06 → AC 12:20
PROVIDERS: Admitting Provider Neuromusculoskeletal Medicine, Sports Medicine; Emergency Provider Emergency Medicine; PCP Internal Medicine; Visit Provider Neuromusculoskeletal Medicine, Sports Medicine
DX: J44.1 Chronic obstructive pulmonary disease with (acute) exacerbation (principal); J96.01 Acute respiratory failure with hypoxia; F41.9 Anxiety disorder, unspecified; F32.A Depression, unspecified; J30.2 Other seasonal allergic rhinitis; Z87.891 Personal history of nicotine dependence
CPT/HCPCS: 36415; 71045; 80053; 83605; 83880; 84484; 85025; 85610; 86140; 87633; 93005; 94640; 96374; 99285; A9270; J2930; J7613

== ENCOUNTER 2023-03-17 18:28 | Observation (INO) | payer MEDICARE, OTHER, SELFPAY ==
[2023-03-04 12:38] VITALS: BMI 25.0
[2023-03-17] VITALS (8 sets, daily range): BP systolic 103–131; BP diastolic 67–72; PULSE 75–101; RESP 18–34; TEMP 36.4–36.7; O2SAT 86–98; BMI 25.0; BMI 24.3
--- NOTE | 2023-03-17 18:39 | DI.RAD.S_ITS ---
PROCEDURE: XR CHEST 1V INDICATIONS: Shortness of breath TECHNIQUE: One view of the chest was acquired. COMPARISON: [facility], [place]OU[place], XR CHEST 1V, 03/04/2023, 9:02. [facility], CR, XR CHEST 1V, 07/25/2022, 10:08. FINDINGS: Surgical changes and devices: None. Lungs and pleura: Lungs are clear. No pleural effusions or pneumothorax. Mediastinum: Mediastinal contours appear normal. Heart size is normal. Bones and chest wall: No suspicious bony lesions. Overlying soft tissues appear unremarkable. IMPRESSION: No acute cardiopulmonary abnormality is seen. Approved by: Perez Roy M.D. on 03/17/2023 at 19:23
--- NOTE | 2023-03-17 18:40 | ED_ITS ---
HPI - General Adult General Chief complaint: Shortness of Breath/Dyspnea Stated complaint: trouble breathing x1 day Time Seen by Provider: 03/17/23 18:39 History of Present Illness HPI narrative: 63-year-old woman with a medical history significant for COPD which is not oxygen dependent no other significant medical history, hospitalized on March 04 through the for an acute COPD exacerbation returned to the emergency department complaining of acute dyspnea. Oxygenation on room air after walking into triage was 86% and she was obviously dyspneic. She denies no change to her mild chronic nonproductive cough, no fevers, chills, palpitations, nausea vomiting or diarrhea. She does note that 2 days ago she cleaned her of an with chemical even cleaner window and wondering if that might have caused symptoms. She is not entirely clear the symptoms worsened in a timeframe directly correlated to that. She is also wondering if she might be allergic to her mother's dog, the dog and the mother both live in her house. After discharge from the hospital she did complete the prednisone and the azithromycin course and felt better for a couple of days but has gradually worsened since then. Related Data Home Medications Medication Instructions Recorded Confirmed cetirizine 10 mg tablet (Zyrtec) 10 mg PO QPM 05/01/18 03/04/23 cholecalciferol (vitamin D3) 125 5,000 unit PO QPM 05/01/18 03/04/23 mcg (5,000 unit) tablet (Vitamin D3) citalopram 20 mg tablet 30 mg PO QPM 05/01/18 03/04/23 fluticasone 250 mcg-salmeterol 50 1 puff inhalation BID 05/01/18 03/04/23 mcg/dose blistr powdr for inhalation [id number] 1 tab PO QPM 05/01/18 03/04/23 tablet (Multivitamin 50 Plus tablet) albuterol sulfate 90 mcg/actuation 2 puff inhalation Q6H PRN 03/04/23 03/04/23 breath activated powder inhaler shortness of breath or wheezing ferrous sulfate 325 mg (65 mg 325 mg PO DAILY 03/04/23 03/04/23 iron) tablet fluticasone propionate 50 1 spray intranasal DAILY 03/04/23 03/04/23 mcg/actuation nasal spray,suspension Previous Rx's Medication Instructions Recorded albuterol sulfate 1.25 mg/3 mL 1.25 mg (3 mL) inhalation Q4-6H 03/06/23 solution for nebulization PRN shortness of breath or wheezing 30 days #75 mL nebulizer and compressor #1 ea 03/06/23 Allergies Allergy/AdvReac Type Severity Reaction Status Date / Time hydrocodone [From VICODIN] Allergy Mild flu like Verified 03/17/23 18:53 symptoms Review of Systems Review of Systems Narrative: Pertinent positive and negative findings as per HPI Patient History Medical History (Updated 03/17/23 @ 21:01 by Tana Mack MD) COPD (chronic obstructive pulmonary disease) Anxiety and depression Seasonal allergies Asthma Surgical History History of partial hysterectomy History of tonsillectomy History of tubal ligation Family History Other Family history non-contributory Social History household members: spouse Smoking Status: Former smoker alcohol intake: current additional social history: No EtOH Smoking Status: Former smoker tobacco type: cigarettes alcohol intake frequency: holidays/special occasions only Substance Use Type: does not use Exam Initial Vital Signs Initial Vital Signs: Vital Signs Temperature 98.0 F 03/17/23 18:30 Pulse Rate 101 H 03/17/23 18:30 Respiratory Rate 34 H 03/17/23 18:30 Blood Pressure 131/72 03/17/23 18:30 Pulse Oximetry 86 L 03/17/23 18:30 Oxygen Delivery Method Room Air 03/17/23 18:30 General: Thin, able to speak in full sentences, appears to feel unwell but, in no acute distress. Able to give a complete and coherent history. HEENT: Moist mucous membranes, normal sclera with reactive pupils, Neck: No JVD, supple Respiratory: Lungs with slightly decreased air movement throughout both lungs, no respiratory distress, no retractions, diffuse scattered wheeze more on the right than the left without any rhonchi appreciated Cardiac: Regular rate and rhythm no murmurs no bruits Abdomen: Soft, nontender, good bowel tones, no flank pain Skin: Warm and dry, no rashes Neurologic: Grossly neurologically intact with no obvious asymmetries or abnormalities Extremities: No trauma, well perfused, no lower extremity edema Psych: Cooperative, appropriate insight and affect Course Orders Ordered: ED Orders 03/17/23 18:39 XR chest 1V Stat EKG-12 Lead Stat Measure peak expiratory flow ONCE RT Consult Eval and Treat NOW 03/17/23 18:40 Covid-19 + FLU A/B + RSV - PCR Stat 03/17/23 18:45 Complete Blood Count AUTO DIFF Stat Comprehensive Metabolic Panel Stat Lactate (Lactic Acid) Stat NT-proBNP (BNP-Adult 18+) Stat Prothrombin Time INR Stat Troponin I Stat 03/17/23 18:52 D Dimer Stat Procalcitonin Stat 03/17/23 18:54 Respiratory Panel (Film Array) Stat Sodium Chloride (Normal Saline 0.9%) 1,000 mls @ 1,000 mls/hr IV BOLUS ONE Stop: 03/17/23 21:54 Last Admin: 03/17/23 21:06 Dose: 1,000 mls/hr Discontinued Medications Albuterol/Ipratropium (Albuterol/Ipratropium 3 Ml Ampul) 3 ml INH NOW ONE Stop: 03/17/23 18:56 Last Admin: 03/17/23 19:34 Dose: 3 ml Documented By: KAYLA Methylprednisolone (Methylprednisolone 125 Mg/2 Ml Vial) 125 mg IV NOW ONE Stop: 03/17/23 18:56 Last Admin: 03/17/23 19:03 Dose: 125 mg Documented By: TC Vital Signs Vital signs: Vital Signs - 8 hr 03/17/23 18:30 03/17/23 18:56 03/17/23 19:00 Temperature 98.0 F Pulse Rate 101 H 75 77 Respiratory Rate 34 H 25 H Blood Pressure 131/72 Pulse Oximetry 86 L 96 97 Oxygen Delivery Method Room Air Nasal Cannula Oxygen Flow Rate 2 03/17/23 19:30 03/17/23 19:35 03/17/23 20:00 Temperature Pulse Rate 76 78 79 Respiratory Rate 26 H 22 31 H Blood Pressure Pulse Oximetry 97 98 95 Oxygen Delivery Method Nasal Cannula Nasal Cannula Nasal Cannula Oxygen Flow Rate 2 2 2 Medical Decision Making Lab Data 03/17/23 18:45 03/17/23 18:45 Labs: Lab Results 03/17/23 03/17/23 03/17/23 Range/Units 18:40 18:45 18:52 WBC 8.3 (4.5-11.0) X10^3/uL RBC 4.11 (4.0-5.2) X10^6/uL Hgb 14.1 (12.0-16.0) g/dL Hct 41.0 (36-46) % MCV 99.7 (80-100) fL MCH 34.3 H (26-34) PG MCHC 34.4 (30-36) % RDW 12.0 (11.6-14.8) % Plt Count 283 (150-400) X10^3/uL Neut % (Auto) 63.0 (50-75) % Lymph % (Auto) 23.3 L (25-40) % [place] % (Auto) 8.1 (3-14) % Eos % (Auto) 4.6 H (2-4) % Baso % (Auto) 1.0 (0-2) % Neut # (Auto) 5200 (0798-6796) /uL Lymph # (Auto) 1900 (6595-9031) /uL [place] # (Auto) 700 (0-900) /uL Eos # (Auto) 400 (0-450) /uL Baso # (Auto) 100 (0-100) /uL PT 10.7 (10.1-12.7) SECONDS INR 0.9 (0.9-1.3) D-Dimer 509 H (<500) ng/ml Sodium 137 (137-145) mmol/L Potassium 4.2 (3.4-5.1) mmol/L Chloride 104 (98-107) mmol/L Carbon Dioxide 27 (22-32) mmol/L BUN 18 H (7-17) mg/dL Creatinine 0.90 (0.52-1.04) mg/dL Estimated GFR > 60 (>60) mL/min BUN/Creatinine Ratio 20.0 (6-22) Glucose 108 (80-110) mg/dL Lactate 0.8 (0.7-2.1) mmol/L Calcium 9.4 (8.4-10.2) mg/dL Total Bilirubin 0.6 (0.2-1.3) mg/dL AST 24 (14-36) IU/L ALT 21 (<35) IU/L Alkaline Phosphatase 82 (38-126) U/L Troponin I < 0.012 (0.01-0.034) ng/mL NT-Pro-B Natriuret Pep 92 (<125) pg/mL Total Protein 7.3 (6.3-8.2) g/dL Albumin 4.1 (3.5-5.0) g/dL Globulin 3.2 (1.7-4.1) g/dL Albumin/Globulin Ratio 1.3 (1.0-2.8) Procalcitonin 0.04 (<0.5) ng/mL SARS-CoV-2 (PCR) Negative (Negative) Influenza A (RT-PCR) Flu a negative (NEGATIVE) Influenza B (RT-PCR) Flu b negative (NEGATIVE) RSV (PCR) Negative (Negative) MDM Narrative Medical decision making narrative: CC: Dyspnea Complicating co-morbidities: Recent hospitalization for same with final diagnosis of COPD exacerbation Data collected from: patient, Medical records reviewed: Recent hospitalization for COPD exacerbation is reviewed, she improved with steroids increased nebs and was discharged home with an additional 5 days of prednisone and azithromycin. Albuterol nebulizer for home use was also prescribed and she continued on her fluticasone/salmeterol b.i.d. use Differential considered: Acute COPD exacerbation, pulmonary embolism, pneumothorax, congestive heart failure, acute coronary syndrome, viral syndrome, bacterial pneumonia Exam documented above, pertinent findings include: On oxygen she is feeling significantly better. No respiratory distress, no retractions she does have scattered wheezing all lung [place]. Heart and abdomen are benign. No lower extremity edema. No clinical findings of congestive heart failure Lab Test results independently reviewed as above. Pertinent findings: CBC is unremarkable, no significant leukocytosis or anemia Chemistries are reassuring Troponin is undetectable Procalcitonin is quite low suggesting no acute bacterial infection ProBNP is within normal limits D-dimer is appropriate when corrected for age Respiratory serology shows no RSV flu or COVID Independently reviewed EKG sinus rhythm rate of 79. Poor baseline. Normal intervals, normal axis. No acute ischemia Imaging studies independently reviewed: Patient had routine screening low radiation CT scan February 18 of this year that did not show any acute findings Chest x-ray on 03/04 did not show acute findings Consultations:discussed with Dr Drake. Admit accepted Treatments: Solu-Medrol, DuoNeb, fluids at this point I think this is entirely COPD exacerbation and antibiotics are not added. With a CT scan done in January of this year neoplasm is far less likely and chest x-ray is unremarkable today, with D-dimer inappropriate levels corrected for age CT scan of the chest is not indicated today Re-evaluations: After DuoNeb Solu-Medrol fluids brief trial at rest with room air shows that her oxygen levels dropped down to 86% again. Discussion: 63-year-old woman with recurrent hypoxia with mild cough. Workup is unremarkable for explanations beyond acute COPD exacerbation such as bacterial pneumonia, pulmonary embolism, cardiac etiology. Full respiratory panel is currently pending but would not influence recommendations for admission given her persistent hypoxia. Wheezing did respond moderately to the DuoNeb and the steroids. We will review findings with the hospitalist service for admission, all of this is reviewed with patient and her questions are answered and they understand need for hospitalization. Discharge Plan Departure Patient Disposition: Admitted as Observation Clinical Impression: Acute exacerbation of chronic obstructive airways disease, Hypoxia
--- NOTE | 2023-03-17 18:54 | PC.NURSE ---
placed on oxygen 2 l nc. room air sat 86-87 percent with a good pleth. pulse ox 94 percent on oxygen
[2023-03-17] MEDS: methylPREDNISolone 125 MG/2 ML VIAL IV (19:03)
[2023-03-17 19:06] LABS: Add Manual Diff / Slide Review NO; Basophils Absolute Auto 100 /uL (0-100); Eosinophils Absolute Auto 400 /uL (0-450); Eosinophils Percent Auto 4.6 % (2-4); Hemoglobin 14.1 g/dL (12.0-16.0); Lymphocytes Absolute Auto 1900 /uL (1100-4500); Lymphocytes Percent Auto 23.3 % (25-40); Mean Corpuscular HGB Conc 34.4 % (30-36); Mean Corpuscular Hemoglobin 34.3 PG (26-34); Mean Corpuscular Volume 99.7 fL (80-100); Monocytes Absolute Auto 700 /uL (0-900); Monocytes Percent Auto 8.1 % (3-14); Neutrophils Absolute Auto 5200 /uL (1500-7000); Platelet Count 283 X10^3/uL (150-400); Red Blood Cell Count 4.11 X10^6/uL (4.0-5.2); White Blood Cell Count 8.3 X10^3/uL (4.5-11.0)
[2023-03-17 19:10] LABS: INR 0.9 (0.9-1.3); Prothrombin Time 10.7 SECONDS (10.1-12.7)
[2023-03-17 19:13] LABS: Lactate (Lactic Acid) 0.8 mmol/L (0.7-2.1)
[2023-03-17 19:15] LABS: Alanine Aminotransferase 21 IU/L (<35); Albumin 4.1 g/dL (3.5-5.0); Albumin Globulin Ratio 1.3 (1.0-2.8); Alkaline Phosphatase 82 U/L (38-126); Aspartate Aminotransferase 24 IU/L (14-36); Bilirubin Total 0.6 mg/dL (0.2-1.3); Blood Urea Nitrogen 18 mg/dL (7-17); Calcium 9.4 mg/dL (8.4-10.2); Carbon Dioxide 27 mmol/L (22-32); Chloride 104 mmol/L (98-107); Estimated Glomerular Filt Rate > 60 mL/min (>60); Globulin 3.2 g/dL (1.7-4.1); Glucose 108 mg/dL (80-110); HEMOLYSIS 30 (0-50); Potassium 4.2 mmol/L (3.4-5.1); Sodium 137 mmol/L (137-145); Total Protein 7.3 g/dL (6.3-8.2)
[2023-03-17 19:18] LABS: D Dimer 509 ng/ml (<500)
[2023-03-17 19:23] LABS: Influenza A - CEPHEID Flu A NEGATIVE (NEGATIVE); Influenza B - CEPHEID Flu B NEGATIVE (NEGATIVE); Respiratory Syncytial Virus Negative (Negative)
[2023-03-17 19:26] LABS: NT-proBNP (BNP-Adult 18+) 92 pg/mL (<125); Troponin I < 0.012 ng/mL (0.01-0.034)
[2023-03-17 19:32] LABS: Procalcitonin 0.04 ng/mL (<0.5)
[2023-03-17] MEDS: ALBUTEROL/IPRATROPIUM 3 ML AMPUL INH (19:34)
[2023-03-17 19:36] LABS: COVID-19 CEPHEID 4-PLEX PCR Negative (Negative)
--- NOTE | 2023-03-17 20:37 | PC.NURSE ---
Patient taken off O2 for 10 minutes. She stayed 94-95% FOR 7 minutes and then slowly decreased down to 88% at the 10 min remy. Patient was at rest the entire time. O2 was reapplied at 2 l and O2 saturation went back up to mid 90's. notified.
[2023-03-17] MEDS: SODIUM CHLORIDE 0.9% 1,000 ML 1000 ML IV (21:06)
--- NOTE | 2023-03-17 21:40 | PM.HP.1 ---
History of Present Illness History of Present Illness Date Patient Seen: 03/17/23 Chief complaint: trouble breathing x1 day Narrative: 63 y/o smoker, who was just hospitalized for 2-3 days with COPD exacerbation, discharged home on albuterol MDI and nebs, short course of prednisone and zithromax. She improved but since 1-2 days ago progressively more short of breath, w/o fever, chills, productive cough, hemoptysis, chest pain. In ED saturates in mid 80-ies, on 2 L of oxygen in high 80-ies / low 90-ies. [facility] Medical History (Updated 03/17/23 @ 21:53 by Dmitry Carver MD) Environmental allergies Smoker Depression with anxiety COPD (chronic obstructive pulmonary disease) Anxiety and depression Seasonal allergies Asthma Surgical History History of partial hysterectomy History of tonsillectomy History of tubal ligation Family History Other Family history non-contributory Social History household members: spouse Smoking Status: Former smoker alcohol intake: current additional social history: No EtOH Meds Home Medications and Allergies Home Medications Medication Instructions Recorded Confirmed Type cetirizine 10 mg tablet (Zyrtec) 10 mg PO QPM 05/01/18 03/17/23 History cholecalciferol (vitamin D3) 125 5,000 unit PO QPM 05/01/18 03/17/23 History mcg (5,000 unit) tablet (Vitamin D3) citalopram 20 mg tablet 30 mg PO QPM 05/01/18 03/17/23 History fluticasone 250 mcg-salmeterol 50 1 puff inhalation BID 05/01/18 03/17/23 History mcg/dose blistr powdr for inhalation [id number]-[id number]-clhrtf 1 tab PO QPM 05/01/18 03/17/23 History tablet (Multivitamin 50 Plus tablet) albuterol sulfate 90 mcg/actuation 2 puff inhalation Q6H PRN 03/04/23 03/17/23 History breath activated powder inhaler shortness of breath or wheezing albuterol sulfate 1.25 mg/3 mL 1.25 mg (3 mL) inhalation Q4-6H 03/06/23 03/17/23 Rx solution for nebulization PRN shortness of breath or wheezing 30 days #75 mL nebulizer and compressor #1 ea 03/06/23 03/17/23 Rx Allergies Allergy/AdvReac Type Severity Reaction Status Date / Time hydrocodone [From VICODIN] Allergy Mild flu like Verified 03/17/23 18:53 symptoms Review of Systems Constitutional Comments: w/o fever or chills ENT Comments: w/o nasal congestion or sore throat Cardiovascular Comments: w/o palpitations or chest pain Respiratory Comments: progressive shortness of breath, wheezing Gastrointestinal Comments: w/o complaints Genitourinary Comments: w/o complaints Exam Vital Signs (past 8 hours): - 03/17/23 18:30 03/17/23 18:56 03/17/23 19:00 Temperature 98.0 F Pulse Rate 101 H 75 77 Respiratory Rate 34 H 25 H Blood Pressure 131/72 Pulse Oximetry 86 L 96 97 Oxygen Delivery Method Room Air Nasal Cannula Oxygen Flow Rate 2 03/17/23 19:30 03/17/23 19:35 03/17/23 20:00 Temperature Pulse Rate 76 78 79 Respiratory Rate 26 H 22 31 H Blood Pressure Pulse Oximetry 97 98 95 Oxygen Delivery Method Nasal Cannula Nasal Cannula Nasal Cannula Oxygen Flow Rate 2 2 2 Oxygen Delivery Method Nasal Cannula Oxygen Flow Rate 2 Const Other: Sitting in bed in no distress HENMT Other: normocephalic, NC Eyes Other: eomi, normal appearance Resp Other: b/l rhonchi and left lung wheezes Cardio Other: RRR GI Other: not distended Skin Other: w/o rashes or cyanosis Neuro Other: w/o deficits Extrem Other: w/o swelling Psych Other: mood appropriate, lucid Objective Labs 03/17/23 18:45 03/17/23 18:45 Labs: Laboratory Results - last 24 hr 03/17/23 03/17/23 03/17/23 18:40 18:45 18:52 WBC 8.3 RBC 4.11 Hgb 14.1 Hct 41.0 MCV 99.7 MCH 34.3 H MCHC 34.4 RDW 12.0 Plt Count 283 Neut % (Auto) 63.0 Lymph % (Auto) 23.3 L [place] % (Auto) 8.1 Eos % (Auto) 4.6 H Baso % (Auto) 1.0 Neut # (Auto) 5200 Lymph # (Auto) 1900 [place] # (Auto) 700 Eos # (Auto) 400 Baso # (Auto) 100 PT 10.7 INR 0.9 D-Dimer 509 H Sodium 137 Potassium 4.2 Chloride 104 Carbon Dioxide 27 BUN 18 H Creatinine 0.90 Estimated GFR > 60 BUN/Creatinine Ratio 20.0 Glucose 108 Lactate 0.8 Calcium 9.4 Total Bilirubin 0.6 AST 24 ALT 21 Alkaline Phosphatase 82 Troponin I < 0.012 NT-Pro-B Natriuret Pep 92 Total Protein 7.3 Albumin 4.1 Globulin 3.2 Albumin/Globulin Ratio 1.3 Procalcitonin 0.04 SARS-CoV-2 (PCR) Negative Influenza A (RT-PCR) Flu a negative Influenza B (RT-PCR) Flu b negative RSV (PCR) Negative Assessment & Plan Assessment and plan (1) Acute hypoxemic respiratory failure: Status: Acute Plan: second episode in 2 weeks. Oxygen, COPD Tx. (2) Acute exacerbation of chronic obstructive airways disease: Status: Acute Plan: Steroid, bronchodilators GI prophylaxis - PPI At home on Advair Albuterol nebs and MDI - since her discharge less then 2 weeks ago Viral respiratory panel pending It doesn't look like she ever had PFTs. She could benefit from referral to pulmonology (3) Depression with anxiety: Status: Acute Plan: Citalopram (4) Environmental allergies: Status: Acute Plan: Claritin
[2023-03-17 21:53] LABS: Adenovirus Not Detected (Not Detect); B. parapertussis Not Detected (Not Detecte); Bordetella pertussis Not Detected (Not Detect); Chlamydophila pneumoniae Not Detected (Not Detect); Coronavirus 229E Not Detected (Not Detect); Coronavirus HKU1 Not Detected (Not Detect); Coronavirus NL 63 Not Detected (Not Detect); Coronavirus OC43 Not Detected (Not Detect); Human Metapneumovirus Not Detected (Not Detect); Human Rhinovirus/Enterovirus Not Detected (Not Detect); Influenza A Not Detected (Not Detect); Influenza B Not Detected (Not Detect); Mycoplasma pneumoniae Not Detected (Not Detect); Parainfluenza Virus 1 Not Detected (Not Detect); Parainfluenza Virus 2 Not Detected (Not Detect); Parainfluenza Virus 3 Not Detected (Not Detect); Parainfluenza Virus 4 Not Detected (Not Detect); Respiratory Syncytial Virus Not Detected (Not Detect); SARS- CoV-2 Not Detected (Not Detecte)
[2023-03-17] MEDS: ZOLPIDEM 5 MG TABLET PO (22:48)
[2023-03-18] VITALS (10 sets, daily range): BP systolic 109–155; BP diastolic 67–84; PULSE 72–91; RESP 16–24; TEMP 36.4–36.7; O2SAT 90–98; BMI 24.3
[2023-03-18] MEDS: methylPREDNISolone 125 MG/2 ML VIAL 60 MG IV ×2 (06:25→18:24)
[2023-03-18] MEDS: PANTOPRAZOLE DR 40 MG TABLET PO (06:27)
[2023-03-18] MEDS: ENOXAPARIN 40 MG/0.4 ML SYRINGE SUBCUT (08:11)
[2023-03-18] MEDS: FERROUS SULFATE 325 MG TABLET PO (08:11)
[2023-03-18 08:47] LABS: Add Manual Diff / Slide Review NO; Basophils Absolute Auto 0 /uL (0-100); Basophils Percent Auto 0.1 % (0-2); Eosinophils Absolute Auto 0 /uL (0-450); Hematocrit 41.5 % (36-46); Hemoglobin 14.2 g/dL (12.0-16.0); Lymphocytes Absolute Auto 600 /uL (1100-4500); Lymphocytes Percent Auto 6.1 % (25-40); Mean Corpuscular HGB Conc 34.1 % (30-36); Mean Corpuscular Volume 99.8 fL (80-100); Monocytes Absolute Auto 100 /uL (0-900); Neutrophils Absolute Auto 8900 /uL (1500-7000); Neutrophils Percent Auto 92.8 % (50-75); Platelet Count 264 X10^3/uL (150-400); Red Blood Cell Count 4.16 X10^6/uL (4.0-5.2); White Blood Cell Count 9.5 X10^3/uL (4.5-11.0)
[2023-03-18 09:04] LABS: Blood Urea Nitrogen 21 mg/dL (7-17); Calcium 9.6 mg/dL (8.4-10.2); Carbon Dioxide 25 mmol/L (22-32); Chloride 104 mmol/L (98-107); Estimated Glomerular Filt Rate > 60 mL/min (>60); Glucose 147 mg/dL (80-110); HEMOLYSIS < 15 (0-50); Potassium 4.6 mmol/L (3.4-5.1); Sodium 135 mmol/L (137-145)
[2023-03-18] MEDS: ALBUTEROL/IPRATROPIUM 3 ML AMPUL INH ×4 (09:21→23:00)
[2023-03-18] MEDS: BUDESONIDE 0.5 MG/2 ML NEB INH ×2 (09:21→19:00)
--- NOTE | 2023-03-18 09:29 | CM.DANOTE ---
DCP: Case received, EMR reviewed and met with patient. Introduced self and role. Was able to obtain information regarding patient's baseline activity status prior to hospitalization. DCP assessment completed with information currently available. Patient is a 63 year old female who admitted yesterday evening to the care of the hospitalist team. PCP: Dr. Javier. Payer: confirmed: Medicare/Cutefund for [employer]. Patient came to the hospital via family vehicle secondary to having increased shortness of breath. Patient had noted that her oxygen saturations were about 86%. Notes indicate that patient stated that 2 days ago, she used some chemicals for cleaning, thought this may contribute, or possibly her mother's dog, for possible allergies. Patient has history of COPD, is not on any oxygen at her baseline. Patient was admitted for acute COPD exacerbation. Met with patient in her room, she was sitting up in bed, oxygen in place. Confirmed that she resides in [place] with hser spouse, Edmond. She confirmed that she still sees Dr. Javier as her primary care provider. She is independent at her baseline, and drives. P: DCP to continue to follow. Plan is for patient to go home when deemed medically stable. Yaz Tavarez RN/[employer] Adf Developer Discharge Planning/Care Management CM Discharge Assessment Start: 03/18/23 09:28 Freq: Status: Active Protocol: Document 03/18/23 09:28 (Rec: 03/18/23 09:29 [id number]) Discharge Planning Assessment Assigned Patcher Yaz Tavarez RN/Oracle Adf Developer Advance Directives? No History Provided By Patient,Medical Record Household Members spouse Type of transporation used prior to Drives own vehicle admit Independent with ADL's Yes Is patient alert and oriented? Yes Caregiver for Another No Barriers to Discharge No Discharge Plan Home Transportation Arrangement likely family in [place] Referrals Initiated None needed Whiteboard Updated in Patient Room with Yes name and ext. # of [place]cher Review Status In Process Next Review Type Continued Stay Review
--- NOTE | 2023-03-18 16:02 | P.PN_ITS ---
Subjective Subjective Interval history: Feeling a little better today. Still dyspneic when getting up to brush teeth this morning. Home O2 eval showed 1L needed with ambulation but none at rest. Exam Vital Signs (past 8 hours): - 03/18/23 08:03 03/18/23 09:22 03/18/23 11:00 Temperature 97.5 F L 98.1 F Pulse Rate 78 77 81 Respiratory Rate 18 22 18 Blood Pressure 128/77 120/84 Pulse Oximetry 95 91 92 Oxygen Delivery Method Room Air Oxygen Flow Rate 2 0 Fraction of Inspired Oxygen 03/18/23 11:00 03/18/23 13:20 03/18/23 14:26 Temperature 98.1 F 97.7 F Pulse Rate 81 83 89 Respiratory Rate 18 16 24 Blood Pressure 120/84 155/76 H Pulse Oximetry 92 96 92 Oxygen Delivery Method Room Air Oxygen Flow Rate 0 0 0 Fraction of Inspired Oxygen 21 03/18/23 15:13 Temperature 98.1 F Pulse Rate 91 H Respiratory Rate 18 Blood Pressure 109/74 Pulse Oximetry 90 L Oxygen Delivery Method Oxygen Flow Rate 0 Fraction of Inspired Oxygen Fraction of Inspired Oxygen 21 SaO2/FiO2 Ratio 438 Oxygen Delivery Method Room Air Oxygen Flow Rate 0 Const Other: Sitting in bed in no distress HENMT Other: normocephalic, NC Eyes Other: eomi, normal appearance Resp Other: b/l rhonchi and left lung wheezes have nearly resolved Cardio Other: RRR GI Other: not distended Skin Other: w/o rashes or cyanosis Neuro Other: w/o deficits Extrem Other: w/o swelling Psych Other: mood appropriate, lucid Objective Labs 03/18/23 08:07 03/18/23 08:07 Labs: Laboratory Results - last 24 hr 03/17/23 03/17/23 03/17/23 18:40 18:40 18:40 WBC RBC Hgb Hct MCV MCH MCHC RDW Plt Count Neut % (Auto) Lymph % (Auto) [place] % (Auto) Eos % (Auto) Baso % (Auto) Neut # (Auto) Lymph # (Auto) [place] # (Auto) Eos # (Auto) Baso # (Auto) PT INR D-Dimer Sodium Potassium Chloride Carbon Dioxide BUN Creatinine Estimated GFR BUN/Creatinine Ratio Glucose Lactate Calcium Total Bilirubin AST ALT Alkaline Phosphatase Troponin I NT-Pro-B Natriuret Pep Total Protein Albumin Globulin Albumin/Globulin Ratio Procalcitonin Chlamy pneumoniae PCR Not detected Adenovirus (PCR) Not detected B.parapertussis DNA PCR Not detected Coronavirus OC43 (PCR) Not detected Coronavirus HKU1 (PCR) Not detected Coronavirus 229E (PCR) Not detected SARS-CoV-2 (PCR) Negative Not detected Coronavirus NL63 (PCR) Not detected Human Metapneumovir PCR Not detected Influenza A (RT-PCR) Flu a negative Influenza Type A (PCR) Not detected Influenza B (RT-PCR) Flu b negative Influenza Type B (PCR) Not detected M. pneumoniae (PCR) Not detected Parainfluenza 1 (PCR) Not detected Parainfluenza 2 (PCR) Not detected Parainfluenza 3 (PCR) Not detected Parainfluenza 4 (PCR) Not detected RSV (PCR) Negative Not detected Entero/Rhino (PCR) Not detected 03/17/23 03/17/23 03/18/23 18:45 18:52 08:07 WBC 8.3 9.5 RBC 4.11 4.16 Hgb 14.1 14.2 Hct 41.0 41.5 MCV 99.7 99.8 MCH 34.3 H 34.0 MCHC 34.4 34.1 RDW 12.0 12.0 Plt Count 283 264 Neut % (Auto) 63.0 92.8 H D Lymph % (Auto) 23.3 L 6.1 L [place] % (Auto) 8.1 1.0 L Eos % (Auto) 4.6 H 0.0 L Baso % (Auto) 1.0 0.1 Neut # (Auto) 5200 8900 H Lymph # (Auto) 1900 600 L [place] # (Auto) 700 100 Eos # (Auto) 400 0 Baso # (Auto) 100 0 PT 10.7 INR 0.9 D-Dimer 509 H Sodium 137 135 L Potassium 4.2 4.6 Chloride 104 104 Carbon Dioxide 27 25 BUN 18 H 21 H Creatinine 0.90 0.75 Estimated GFR > 60 > 60 BUN/Creatinine Ratio 20.0 28.0 H Glucose 108 147 H Lactate 0.8 Calcium 9.4 9.6 Total Bilirubin 0.6 AST 24 ALT 21 Alkaline Phosphatase 82 Troponin I < 0.012 NT-Pro-B Natriuret Pep 92 Total Protein 7.3 Albumin 4.1 Globulin 3.2 Albumin/Globulin Ratio 1.3 Procalcitonin 0.04 Chlamy pneumoniae PCR Adenovirus (PCR) B.parapertussis DNA PCR Coronavirus OC43 (PCR) Coronavirus HKU1 (PCR) Coronavirus 229E (PCR) SARS-CoV-2 (PCR) Coronavirus NL63 (PCR) Human Metapneumovir PCR Influenza A (RT-PCR) Influenza Type A (PCR) Influenza B (RT-PCR) Influenza Type B (PCR) M. pneumoniae (PCR) Parainfluenza 1 (PCR) Parainfluenza 2 (PCR) Parainfluenza 3 (PCR) Parainfluenza 4 (PCR) RSV (PCR) Entero/Rhino (PCR) [facility] Medical History (Updated 03/17/23 @ 21:53 by Dmitry Carver MD) Environmental allergies Smoker Depression with anxiety COPD (chronic obstructive pulmonary disease) Anxiety and depression Seasonal allergies Asthma Surgical History History of partial hysterectomy History of tonsillectomy History of tubal ligation Family History Other Family history non-contributory Social History household members: spouse Smoking Status: Former smoker alcohol intake: current additional social history: No EtOH Assessment & Plan Assessment and plan (1) Acute hypoxemic respiratory failure: Status: Acute Plan: second episode in 2 weeks. Likely due to chemical reaction from spraying oven block cleaner without mask. Oxygen, COPD Tx. improving, weaned off O2 at rest may need 1L with exertion, RT to reassess on 03/19 for home O2 (2) Acute exacerbation of chronic obstructive airways disease: Status: Acute Plan: Steroid, bronchodilators GI prophylaxis - PPI At home on Advair Albuterol nebs and MDI - since her discharge less then 2 weeks ago Viral respiratory panel negative It doesn't look like she ever had PFTs. She could benefit from referral to pulmonology, patient will get PCP referral. (3) Depression with anxiety: Status: Acute Plan: Citalopram (4) Environmental allergies: Status: Acute Plan: Claritin Plan Dispo: Home on 03/19.
[2023-03-18] MEDS: CITALOPRAM 10 MG TABLET 30 MG PO (21:05)
[2023-03-18] MEDS: MULTIVITAMIN 1 TABLET 1 TAB PO (21:05)
[2023-03-18] MEDS: LORATADINE 10 MG TABLET PO (21:06)
[2023-03-18] MEDS: TRAZODONE 50 MG TABLET PO (21:06)
[2023-03-19] MEDS: ACETAMINOPHEN 325 MG TABLET 650 MG PO (00:21)
[2023-03-19 05:15] VITALS: BP 118/66; PULSE 65; RESP 18; TEMP 36.2; O2SAT 92
[2023-03-19 06:01] LABS: Add Manual Diff / Slide Review NO; Basophils Absolute Auto 0 /uL (0-100); Basophils Percent Auto 0.1 % (0-2); Eosinophils Absolute Auto 0 /uL (0-450); Hematocrit 38.6 % (36-46); Hemoglobin 13.1 g/dL (12.0-16.0); Lymphocytes Absolute Auto 900 /uL (1100-4500); Lymphocytes Percent Auto 5.9 % (25-40); Mean Corpuscular Hemoglobin 33.9 PG (26-34); Mean Corpuscular Volume 99.8 fL (80-100); Monocytes Absolute Auto 500 /uL (0-900); Monocytes Percent Auto 3.2 % (3-14); Neutrophils Absolute Auto 13400 /uL (1500-7000); Neutrophils Percent Auto 90.8 % (50-75); Platelet Count 257 X10^3/uL (150-400); Red Blood Cell Count 3.87 X10^6/uL (4.0-5.2); Red Cell Distribution Width 12.1 % (11.6-14.8); White Blood Cell Count 14.7 X10^3/uL (4.5-11.0)
[2023-03-19] MEDS: methylPREDNISolone 125 MG/2 ML VIAL 60 MG IV (06:02)
[2023-03-19] MEDS: PANTOPRAZOLE DR 40 MG TABLET PO (06:02)
[2023-03-19 06:10] LABS: BUN Creatinine Ratio 26.8 (6-22); Blood Urea Nitrogen 22 mg/dL (7-17); Calcium 9.4 mg/dL (8.4-10.2); Carbon Dioxide 27 mmol/L (22-32); Chloride 104 mmol/L (98-107); Estimated Glomerular Filt Rate > 60 mL/min (>60); Glucose 141 mg/dL (80-110); HEMOLYSIS < 15 (0-50); Potassium 3.9 mmol/L (3.4-5.1); Sodium 136 mmol/L (137-145)
[2023-03-19] MEDS: ENOXAPARIN 40 MG/0.4 ML SYRINGE SUBCUT (08:53)
[2023-03-19] MEDS: FERROUS SULFATE 325 MG TABLET PO (08:53)
[2023-03-19 09:00] VITALS: BP 120/82; PULSE 82; RESP 16; TEMP 36.3; O2SAT 96
[2023-03-19 09:02] VITALS: PULSE 78; RESP 18; O2SAT 92
[2023-03-19] MEDS: ALBUTEROL/IPRATROPIUM 3 ML AMPUL INH ×2 (09:02→13:35)
[2023-03-19] MEDS: BUDESONIDE 0.5 MG/2 ML NEB INH (09:02)
[2023-03-19 12:47] VITALS: BP 112/66; PULSE 84; RESP 16; TEMP 36.2; O2SAT 96
[2023-03-19 13:35] VITALS: PULSE 82; RESP 18; O2SAT 93
--- NOTE | 2023-03-19 13:48 | CM.DPC ---
DCP Continued: Per RN, patient doing better. Walked without O2 down the hallway. Has no needs. Per chart, patient to d/c home today with spouse. No needs. Plan: patient to d/c home with no CM needs identified at this time. CM team to continue to follow as needed. ADEN Monet
--- NOTE | 2023-03-19 15:22 | PC.NURSE ---
Discharge Note Patient A&o, VSS, RA, no complaints of pain/discomfort. Discharge packet reviewed with patient, all questions/concerns addressed. PIV discontinued. Patient able to dress self and pack all belongings. 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 Patient taken down via wheelchair to POV.
--- NOTE | 2023-03-21 17:13 | PM.DS.1 ---
History of Present Illness History of Present Illness Date Patient Seen: 03/17/23 Chief complaint: trouble breathing x1 day Narrative: Per admitting physician: 63 y/o smoker, who was just hospitalized for 2-3 days with COPD exacerbation, discharged home on albuterol MDI and nebs, short course of prednisone and zithromax. She improved but since 1-2 days ago progressively more short of breath, w/o fever, chills, productive cough, hemoptysis, chest pain. In ED saturates in mid 80-ies, on 2 L of oxygen in high 80-ies / low 90-ies. Discharge Providers Provider Date of admission: 03/17/23 21: Discharge Date: 03/19/23 Primary care physician: Maximiliano Javier MD Discharge provider: Franklin Armstrong MD Summary Hospital Course Discharge Diagnosis: 1. Acute hypoxemic respiratory failure 2. COPD exacerbation 3. Depression Hospital Course: Ms. Felder was admitted again with respiratory failure from COPD. She may have had worse exacerbation after a cleaning episode in her house. She was able to be weaned off oxygen. She was discharged with a steroid taper. She was encouraged to establish with a PCP and then get referral to pulmonology and for PFTs. Exam Vital Signs (past 8 hours): Fraction of Inspired Oxygen 21 SaO2/FiO2 Ratio 442 Oxygen Delivery Method Room Air Oxygen Flow Rate 0 Const Other: Sitting in bed in no distress Resp Other: clear bilaterally Cardio Other: RRR Objective Labs 03/19/23 05:15 03/19/23 05:15 [facility] Medical History (Updated 03/17/23 @ 21:53 by Dmitry Carver MD) Environmental allergies Smoker Depression with anxiety COPD (chronic obstructive pulmonary disease) Anxiety and depression Seasonal allergies Asthma Surgical History History of partial hysterectomy History of tonsillectomy History of tubal ligation Family History Other Family history non-contributory Social History household members: spouse Smoking Status: Former smoker alcohol intake: current additional social history: No EtOH Discharge Plan Discharge Plan Patient Disposition: Home Provider Discharge Comment: Ms. Felder was admitted for a COPD flare. She improved with treatments. She should take a prednisone taper with 40mg for 2 days, 30mg for 2 days, 20mg for 2 days, 10mg for 2 days, then stop. Discharge orders & Medications Prescriptions: New prednisone 10 mg tablet 40 mg PO DAILY Qty: 20 0RF Rx Instructions: take 40mg x 2 days, 30mg x 2 days, 20mg x 2 days, 10mg x 2 days Continued fluticasone propion-salmeterol 250-50 mcg/dose blister with device 1 puff Inhalation BID citalopram 20 mg tablet 30 mg PO QPM Rx Instructions: 1.5 tabs cetirizine [Zyrtec] 10 mg Tablet 10 mg PO QPM Multivitamin 50 Plus Tablet 1 tab PO QPM cholecalciferol (vitamin D3) [Vitamin D3] 5,000 unit Tablet 5,000 unit PO QPM albuterol sulfate 90 mcg/actuation aerosol powdr breath activated 2 puff INHALATION Q6H PRN (Reason: shortness of breath or wheezing) Rx Instructions: administer with spacer (DME) nebulizer and compressor Device See Rx Instructions .Route Qty: 1 0RF Rx Instructions: One nebulizer and compressor albuterol sulfate 1.25 mg/3 mL solution for nebulization 1.25 mg inhalation Q4-6H PRN (Reason: shortness of breath or wheezing) 30 Days Qty: 75 0RF Follow up/Referrals: Maximiliano Javier MD [Primary Care Provider] - 1 Week (hospitalized twice for copd flare) Visit Report/Discharge Packet Stand Alone Forms: Patient Portal/API, Stroke Signs & Symptoms Discharge Data Primary Care Provider: Maximiliano Javier Attending Provider: Dmitry Osborn Admit Date/Time: 03/17/23 21:23
== END 2023-03-19 14:00 | disposition home or self-care (01) ==
LOC: ED 21:01 → AC 03-18 08:00
PROVIDERS: Student in an Organized Health Care Education/Training Program; Admitting Provider Internal Medicine; Emergency Provider Emergency Medicine; PCP Internal Medicine; Referring Provider Emergency Medicine; Visit Provider Internal Medicine
DX: J96.01 Acute respiratory failure with hypoxia (principal); J44.1 Chronic obstructive pulmonary disease with (acute) exacerbation; F32.A Depression, unspecified
CPT/HCPCS: 0241U; 36415; 71045; 80048; 80053; 83605; 83880; 84145; 84484; 85025; 85379; 85610; 87633; 93005; 93010; 94640; 94762; 96361; 96372; 96374; 96376; 99285; G0378; J1650; J2930

== ENCOUNTER → 2023-03-28 13:12 | Outpatient (CLI) | payer MEDICARE, OTHER, SELFPAY ==
[2023-03-18 01:59] VITALS: BMI 24.3
== END ==
PROVIDERS: PCP Internal Medicine; Referring Provider Nurse Practitioner Family; Visit Provider Nurse Practitioner Family
DX: J44.9 Chronic obstructive pulmonary disease, unspecified (principal); Z87.891 Personal history of nicotine dependence
CPT/HCPCS: 94060; 94726; 94729

== ENCOUNTER → 2023-05-31 11:34 | Outpatient (CLI) | payer MEDICARE, OTHER, SELFPAY ==
[2023-03-18 01:59] VITALS: BMI 24.3
--- NOTE | 2023-05-31 | DI.RAD.S_ITS ---
PROCEDURE: XR CHEST 2V INDICATIONS: cough TECHNIQUE: 2 views of the chest were acquired. COMPARISON: [facility], CR, XR CHEST 1V, 03/17/2023, 19:09. [facility], CR, XR CHEST 1V, 03/04/2023, 9:02. FINDINGS: Surgical changes and devices: None. Lungs and pleura: Lungs are clear. No pleural effusions or pneumothorax. Mediastinum: Mediastinal contours are normal. Heart size is normal. Bones and chest wall: No suspicious bony abnormalities. Soft tissues appear unremarkable. IMPRESSION: No acute cardiopulmonary abnormality is seen. Dictated by: Aden Garcia M.D. on 05/31/2023 at 12:50 Approved by: Aden Garcia M.D. on 05/31/2023 at 12:51
== END ==
PROVIDERS: PCP Internal Medicine; Referring Provider Nurse Practitioner Family; Visit Provider Nurse Practitioner Family
DX: R05.9 Cough, unspecified (principal)
CPT/HCPCS: 71046

== ENCOUNTER → 2023-08-11 12:17 | Outpatient (CLI) | payer MEDICARE, OTHER, SELFPAY ==
[2023-03-18 01:59] VITALS: BMI 24.3
--- NOTE | 2023-08-11 12:20 | DI.CT.S_ITS ---
PROCEDURE: CT SINUS SCREEN WO CON INDICATIONS: Chronic sinusitis, unspecified TECHNIQUE: Noncontrast 3.0 mm axial images acquired from the frontal sinuses to the mid-sella, with coronal and sagittal reformats. For radiation dose reduction, the following was used: automated exposure control, adjustment of mA and/or kV according to patient size. COMPARISON: None. FINDINGS: Image quality: Excellent. Sinuses: Scattered minimal mucosal thickening is present within the maxillary sinuses. No fluid levels. Ostiomeatal Complexes: Ostiomeatal complexes are patent. Minimal narrowing of the left ostiomeatal complex secondary to septal deviation. Miscellaneous: Visualized intra-orbital contents are normal. Right middle marco antonio bullosa with right middle paradoxical turbinate curvature. Leftward nasal septal deviation. IMPRESSION: Minimal maxillary sinus mucosal thickening without fluid levels. Nasal septal deviation. Dictated by: Sintia Stewart M.D. on 08/11/2023 at 18:08 Approved by: Sintia Stewart M.D. on 08/11/2023 at 18:10
== END ==
LOC: CT 12:18
PROVIDERS: PCP Internal Medicine; Referring Provider Internal Medicine; Visit Provider Internal Medicine
DX: J32.9 Chronic sinusitis, unspecified (principal); J34.3 Hypertrophy of nasal turbinates; J34.2 Deviated nasal septum
CPT/HCPCS: 70486

== ENCOUNTER 2023-11-30 20:14 | Emergency (ER) | payer MEDICARE, OTHER, SELFPAY ==
[2023-03-18 01:59] VITALS: BMI 24.3
[2023-11-30] VITALS (8 sets, daily range): BP systolic 119–131; BP diastolic 64–75; PULSE 66–81; RESP 18–27; O2SAT 92–97; BMI 29.7
--- NOTE | 2023-11-30 20:20 | DI.RAD.S_ITS ---
PROCEDURE: XR CHEST 1V INDICATIONS: chest pain TECHNIQUE: One view of the chest was acquired. COMPARISON: Merged [facility], CR, XR CHEST 2V, 05/31/2023, 11:45. FINDINGS: Surgical changes and devices: None. Lungs and pleura: Lungs are clear. No pleural effusions or pneumothorax. Mediastinum: Mediastinal contours appear normal. Heart size is normal. Bones and chest wall: No suspicious bony lesions. Overlying soft tissues appear unremarkable. IMPRESSION: No acute cardiopulmonary abnormality is seen. Approved by: Abelardo Tyler M.D. on 11/30/2023 at 19:35
--- NOTE | 2023-11-30 20:20 | EKG_ITS ---
[address] [address] Test Date: 2023-11-30 Pat Name: Jinny Felder Department: Room: Gender: Female Quarry Equipment Operator: YUMI : 1960 Requested By: Order Number: [id number] Reading MD: Trevon Roldan Measurements Intervals [place] Rate: 73 P: 57 DE: 124 QRS: 15 QRSD: 70 T: 48 QT: 398 QTc: 438 Interpretive Statements Poor data quality, interpretation may be adversely affected Normal sinus rhythm Low voltage QRS Septal infarct , age undetermined Electronically Signed On 12-02-2023 7:24:55 PDT by Trevon Roldan
[2023-11-30] MEDS: ASPIRIN 81 MG CHEW TAB 162 MG PO (20:27)
[2023-11-30 20:29] LABS: Add Manual Diff / Slide Review NO; Basophils Absolute Auto 100 /uL (0-100); Basophils Percent Auto 1.2 % (0-2); Eosinophils Absolute Auto 200 /uL (0-450); Eosinophils Percent Auto 3.8 % (2-4); Hematocrit 41.4 % (36-46); Hemoglobin 14.1 g/dL (12.0-16.0); Lymphocytes Absolute Auto 1900 /uL (1100-4500); Lymphocytes Percent Auto 29.1 % (25-40); Mean Corpuscular HGB Conc 34.1 % (30-36); Mean Corpuscular Hemoglobin 34.9 PG (26-34); Mean Corpuscular Volume 102.2 fL (80-100); Monocytes Absolute Auto 600 /uL (0-900); Monocytes Percent Auto 9.3 % (3-14); Neutrophils Absolute Auto 3700 /uL (1500-7000); Neutrophils Percent Auto 56.6 % (50-75); Platelet Count 261 X10^3/uL (150-400); Red Blood Cell Count 4.05 X10^6/uL (4.0-5.2); Red Cell Distribution Width 12.2 % (11.6-14.8); White Blood Cell Count 6.5 X10^3/uL (4.5-11.0)
[2023-11-30 20:44] LABS: Alanine Aminotransferase 23 IU/L (<35); Albumin 4.5 g/dL (3.5-5.0); Albumin Globulin Ratio 1.6 (1.0-2.8); Alkaline Phosphatase 90 U/L (38-126); Aspartate Aminotransferase 27 IU/L (14-36); BUN Creatinine Ratio 22.5 (6-22); Bilirubin Total 0.5 mg/dL (0.2-1.3); Blood Urea Nitrogen 23 mg/dL (7-17); Carbon Dioxide 25 mmol/L (22-32); Chloride 106 mmol/L (98-107); Creatine Kinase 48 U/L (30-135); Estimated Glomerular Filt Rate > 60 mL/min (>60); Globulin 2.8 g/dL (1.7-4.1); Glucose 111 mg/dL (80-110); HEMOLYSIS 20 (0-50); Lipase 57 U/L (23-300); Magnesium 2.3 mg/dL (1.6-2.3); Potassium 4.1 mmol/L (3.4-5.1); Sodium 137 mmol/L (137-145); Total Protein 7.3 g/dL (6.3-8.2)
[2023-11-30 20:55] LABS: NT-proBNP (BNP-Adult 18+) 54 pg/mL (<125); Troponin I < 0.012 ng/mL (0.01-0.034)
--- NOTE | 2023-11-30 20:57 | ED.CHESTPAIN ---
HPI - Chest Pain General Chief Complaint: Chest Pain Stated Complaint: chest pains Time Seen by Provider: 11/30/23 20:16 Source: patient Mode of arrival: Ambulatory Limitations: no limitations History of Present Illness HPI narrative: 63-year-old female with history of COPD, former tobacco abuse (quit 2022) presents by private vehicle from home for episode of substernal chest pain that began approximately 1 hour prior to arrival. Patient reports a cramping pain in the lower center of her chest that began while she was crocheting and watching TV at home. Took 2 baby aspirin, but when pain persisted she decided to present for evaluation. Reports history of coronary disease in her mom, no other known family members with coronary disease Related Data Home Medications Medication Instructions Recorded Confirmed cetirizine 10 mg tablet (Zyrtec) 10 mg PO QPM 05/01/18 11/05/23 cholecalciferol (vitamin D3) 125 5,000 unit PO QPM 05/01/18 11/05/23 mcg (5,000 unit) tablet (Vitamin D3) [id number] 1 tab PO QPM 05/01/18 11/05/23 tablet (Multivitamin 50 Plus tablet) albuterol sulfate 90 mcg/actuation 2 puff inhalation Q6H PRN 03/04/23 11/05/23 breath activated powder inhaler shortness of breath or wheezing fluticasone 500 mcg-salmeterol 50 1 inh inhalation PRN 06/12/23 11/05/23 mcg/dose blistr powdr for inhalation (Wixela Inhub) tiotropium bromide 1.25 2 puff inhalation DAILY 06/12/23 11/05/23 mcg/actuation mist for inhalation (Spiriva Respimat) azelastine 137 mcg (0.1 %) nasal 1 spray intranasal BID 11/05/23 11/05/23 spray aerosol diclofenac sodium 1 % topical gel topical 11/05/23 11/05/23 escitalopram oxalate 10 mg tablet 10 mg PO DAILY 11/05/23 11/05/23 fluticasone propionate 50 1 spray intranasal DAILY 11/05/23 11/05/23 mcg/actuation nasal spray,suspension Previous Rx's Medication Instructions Recorded nebulizer and compressor #1 ea 03/06/23 Allergies Allergy/AdvReac Type Severity Reaction Status Date / Time hydrocodone [From VICODIN] Allergy Mild flu like Verified 11/05/23 13:14 symptoms Patient History Medical History Environmental allergies Smoker Depression with anxiety COPD (chronic obstructive pulmonary disease) Anxiety and depression Seasonal allergies Asthma Surgical History History of partial hysterectomy History of tonsillectomy History of tubal ligation Family History Other Family history non-contributory Social History household members: spouse Smoking Status: Former smoker alcohol intake: current additional social history: No EtOH Smoking Status: Former smoker tobacco type: cigarettes alcohol intake frequency: holidays/special occasions only Substance Use Type: does not use Exam Initial Vital Signs Initial Vital Signs: Vital Signs Pulse Rate 79 11/30/23 20:15 Respiratory Rate 22 11/30/23 20:15 Blood Pressure 119/64 11/30/23 20:15 Pulse Oximetry 97 11/30/23 20:15 Oxygen Delivery Method Room Air 11/30/23 20:15 Const: Awake, alert, no acute distress, nontoxic appearing Cardiac: regular rate, regular rhythm RESP: unlabored, clear bilaterally, no wheezing GI: Soft, nontender, nondistended, no rebound, no guarding MSK: Atraumatic, full range of motion, pulses equal Skin: Warm, Dry, intact, no rashes Neuro: AO x3, CN II-XII grossly intact, moves all extremities Course Orders Ordered: ED Orders 11/30/23 20:20 XR chest 1V Stat Complete Blood Count AUTO DIFF Stat Comprehensive Metabolic Panel Stat Lipase Stat Magnesium Stat NT-proBNP (BNP-Adult 18+) Stat Troponin & CK Cardiac Panel Stat EKG-12 Lead Stat 11/30/23 22:12 Troponin I Stat Discontinued Medications Aspirin (Aspirin 81 Mg Chew Tab) 162 mg PO NOW ONE Stop: 11/30/23 20:22 Last Admin: 11/30/23 20:27 Dose: 162 mg Documented By: GC Vital Signs Vital signs: Vital Signs - 8 hr 11/30/23 20:15 11/30/23 20:18 11/30/23 20:18 Pulse Rate 79 81 Respiratory Rate 22 Blood Pressure 119/64 119/64 Pulse Oximetry 97 94 Oxygen Delivery Method Room Air 11/30/23 20:30 11/30/23 21:00 11/30/23 21:30 Pulse Rate 74 67 66 Respiratory Rate 20 20 18 Blood Pressure Pulse Oximetry 94 92 94 Oxygen Delivery Method 11/30/23 21:35 11/30/23 21:35 11/30/23 22:00 Pulse Rate 68 68 Respiratory Rate 27 H 20 Blood Pressure 125/70 Pulse Oximetry 93 92 Oxygen Delivery Method 11/30/23 22:00 11/30/23 22:30 11/30/23 22:30 Pulse Rate 68 Respiratory Rate 18 Blood Pressure 127/71 131/75 Pulse Oximetry 93 Oxygen Delivery Method Room Air MDM - Chest Pain Differential Diagnosis Differential diagnosis: Likely atypical chest pain, costochondritis and chest pain Lab Data 11/30/23 20:20 11/30/23 20:20 Labs: Lab Results 11/30/23 11/30/23 Range/Units 20:20 22:12 WBC 6.5 (4.5-11.0) X10^3/uL RBC 4.05 (4.0-5.2) X10^6/uL Hgb 14.1 (12.0-16.0) g/dL Hct 41.4 (36-46) % MCV 102.2 H (80-100) fL MCH 34.9 H (26-34) PG MCHC 34.1 (30-36) % RDW 12.2 (11.6-14.8) % Plt Count 261 (150-400) X10^3/uL Neut % (Auto) 56.6 (50-75) % Lymph % (Auto) 29.1 (25-40) % [place] % (Auto) 9.3 (3-14) % Eos % (Auto) 3.8 (2-4) % Baso % (Auto) 1.2 (0-2) % Neut # (Auto) 3700 (9932-1833) /uL Lymph # (Auto) 1900 (2606-0746) /uL [place] # (Auto) 600 (0-900) /uL Eos # (Auto) 200 (0-450) /uL Baso # (Auto) 100 (0-100) /uL Sodium 137 (137-145) mmol/L Potassium 4.1 (3.4-5.1) mmol/L Chloride 106 (98-107) mmol/L Carbon Dioxide 25 (22-32) mmol/L BUN 23 H (7-17) mg/dL Creatinine 1.02 (0.52-1.04) mg/dL Estimated GFR > 60 (>60) mL/min BUN/Creatinine Ratio 22.5 H (6-22) Glucose 111 H (80-110) mg/dL Calcium 9.0 (8.4-10.2) mg/dL Magnesium 2.3 (1.6-2.3) mg/dL Total Bilirubin 0.5 (0.2-1.3) mg/dL AST 27 (14-36) IU/L ALT 23 (<35) IU/L Alkaline Phosphatase 90 (38-126) U/L Total Creatine Kinase 48 (30-135) U/L Troponin I < 0.012 < 0.012 (0.01-0.034) ng/mL NT-Pro-B Natriuret Pep 54 (<125) pg/mL Total Protein 7.3 (6.3-8.2) g/dL Albumin 4.5 (3.5-5.0) g/dL Globulin 2.8 (1.7-4.1) g/dL Albumin/Globulin Ratio 1.6 (1.0-2.8) Lipase 57 (23-300) U/L Imaging Data Chest x-ray: Radiologist's Impression: PROCEDURE: XR CHEST 1V INDICATIONS: chest pain TECHNIQUE: One view of the chest was acquired. COMPARISON: [facility], , XR CHEST 2V, 05/31/2023, 11:45. FINDINGS: Surgical changes and devices: None. Lungs and pleura: Lungs are clear. No pleural effusions or pneumothorax. Mediastinum: Mediastinal contours appear normal. Heart size is normal. Bones and chest wall: No suspicious bony lesions. Overlying soft tissues appear unremarkable. IMPRESSION: No acute cardiopulmonary abnormality is seen. Approved by: Abelardo Tyler M.D. on 11/30/2023 at 19:35 ECG Data Interpretation: Normal sinus rhythm at 73 beats per minute. Normal AK, no ST T wave changes, no STEMI MDM Narrative Medical decision making narrative: Well-appearing patient with 1 hour of central chest pain. Resolved after administration of aspirin. Currently pain-free. Laboratory work and imaging obtained. Initial EKG nonischemic. Laboratory work reviewed, no significant abnormalities identified. Troponins undetectable x2, chest x-ray unremarkable. Patient has had no return of chest pain since her arrival to the emergency department. Patient counseled on lab and imaging findings. Patient was recommended to follow up with her primary care doctor and Cardiology, referral number was provided. ED return precautions discussed at bedside. Patient expressed understanding of the plan and is in agreement at this time. All questions answered at the time of discharge. Discharge Plan Departure Patient Disposition: Home Clinical Impression: Chest pain Instructions: DI for Chest Pain Activity Restrictions/Additional Instructions: Your laboratory work, EKG, and chest x-ray today were normal. I do not know the cause of your chest pain, but it does not appear to be a heart attack at this time. I recommend following up with your primary care doctor. Based on your age and risk factors I would recommend following up with the project development engineer as well, a referral number has been provided. Prescriptions: No Action cetirizine [Zyrtec] 10 mg Tablet 10 mg PO QPM Multivitamin 50 Plus Tablet 1 tab PO QPM cholecalciferol (vitamin D3) [Vitamin D3] 5,000 unit Tablet 5,000 unit PO QPM albuterol sulfate 90 mcg/actuation aerosol powdr breath activated 2 puff INHALATION Q6H PRN (Reason: shortness of breath or wheezing) Rx Instructions: administer with spacer (DME) nebulizer and compressor Device See Rx Instructions .Route Qty: 1 0RF Rx Instructions: One nebulizer and compressor fluticasone propionate 50 mcg/actuation spray,suspension 1 spray intranasal DAILY diclofenac sodium 1 % gel topical azelastine 137 mcg (0.1 %) aerosol,spray 1 spray intranasal BID Rx Instructions: administer into each nostril escitalopram oxalate 10 mg tablet 10 mg PO DAILY fluticasone propion-salmeterol [Wixela Inhub] 500-50 mcg/dose blister with device 1 inh inhalation PRN Patient Comments: [NO ORIGINAL SIG] Spiriva Respimat 1.25 mcg/actuation mist 2 puff inhalation DAILY Referrals: Maximiliano Javier MD [Primary Care Provider] - Ivan Silveira MD [Physician] - Stand Alone Forms: Patient Portal/API
[2023-11-30 22:42] LABS: Troponin I < 0.012 ng/mL (0.01-0.034)
== END 2023-11-30 22:58 | disposition home or self-care (01) ==
PROVIDERS: Emergency Provider Emergency Medicine; PCP Internal Medicine
DX: R07.9 Chest pain, unspecified (principal)
CPT/HCPCS: 36415; 71045; 80053; 82550; 83690; 83735; 83880; 84484; 85025; 93005; 99284

== ENCOUNTER → 2024-08-03 10:22 | Outpatient (CLI) | payer MEDICARE, OTHER, SELFPAY ==
[2023-03-18 01:59] VITALS: BMI 24.3
--- NOTE | 2024-08-03 10:24 | DI.RAD.S_ITS ---
PROCEDURE: XR DEXA AXIAL SKELETON INDICATIONS: DISORDERS OF BONE DENSITY/LUNG CANCER SCREENING COMPARISON: [facility], , XR DEXA AXIAL SKELETON, 02/18/2023, 11:51. FINDINGS: Lumbar Spine: Bone mineral density 0.934 g/cm2, T score -0.8. There is interval 3.7% increase in total lumbar spine bone mineral density. Left Femoral Neck: Bone mineral density 0.583 g/cm2, T score -2.4. There is interval 1.7% decrease in left femoral neck bone mineral density. Left Hip: Bone mineral density 0.667 g/cm2, T score -2.3. There is interval 2.2% increase in total left hip bone mineral density. Fracture Risk Calculation (when applicable): 10-year fracture risk of a major osteoporotic fracture 17 percent and of a hip fracture 6.2 percent. (T score greater or equal to -1.0 to: NORMAL) (T score from -1.1 to -2.4: OSTEOPENIA) (T score less than or equal to -2.5: OSTEOPOROSIS) IMPRESSION: Osteopenia with increased 10 year fracture risk. Follow-up guidelines as follows: Osteoporosis: Consider a repeat DEXA and Vertebral Fracture Assessment (VFA) exam in 2 years or sooner if medically necessary, to reassess this patient's status. Osteopenia: Consider a repeat DEXA in 2-3 years to reassess this patient's status, or if there is a new clinical indication. Normal: Consider a repeat DEXA in 5 years or sooner, or if there is a new clinical indication. All treatment decisions require clinical judgment and consideration of individual patient factors, including patient preferences, comorbidities, previous drug use, risk factors not captured in the FRAX model (e.g., frailty, falls, vitamin D deficiency, increased bone turnover, interval significant decline in bone density ) and possible under- or over-estimation of fracture risk by FRAX. In addition, the NOF Guide recommends that FDA-approved medical therapies be considered in postmenopausal women and men age >= 50 years with a: * Hip or vertebral (clinical or morphometric) fracture * T-score of <=-2.5 at the spine or hip * Ten-year fracture probability by FRAX of >= 3% for hip fracture or >=20% for major osteoporotic fracture. Dictated by: David Silveira M.D. on 08/03/2024 at 16:19 Approved by: David Silveira M.D. on 08/03/2024 at 16:22
--- NOTE | 2024-08-03 10:25 | DI.CT.S_ITS ---
PROCEDURE: CT LUNG LOW DOSE SCREENING INDICATIONS: LUNG CANCER SCREENING TECHNIQUE: Noncontrast 2.0-2.5 mm thick sections acquired from the pulmonary apices to the posterior costophrenic angles. 7 mm thick axial MIP, and 5 mm coronal and sagittal reformats were then acquired. For radiation dose reduction, the following was used: automated exposure control, adjustment of mA and/or kV according to patient size. COMPARISON: [facility], CT, CT LUNG LOW DOSE SCREENING, 02/18/2023, 11:38. FINDINGS: Image quality: Diagnostic. Lower Neck: No enlarged lymph nodes. Thyroid: No thyroid nodules which require sonographic follow up, per consensus guidelines. Axillae: No enlarged lymph nodes. Chest Wall: Unremarkable. Bones: Visualized osseous structures appear intact without acute fracture or focal destructive lesion. No acute compression fractures of the imaged spine. Lungs and Pleura: No pneumothorax or pleural effusions. No consolidation. No new suspicious or enlarging pulmonary nodules. No septal thickening or nodularity. Visualized airways appear clear. Heart: Heart size is normal. No pericardial effusion. Coronary atherosclerotic vascular calcifications are noted. Thoracic Vessels: The aorta and pulmonary arteries demonstrate normal size. Mediastinum and Shakira: No enlarged lymph nodes. Esophagus: No wall thickening. Small hiatal hernia. Upper Abdomen: Visualized upper abdomen solid organs and bowel loops appear normal. IMPRESSION: No suspicious pulmonary nodules. LUNG-RADS 1; continued annual screening, if eligible. Clinically Significant Non-pulmonary Findings: None. Dictated by: Tobias Cage M.D. on 08/03/2024 at 14:50 Approved by: Tobias Cage M.D. on 08/03/2024 at 14:54
== END ==
PROVIDERS: PCP Internal Medicine
DX: M85.852 Other specified disorders of bone density and structure, left thigh (principal); F17.210 Nicotine dependence, cigarettes, uncomplicated; Z12.2 Encounter for screening for malignant neoplasm of respiratory organs; I25.10 Atherosclerotic heart disease of native coronary artery without angina pectoris; K44.9 Diaphragmatic hernia without obstruction or gangrene
CPT/HCPCS: 71271; 77080